=== PATIENT | female | born 1955 | race Hispanic/Latino ===

== ENCOUNTER 2018-03-09 11:18 | Emergency (ER) | payer BC ==
[~2018-03-09] VITALS: Ht 152.4 cm; Wt 90.7 kg
--- OUTSIDE RECORDS SUMMARY | 2018-03-09 11:22 | XMS REPORT | Summary of Care ---
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) Anxiety(Confirmed) Active Arrhythmia(Confirmed Active ) Back pain(Confirmed) Resolved Benign lipomatous Resolved tumor(Confirmed) Biopsy of lung using Resolved computed tomography (CT) guidance(Confirmed) Depression(Confirmed Active ) GERD Resolved (gastroesophageal reflux disease)(Confirmed) Hand Resolved numbness(Confirmed) Hard of Resolved hearing(Confirmed) Heart Resolved palpitations(Confirm ed) Hypercholesteremia(C Active onfirmed) Lung mass(Confirmed) Active 1lt eye blindness Allergies, Adverse Reactions, Alerts Substance Reaction Severity Status sulfa drugs Active Medications No data available for this section Medications Administered During Your Visit No data available for this section Immunizations No data available for this section Social History Social History Type Response
--- OUTSIDE RECORDS SUMMARY | 2018-03-09 11:22 | XMS REPORT | Continuity of Care Document ---
Author Author [facility] Interface Address Unknown Phone Unavailable Problems Problem Status Onset Date Classification Date Reported Comments Source DX: C34.90=MALIGNANT NEOPLASM OF UNSPECI Active 12/12/2017 [place] C34.90 Active 08/24/2017 [facility] Other specified interstitial pulmonary diseases 08/02/2017 11/02/2017 [facility] ACUTE RESPIRATORY, HYPOXEMIA, PNEUMONIA Active 07/20/2017 [facility] DIFF BREATHING Active 07/20/2017 [facility] Discharge Diagnosis: Acute low back pain with left-sided sciatica 09/07/2016 09/10/2016 [facility] BACK PAIN Active 09/07/2016 [facility] UNK Active 09/17/2015 [facility] LUNG CANCER Active 09/13/2015 [facility] Z12.31 - ENCNTR SCREEN MAMMOGRAM FOR MA Active 03/04/2015 [facility] [place] 786.6; ATRIAL MASS 162.9; ADENOCARCINOMA Active 06/24/2014 [facility] DIABETES Active 01/08/2014 [facility] RESTAGING DX:LUNG CA Active 11/27/2013 [facility] Acquired blindness, one eye<sup>1</sup> Active Problem 11/02/2017 [place] eye blindness [facility] [place] Acute rheumatic arthritis Resolved Problem 11/02/2017 [facility] [place] Anxiety Active Problem 11/02/2017 [facility] [place] Arrhythmia Active Problem 11/02/2017 [facility] [place] Back pain Resolved Problem 11/02/2017 [facility] [place] Benign lipomatous tumor Resolved Problem 11/02/2017 [facility] [place] Biopsy of lung using computed tomography guidance(<span ID="[id number]</span>) Resolved Problem 11/02/2017 [facility] [place] Depression Active Problem 11/02/2017 [facility] [place] GERD (<span ID="[id number]</span>) Resolved Problem 11/02/2017 [facility] [place] Hand numbness Resolved Problem 02/20/2014 [facility] [place] Hard of hearing Resolved Problem 11/02/2017 [facility] [place] Heart palpitations Resolved Problem 11/02/2017 [facility] [place] Hypercholesteremia Active Problem 02/20/2014 [facility] [place] Lung mass Active Problem 11/02/2017 [facility] [place] Arthritis Active Problem 11/02/2017 [facility], [facility] [place] COPD Active Problem 11/02/2017 [facility], [facility] [place] Diabetes Active Problem 11/02/2017 [facility], [facility] [place] Hand numbness Resolved Problem 11/02/2017 [facility] [place] Hypercholesteremia Active Problem 11/02/2017 [facility] [place] Acute pulmonary manifestations due to radiation 11/02/2017 [facility] Chronic obstructive pulmonary disease with exacerbation 11/02/2017 [facility] Type 2 diabetes mellitus with hypoglycemia without coma 11/02/2017 [facility] Body mass index 40.0-44.9, adult 11/02/2017 [facility] Personal history of other malignant neoplasm of bronchus and lung 11/02/2017 [facility] Adverse effect of glucocorticoids and synthetic analogues, initial encounter 11/02/2017 [facility] Radiological procedure and radiotherapy as the cause of abnormal reaction of the patient, or of later complication, without mention of misadventure at the time of the procedure 11/02/2017 [facility] predatory animal exterminator use of insulin 11/02/2017 [facility] Hyperlipidemia, unspecified 11/02/2017 [facility] Personal history of nicotine dependence 11/02/2017 [facility] Unqualified visual loss, left eye, normal vision right eye 11/02/2017 [facility] Other obesity due to excess calories 11/02/2017 [facility] Obstructive sleep apnea (pediatric) 11/02/2017 [facility] Bacteriuria 11/02/2017 [facility] Acute respiratory distress 11/02/2017 [facility] Hypoxemia 11/02/2017 [facility] Pure hyperglyceridemia Active Problem 02/10/2018 Barron De Jesus MD, [place] Benign hypertensive heart disease without heart failure Active Problem 02/10/2018 Barron De Jesus MD, [place] Malignant neoplasm of middle lobe, bronchus, or lung Active Problem 02/10/2018 Barron De Jesus MD, [place] Obesity, unspecified Active Problem 02/10/2018 Barron De Jesus MD, [place] Body mass index 38.0-38.9, adult Active Problem 02/10/2018 Barron De Jesus MD, [place] Type 2 diabetes mellitus with diabetic neuropathy, unspecified Active Problem 02/10/2018 Barron De Jesus MD, [place] Screening for cardiovascular disorders Active Problem 02/10/2018 Barron De Jesus MD, [place] Obesity, unspecified Active Problem 02/10/2018 Barron De Jesus MD, RONAL Malignant neoplasm of middle lobe, bronchus or lung Active Problem 02/10/2018 Barron De Jesus MD, [place] Hypertensive heart disease without heart failure Active Problem 02/10/2018 Barron De Jesus MD, [place] Pure hyperglyceridemia Active Problem 02/10/2018 Barron De Jesus MD, PA SOLITARY PULMONARY NODULE Active [facility] ACUTE RESPIRATORY DISTRESS Active [facility] HYPOXEMIA Active [facility] PNEUMONIA, UNSPECIFIED ORGANISM Active [facility] Medications Medication Details Route Status Patient Instructions Ordering Provider Order Date Source Levemir 10 unit, Route: SUB-Q, Bedtime, Dosing Weight 123.364, kg, Start date: 07/27/17 21:00:00 CDT, Duration: 30 day, Stop date: 08/25/17 21:00:00 CDT Inactive 07/28/2017 [facility] Lantus 100 units/mL 10 unit, 0.1 mL, Route: SUB-Q, Drug form: SOLN, Bedtime, Dosing Weight 123.364, kg, Start date: 07/27/17 21:00:00 CDT, Duration: 30 day, Stop date: 08/25/17 21:00:00 CDTNotes: (Same as: Lantus) Do not hold insulin without contacting prescriber WASTE: F/P - Black; E - Municipal Trash Bin "single patient use only" Inactive 07/28/2017 [facility] Insulin Syringes (U 100) 1 syr, SUB-Q, TID, # 100 syr, 0 Refill(s) Active 07/27/2017 [facility] OneTouch Ultra2 Blood Glucose Meter 1 ea, [facility], ONCE, Use for blood glucose monitoring, # 1 ea, Insulin dependent, Does not use insulin pump, Last DM eval date 07/27/17, 0 Refill(s) Active 07/27/2017 [facility] OneTouch Ultra Blue Blood Glucose Test Strip 1 ea, MISC, TID, Use for blood glucose monitoring., # 100 ea, Insulin dependent, Does not use insulin pump, Last DM eval date 07/27/17, 11 Refill(s) Active 07/27/2017 [facility] [place] for Injection Syringe Misc/Other 1 ea, MISC, Daily, # 30 ea, 11 Refill(s) Active 07/27/2017 [facility] Insulin Glargine 100 UNT/ML Injectable Solution 10 unit, SUB-Q, Bedtime, # 10 mL, 0 Refill(s), Pharmacy: [facility]/pharmacy #[id number] Active 07/27/2017 [facility] predniSONE 20 mg oral tablet 40 mg=2 tab, PO, Daily, X 14 day, # 28 tab, 0 Refill(s), Pharmacy: [facility]/pharmacy #[id number] No Longer Active 07/27/2017 [facility] Solu-Medrol 40 mg, 1 mL, Route: IVP, Drug form: INJ, Daily, Dosing Weight 115.909, kg, Start date: 07/26/17 9:00:00 CDT, Duration: 30 day, Stop date: 08/24/17 9:00:00 CDTNotes: (Same as:Solu-MEDROL, A-Methapred) No Longer Active 07/26/2017 [facility] Prednisone 40 mg, 2 tab, Route: PO, Drug form: TAB, Daily, Dosing Weight 123.364, kg, Start date: 07/26/17 9:00:00 CDT, Duration: 30 day, Stop date: 08/24/17 9:00:00 CDTNotes: Take with food. No Longer Active 07/26/2017 [facility] Insulin Glargine 100 UNT/ML Injectable Solution [Lantus] 25 unit, 0.25 mL, Route: SUB-Q, Drug form: SOLN, Bedtime, Dosing Weight 123.364, kg, Start date: 07/25/17 21:00:00 CDT, Duration: 30 day, Stop date: 08/23/17 21:00:00 CDTNotes: (Same as: Lantus) Do not hold insulin without contacting prescriber WASTE: F/P - Black; E - Municipal Trash Bin "single patient use only" No Longer Active 07/26/2017 [facility] Diflucan 200 mg, 2 tab, Route: PO, Drug form: TAB, [id number], Dosing Weight 123.364, kg, Start date: 07/25/17 18:00:00 CDT, Duration: 5 day, Stop date: 07/29/17 18:00:00 CDT, ABX Indication: Other (specify in C omments)Notes: (Same as: Diflucan) No Longer Active 07/25/2017 [facility] cetirizine 10 mg, 2 tab, Route: PO, Drug form: TAB, Daily, PRN Allergies, Start date: 07/25/17 9:33:00 CDT, Duration: 30 day, Stop date: 08/24/17 9:32:00 CDTNotes: (Same As: Zyrtec) No Longer Active 07/25/2017 [facility] Loratadine 10 mg, Route: PO, Drug form: TAB, Daily, Dosing Weight 123.364, kg, PRN Allergies, Start date: 07/25/17 9:26:00 CDT, Duration: 30 day, Stop date: 08/24/17 9:25:00 CDT Inactive 07/25/2017 [facility] Insulin Lispro 10 unit, 0.1 mL, Route: SUB-Q, Drug form: SOLN, TID-Before Meals, Dosing Weight 123.364, kg, PRN Blood Glucose Results, Start date: 07/25/17 9:05:00 CDT, Duration: 30 day, Stop date: 08/24/17 9:04:00 CDTNotes: (Same as: Humalog ) Roll in palms of hands gently; Do not shake `vigorously. "Single Patient Use Only " WASTE: F/P - Black; E - Municipal Trash Bin Stable for 28 days at room temperature. Expires in days from Date No Longer Active 07/25/2017 [facility] Glucagon 1 mg, Route: IM, Drug form: PDR/INJ, PRN, Dosing Weight 123.364, kg, PRN Blood Glucose Results, Start date: 07/25/17 9:05:00 CDT, Duration: 30 day, Stop date: 08/24/17 9:04:00 CDT No Longer Active 07/25/2017 [facility] Dextrose 50% Syringe 12.5 gm, 25 mL, Route: IVP, Drug Form: INJ, Dosing Weight 123.364, kg, PRN, PRN Blood Glucose Results, Start date: 07/25/17 9:05:00 CDT, Duration: 30 day, Stop date: 08/24/17 9:04:00 CDT No Longer Active 07/25/2017 [facility] Solu-Medrol 40 mg, 1 mL, Route: IVP, Drug form: INJ, Q12H, Dosing Weight 115.909, kg, Start date: 07/24/17 21:00:00 CDT, Duration: 30 day, Stop date: 08/23/17 9:00:00 CDTNotes: (Same as:Solu-MEDROL, A-Methapred) No Longer Active 07/25/2017 [facility] Insulin Glargine 100 UNT/ML Injectable Solution [Lantus] 10 unit, 0.1 mL, Route: SUB-Q, Drug form: SOLN, Bedtime, Dosing Weight 123.364, kg, Start date: 07/23/17 21:00:00 CDT, Duration: 30 day, Stop date: 08/21/17 21:00:00 CDTNotes: (Same as: Lantus) Do not hold insulin without contacting prescriber WASTE: F/P - Black; E - Municipal Trash Bin "single patient use only" No Longer Active 07/24/2017 [facility] Insulin Lispro 2 unit, 0.02 mL, Route: SUB-Q, Drug form: SOLN, Bedtime, Dosing Weight 123.364, kg, PRN Blood Glucose Results, Start date: 07/23/17 20:54:00 CDT, Duration: 30 day, Stop date: 08/22/17 20:53:00 CDTNotes: (Same as: Humalog ) Roll in palms of hands gently; Do not shake `vigorously. "Single Patient Use Only " WASTE: F/P - Black; E - Municipal Trash Bin Stable for 28 days at room temperature. Expires in days from Date No Longer Active 07/24/2017 [facility] Dextrose 50% Syringe 25 gm, 50 mL, Route: IVP, Drug Form: INJ, Dosing Weight 123.364, kg, PRN, PRN Blood Glucose Results, Start date: 07/23/17 20:54:00 CDT, Duration: 30 day, Stop date: 08/22/17 20:53:00 CDT No Longer Active 07/24/2017 [facility] Glucagon 1 mg, Route: IM, Drug form: PDR/INJ, PRN, Dosing Weight 123.364, kg, PRN Blood Glucose Results, Start date: 07/23/17 20:54:00 CDT, Duration: 30 day, Stop date: 08/22/17 20:53:00 CDT No Longer Active 07/24/2017 [facility] Insulin Lispro 2 unit, 0.02 mL, Route: SUB-Q, Drug form: SOLN, TID-Before Meals, Dosing Weight 123.364, kg, PRN Blood Glucose Results, Start date: 07/23/17 12:45:00 CDT, Duration: 30 day, Stop date: 08/22/17 12:44: 00 CDTNotes: (Same as: Humalog ) Roll in palms of hands gently; Do not shake `vigorously. "Single Patient Use Only " WASTE: F/P - Black; E - Municipal Trash Bin Stable for 28 days at room temperature. Expires in days from Date No Longer Active 07/23/2017 [facility] Dextrose 50% Syringe 25 gm, 50 mL, Route: IVP, Drug Form: INJ, Dosing Weight 123.364, kg, PRN, PRN Blood Glucose Results, Start date: 07/23/17 12:45:00 CDT, Duration: 30 day, Stop date: 08/22/17 12:44:00 CDT No Longer Active 07/23/2017 [facility] Glucagon 1 mg, Route: IM, Drug form: PDR/INJ, PRN, Dosing Weight 123.364, kg, PRN Blood Glucose Results, Start date: 07/23/17 12:45:00 CDT, Duration: 30 day, Stop date: 08/22/17 12:44:00 CDT No Longer Active 07/23/2017 [facility] Solu-Medrol 40 mg, 1 mL, Route: IVP, Drug form: INJ, Q8H, Dosing Weight 115.909, kg, Start date: 07/22/17 8:00:00 [employer], Duration: 30 day, Stop date: 08/21/17 0:00:00 CDTNotes: (Same as:Solu-MEDROL, A-Methapred) No Longer Active 07/22/2017 [facility] Lasix 20 mg, 2 mL, Route: IVP, Drug form: INJ, ONCE, Dosing Weight 115.909, kg, Start date: 07/22/17 7:48:00 [employer], Stop date: 07/22/17 7:48:00 CSTNotes: (Same as: Lasix) Inactive 07/22/2017 [facility] Singulair 10 mg, 1 tab, Route: PO, Drug form: TAB, QPM, Dosing Weight 115.909, kg, Start date: 07/21/17 17:00:00 [employer], Duration: 30 day, Stop date: 08/19/17 17:00:00 CDTNotes: (Same as:Singulair) No Longer Active 07/21/2017 [facility] Breo Ellipta 100 mcg-25 mcg inhalation powder 1 inhalation, Route: INHALATION, Drug Form: PWDR, Dosing Weight 115.909, kg, QPM, Start date: 07/21/17 17:00:00 [employer], Duration: 30 day, Stop date: 08/19/17 21:00:00 CDTNotes: (Same as: Breo Ellipta) No Longer Active 07/21/2017 [facility] Ceftriaxone 1 gm, Route: IVP, Drug form: PDR/INJ, [id number], Dosing Weight 106.818, kg, Start date: 07/21/17 16:00:00 [employer], Duration: 7 day, Stop date: 07/27/17 16:00:00 CDT, ABX Indication: PneumoniaNotes: (Same As: Rocephin). Use with 100 mL NS and infuse over 30 min MEDICATION WASTE Product Size: 1000 mg Product Wasted: ___ mg No Longer Active 07/21/2017 [facility] Azithromycin 500 mg, Route: IVPB, [id number], Dosing Weight 106.818, kg, Start date: 07/21/17 16:00:00 [employer], Duration: 3 day, Stop date: 07/23/17 16:00:00 CDT, ABX Indication: PneumoniaNotes: (Same As: Zithromax IV) No Longer Active 07/21/2017 [facility] Lovenox 40 mg, 0.4 mL, Route: SUB-Q, Drug form: INJ, [id number], Dosing Weight 115.909, kg, Start date: 07/21/17 16:00:00 [employer]SEM[employer]ER, Duration: 30 day, Stop date: 08/19/17 16:00:00 CDTNotes: (Same as: Lovenox) No Longer Active 07/21/2017 [facility] pneumococcal capsular polysaccharide type 1 vaccine / pneumococcal capsular polysaccharide type 10A vaccine / pneumococcal capsular polysaccharide type 11A vaccine / pneumococcal capsular polysaccharide type 12F vaccine / pneumococcal capsular polysacchar 0.5 mL, Route: IM, Drug Form: INJ, Daily, Start date: 07/21/17 9:00:00 [employer], Duration: 1 doses or times, Stop date: 07/21/17 9:00:00 CSTNotes: (Same as: Pneumovax 23) Refrigerate Inactive 07/21/2017 [facility] Crestor 5 mg, 1 tab, Route: PO, Drug form: TAB, Daily, Dosing Weight 115.909, kg, Start date: 07/21/17 9:00:00 [employer], Duration: 30 day, Stop date: 08/19/17 21:00:00 CDTNotes: Same as Crestor No Longer Active 07/21/2017 [facility] Lisinopril 5 mg, 1 tab, Route: PO, Drug form: TAB, Daily, Dosing Weight 115.909, kg, Start date: 07/21/17 9:00:00 [employer], Duration: 30 day, Stop date: 08/19/17 9:00:00 CDTNotes: (Same as: Prinivil, Zestril) No Longer Active 07/21/2017 [facility] gabapentin 300 MG Oral Capsule 300 mg, 1 cap, Route: PO, Drug form: CAP, BID, Dosing Weight 115.909, kg, Start date: 07/21/17 9:00:00 [employer], Duration: 30 day, Stop date: 08/19/17 17:00:00 CDTNotes: (Same as: Neurontin) No Longer Active 07/21/2017 [facility] tramadol hydrochloride 50 MG Oral Tablet 50 mg, 1 tab, Route: PO, Drug form: TAB, Q12H, Dosing Weight 115.909, kg, Start date: 07/20/17 21:00:00 [employer]SEMBLER, Duration: 30 day, Stop date: 08/19/17 9:00:00 CDTNotes: Not to exceed 400mg/day. (Same As: Ultram) No Longer Active 07/21/2017 [facility] Doxepin Hydrochloride 25 MG Oral Capsule 25 mg, 1 cap, Route: PO, Drug form: CAP, Bedtime, Dosing Weight 115.909, kg, Start date: 07/20/17 21:00:00 [employer] ENG[employer]SEM[employer]ER, Duration: 30 day, Stop date: 08/18/17 21:00:00 CDTNotes: (Same as: SINEquan) No Longer Active 07/21/2017 [facility] Symbicort 80/4.5 inhalation aerosol with adapter 2 inhalation, Route: INHALATION, Drug Form: AERO/A, Dosing Weight 115.909, kg, Daily, PRN Shortness of breath, Start date: 07/20/17 20:45:00 [employer] ENG[employer]SEMBLER, Duration: 30 day, Stop date: 08/19/17 20:44:00 CDTNotes: (Same as: Symbicort) WASTE: Aerosol - Return to Pharmacy No Longer Active 07/21/2017 [facility] Alprazolam 0.25 MG Oral Tablet 0.25 mg, 1 tab, Route: PO, Drug form: TAB, Daily, Dosing Weight 115.909, kg, PRN Anxiety, Start date: 07/20/17 20:45:00 [employer]SEM[employer]ER, Duration: 30 day, Stop date: 08/19/17 20:44:00 CDTNotes: With food or milk (Same as: Xanax) No Longer Active 07/21/2017 [facility] Tylenol 650 mg, 20.3 mL, Route: PO, Drug form: LIQ, Q4H, Dosing Weight 115.909, kg, PRN Headache 7-10, Start date: 07/20/17 18:17:00 [employer]SEMBLER, Duration: 30 day, Stop date: 08/19/17 18:16:00 CDTNotes: Max acetaminoph ii=1976ik/day (4 gm/day). (Same as: Tylenol) No Longer Active 07/21/2017 [facility] Albuterol 0.833 MG/ML / Ipratropium [place] 0.167 MG/ML Inhalant Solution 3 mL, Route: NEB, Drug Form: SOLN, Dosing Weight 106.818, kg, PRN, PRN Respiratory Protocol, Start date: 07/20/17 17:15:00 [employer]SEM[employer]ER, Duration: 30 day, Stop date: 08/19/17 18:14:00 CDTNotes: (Same as: Duoneb) No Longer Active 07/20/2017 [facility] Sodium Chloride 0.9% IV 1,000 mL 1,000 mL, Rate: 100 ml/hr, Infuse over: 10 hr, Route: IV, Dosing Weight 106.818 kg, Total Volume: 1,000, Start date: 07/20/17 17:15:00 [employer]SEMBLER, Duration: 30 day, Stop date: 08/19/17 17:14:00 CDT, 2.17, m2 No Longer Active 07/20/2017 [facility] Saline Flush 0.9% 10 ml, Route: IVP, Drug Form: INJ, Dosing Weight 106.818, kg, PRN, PRN Line Flush, Start date: 07/20/17 17:15:00 [employer] ENG[employer]SEMBLER, Duration: 30 day, Stop date: 08/19/17 18:14:00 CDTNotes: (Same as: BD Posiflush) No Longer Active 07/20/2017 [facility] Guaifenesin 200 mg, 10 mL, Route: PO, Drug form: LIQ, Q4H, Dosing Weight 106.818, kg, PRN Cough, Start date: 07/20/17 17:15:00 [employer]SEM[employer]ER, Duration: 30 day, Stop date: 08/19/17 17:14:00 CDTNotes: (Same as: Robitussin) No Longer Active 07/20/2017 [facility] amoxicillin 875 mg oral tablet 875 mg=1 tab, PO, Q12H, 0 Refill(s) No Longer Active 07/20/2017 [facility] Symbicort 80/4.5 inhalation aerosol with adapter 2 puff, INHALATION, Daily, PRN Shortness of breath, 0 Refill(s) Active 07/20/2017 [facility] benzonatate 100 mg oral capsule 100 mg=1 cap, PO, TID, PRN as needed for cough, 0 Refill(s) Active 07/20/2017 [facility] Breo Ellipta 100 mcg-25 mcg inhalation powder 1 puff, INHALATION, QPM, 0 Refill(s) Active 07/20/2017 [facility] Incruse Ellipta 62.5 mcg inhalation powder 62.5 microgram, INHALATION, Q24H, 0 Refill(s) Active 07/20/2017 [facility] tramadol hydrochloride 50 MG Oral Tablet 50 mg=1 tab, PO, Q12H, 0 Refill(s) Active 07/20/2017 [facility] montelukast 10 MG Oral Tablet [Singulair] 10 mg=1 tab, PO, QPM, 0 Refill(s) Active 07/20/2017 [facility] Metformin hydrochloride 1000 MG Oral Tablet 500 mg=0.5 tab, PO, QPM, 0 Refill(s) Active 07/20/2017 [facility] celecoxib 200 mg oral capsule 200 mg=1 cap, PO, BID, 0 Refill(s) Active 07/20/2017 [facility] Metformin hydrochloride 1000 MG Oral Tablet 1,000 mg=1 tab, PO, QAM, 0 Refill(s) Active 07/20/2017 [facility] Ceftriaxone 1 gm, Route: IVP, ONCE, Dosing Weight 106.818, kg, Priority: STAT, Start date: 07/20/17 14:19:00 [employer]SEM[employer]ER, Stop date: 07/20/17 14:19:00 [employer]INE [employer]SEMBLER, ABX Indication: PneumoniaNotes: (Same As: Rocephin). Use with 100 mL NS and infuse over 30 min MEDICATION WASTE Product Size: 1000 mg Product Wasted: ___ mg Inactive 07/20/2017 [facility] Azithromycin 500 mg, Route: IVPB, ONCE, Dosing Weight 106.818, kg, Priority: STAT, Start date: 07/20/17 14:19:00 [employer]ARY ENGINE ASSEMBLER, Stop date: 07/20/17 14:19:00 [employer]ARY ENGINE ASSEMBLER, ABX Indication: PneumoniaNotes: (Same As: Zithromax IV) Inactive 07/20/2017 [facility] Albuterol 0.833 MG/ML / Ipratropium [place] 0.167 MG/ML Inhalant Solution 9 mL, Route: NEB, Drug Form: SOLN, Dosing Weight 106.818, kg, ONCE, STAT, Start date: 07/20/17 12:18:00 [employer]ARY ENGINE ASSEMBLER, Stop date: 07/20/17 12:18:00 [employer]ARY ENGINE ASSEMBLER Inactive 07/20/2017 [facility] Acetaminophen 300 MG / Codeine Phosphate 30 MG Oral Tablet [Tylenol with Codeine #3] 1 - 2 tab, PO, Q4H, PRN Pain, X 2 day, # 20 tab, 0 Refill(s) No Longer Active 09/07/2016 [facility] Diazepam 5 MG Oral Tablet [Valium] 5 mg, PO, Q8-12H, PRN Anxiety / dizziness, X 7 day, # 20 tab, 0 Refill(s) Active 09/07/2016 [facility] Dexamethasone 10 mg, 2.5 mL, Route: IM, Drug form: INJ, ONCE, Dosing Weight 106.818, kg, Priority: STAT, Start date: 09/07/16 7:47:00 CDT, Stop date: 09/07/16 7:47:00 CDT Inactive 09/07/2016 [facility] Valium 5 mg, 1 tab, Route: PO, Drug form: TAB, ONCE, Dosing Weight 106.818, kg, Priority: STAT, Start date: 09/07/16 7:37:00 CDT, Stop date: 09/07/16 7:37:00 CDTNotes: (Same as: Valium) Inactive 09/07/2016 [facility] Acetaminophen 325 MG / Hydrocodone Bitartrate 10 MG Oral Tablet [[place] 10/325] 1 tab, Route: PO, Drug Form: TAB, Dosing Weight 106.818, kg, ONCE, STAT, Start date: 09/07/16 7:36:00 CDT, Stop date: 09/07/16 7:36:00 CDTNotes: Do not exceed 4gm/day of acetaminophen. (Same as: [place] 325/10) Inactive 09/07/2016 [facility] Ketorolac 60 mg, 2 mL, Route: IM, Drug form: INJ, ONCE, Dosing Weight 106.818, kg, Priority: STAT, Start date: 09/07/16 7:34:00 CDT, Stop date: 09/07/16 7:34:00 CDTNotes: (Same as:Toradol) IV bolus must be given >15 seconds. Give IM administration slowly and deeply into the muscle. Not for use > 4 days MEDICATION WASTE Product Size: 60 mg Product Wasted: ___ mg Inactive 09/07/2016 [facility] Lasix 20 mg, 2 mL, Route: IVP, Drug form: INJ, Q6H, Dosing Weight 108.864, kg, Start date: 09/28/15 16:54:00 CDT, Stop date: 09/28/15 23:00:00 CDTNotes: (Same as: Lasix) Inactive 09/28/2015 [facility] Insulin, Aspart, Human 8 unit, 0.08 mL, Route: SUB-Q, Drug form: SOLN, TID-Before Meals, Dosing Weight 108.864, kg, PRN Blood Glucose Results, Start date: 09/28/15 15:45:00 CDT, Duration: 30 day, Stop date: 10/28/15 15:44:00 CDTNotes: Roll in palms of hands gently; Do not shake vigorously. (Same as: NovoLOG) "single patient use only" WASTE: F/P - Black; E - Municipal Trash Bin Stable for 28 days at room temperature. Expires in days from Date No Longer Active 09/28/2015 [facility] Dextrose 50% Syringe 25 gm, 50 mL, Route: IVP, Drug Form: INJ, Dosing Weight 108.864, kg, PRN, PRN Blood Glucose Results, Start date: 09/28/15 15:45:00 CDT, Duration: 30 day, Stop date: 10/28/15 15:44:00 CDT No Longer Active 09/28/2015 [facility] Glucagon 1 mg, Route: IM, Drug form: PDR/INJ, PRN, Dosing Weight 108.864, kg, PRN Blood Glucose Results, Start date: 09/28/15 15:45:00 CDT, Duration: 30 day, Stop date: 10/28/15 15:44:00 CDT No Longer Active 09/28/2015 [facility] Lasix 20 mg, 2 mL, Route: IV, Drug form: INJ, ONCE, Dosing Weight 108.864, kg, PRN Blood Transfusion, Start date: 09/28/15 9:27:00 CDT, Stop date: 09/28/15 9:27:00 CDTNotes: (Same as: Lasix) Inactive 09/28/2015 [facility] Venofer 300 mg, 15 mL, Route: IV, BID, Dosing Weight 108.864, kg, Start date: 09/28/15 9:00:00 CDT, Duration: 6 doses or times, Stop date: 09/30/15 17:00:00 CDTNotes: Each 5ml contains 100mg elemental iron. Mix with NS (Same as:Venofer) Administer IV only. MEDICATION WASTE Product Size: 100 mg Product Wasted: ___ mg No Longer Active 09/28/2015 [facility] Solu-Cortef 25 mg, 0.5 mL, Route: IVP, Drug form: PDR/INJ, Q12H, Dosing Weight 108.864, kg, Start date: 09/28/15 0:00:00 CDT, Duration: 30 day, Stop date: 10/27/15 12:00:00 CDTNotes: (Same as: Solu-CORTEF) No Longer Active 09/28/2015 [facility] Milk of Magnesia 30 ml, Route: PO, Drug Form: SUSP, Dosing Weight 108.864, kg, Bedtime, PRN as needed for constipation, Start date: 09/27/15 14:48:00 CDT, Duration: 30 day, Stop date: 10/27/15 14:47:00 CDTNotes: (Same as: Milk of Magnesia, MOM) No Longer Active 09/27/2015 [facility] Morphine 4 mg, 2 mL, Route: IV, Drug form: INJ, ONCALL, Dosing Weight 108.864, kg, Start date: 09/27/15 9:00:00 CDT, Duration: 30 day, Stop date: 10/27/15 8:59:00 CDTNotes: (Same as:MORPhine Sulfate) Inactive 09/27/2015 [facility] Albuterol 0.83 MG/ML Inhalant Solution 2.5 mg, 3.01 mL, Route: NEB, Drug form: SOLN, RQ4H, Dosing Weight 108.864, kg, Start date: 09/27/15 7:00:00 CDT, Duration: 30 day, Stop date: 10/27/15 3:00:00 CDTNotes: SEE RT DOCUMENTATION (Same as: Proventil) No Longer Active 09/27/2015 [facility] Solu-Cortef 50 mg, 1 mL, Route: IVP, Drug form: PDR/INJ, Q12H, Dosing Weight 108.864, kg, Start date: 09/27/15 0:00:00 CDT, Duration: 30 day, Stop date: 10/26/15 12:00:00 CDTNotes: (Same as: Solu-CORTEF) Inactive 09/27/2015 [facility] Acetaminophen 325 MG / Hydrocodone Bitartrate 5 MG Oral Tablet 1 tab, Route: PO, Drug Form: TAB, Dosing Weight 108.864, kg, Q6H, PRN Pain Score 1-3, Start date: 09/26/15 14:49:00 CDT, Duration: 30 day, Stop date: 10/26/15 14:48:00 CDT Inactive 09/26/2015 [facility] Lasix 20 mg, 2 mL, Route: IV, Drug form: INJ, Daily, Dosing Weight 108.864, kg, Start date: 09/26/15 9:00:00 CDT, Duration: 30 day, Stop date: 10/25/15 9:00:00 CDTNotes: (Same as: Lasix) No Longer Active 09/26/2015 [facility] Lasix 20 mg, 2 mL, Route: IV, Drug form: INJ, ONCE, Dosing Weight 108.864, kg, Priority: NOW, Start date: 09/26/15 8:37:00 CDT, Stop date: 09/26/15 8:37:00 CDTNotes: (Same as: Lasix) Inactive 09/26/2015 [facility] Acetaminophen 300 MG / Codeine Phosphate 30 MG Oral Tablet [Tylenol with Codeine #3] 2 tab, Route: PO, Drug Form: TAB, Dosing Weight 108.864, kg, Q4H, PRN Pain Score 1-3, Start date: 09/26/15 8:36:00 CDT, Duration: 30 day, Stop date: 10/26/15 8:35:00 CDTNotes: Do not exceed 4gm/day of a cetaminophen. (Same as: Tylenol with Codeine # 3) No Longer Active 09/26/2015 [facility] Morphine 4 mg, 2 mL, Route: IV, Drug form: INJ, Q4H, Dosing Weight 108.864, kg, PRN Pain Score 4-6, Start date: 09/26/15 8:36:00 CDT, Duration: 30 day, Stop date: 10/26/15 8:35:00 CDTNotes: (Same as:MORPhine Sulfate) No Longer Active 09/26/2015 [facility] potassium chloride 20 mEq, 100 mL, Route: IV, Drug form: INJ, ONCE, Dosing Weight 108.864, kg, Start date: 09/26/15 8:35:00 CDT, Stop date: 09/26/15 8:35:00 CDTNotes: (Same as: KCL) Infuse no faster than 10 mEq/hr if given peripherally. Inactive 09/26/2015 [facility] Lasix 20 mg, 2 mL, Route: IV, Drug form: INJ, ONCE, Dosing Weight 108.864, kg, Priority: STAT, Start date: 09/25/15 22:19:00 CDT, Stop date: 09/25/15 22:19:00 CDTNotes: (Same as: Lasix) Inactive 09/26/2015 [facility] Protonix 40 mg, 1 tab, Route: PO, Drug form: ECTAB, Before Dinner, Start date: 09/25/15 16:30:00 CDT, Duration: 30 day, Stop date: 10/24/15 16:30:00 CDTNotes: Tablet should not be chewed or crushed. (Same as: Protonix) No Longer Active 09/25/2015 [facility] Lasix 20 mg, 2 mL, Route: IVP, Drug form: INJ, ONCE, Dosing Weight 108.864, kg, Start date: 09/25/15 16:22:00 CDT, Stop date: 09/25/15 16:22:00 CDTNotes: (Same as: Lasix) Inactive 09/25/2015 [facility] Zofran 4 mg, 2 mL, Route: IVP, Drug form: INJ, Q4H, Dosing Weight 108.864, kg, PRN Nausea, Start date: 09/25/15 11:38:00 CDT, Duration: 30 day, Stop date: 10/25/15 11:37:00 CDTNotes: (Same as: Zofran) MEDICATION WASTE Product Size: 4 mg Product Wasted: ___ mg No Longer Active 09/25/2015 [facility] Sodium Chloride 0.154 MEQ/ML Injectable Solution 250 mL, Rate: 30 ml/hr, Infuse over: 8.3 hr, Route: IV, Dosing Weight 108.864 kg, Total Volume: 250, Start date: 09/25/15 10:26:00 CDT, Duration: 30 day, Stop date: 10/25/15 10:25:00 CDT No Longer Active 09/25/2015 [facility] Morphine 3 mg, 1.5 mL, Route: IVP, Drug form: INJ, Q3H, Dosing Weight 108.864, kg, PRN Pain Score 7-10, Start date: 09/25/15 10:23:00 CDT, Duration: 30 day, Stop date: 10/25/15 10:22:00 CDTNotes: (Same as:MORPhine Sulfate) No Longer Active 09/25/2015 [facility] Sodium Chloride 0.154 MEQ/ML Injectable Solution 1,000 mL, Rate: 75 ml/hr, Infuse over: 13.3 hr, Route: IV, Dosing Weight 108.864 kg, Total Volume: 1,000, Start date: 09/25/15 10:19:00 CDT, Duration: 30 day, Stop date: 10/25/15 10:18:00 CDT Inactive 09/25/2015 [facility] magnesium sulfate + Sodium Chloride 0.9% IV 100 mL 3 gm, 6 mL, Route: IVPB, ONCE, Start date: 09/25/15 10:02:00 CDT, Stop date: 09/25/15 10:02:00 CDTNotes: (Same as: MgSO4) WASTE: F/P - Sink; E - Municipal Trash Bin MEDICATION WASTE Product Size: 1000 mg Product Wasted: ___ mg Inactive 09/25/2015 [facility] Magnesium Sulfate 3 gm, Route: IV, ONCE, Dosing Weight 108.864, kg, Start date: 09/25/15 9:42:00 CDT, Stop date: 09/25/15 9:42:00 CDT Inactive 09/25/2015 [facility] Omeprazole 40 mg, Route: PO, Drug form: DRC, Daily, Dosing Weight 108.864, kg, Start date: 09/25/15 9:00:00 CDT, Duration: 30 day, Stop date: 10/24/15 9:00:00 CDT No Longer Active 09/25/2015 [facility] gabapentin 300 MG Oral Capsule 300 mg, 1 cap, Route: PO, Drug form: CAP, Daily, Dosing Weight 108.864, kg, Start date: 09/25/15 9:00:00 CDT, Duration: 30 day, Stop date: 10/24/15 20:00:00 CDTNotes: (Same as: Neurontin) No Longer Active 09/25/2015 [facility] Doxepin Hydrochloride 25 MG Oral Capsule 25 mg, 1 cap, Route: PO, Drug form: CAP, Daily, Dosing Weight 108.864, kg, Start date: 09/25/15 9:00:00 CDT, Duration: 30 day, Stop date: 10/24/15 20:00:00 CDTNotes: (Same as: SINEquan) No Longer Active 09/25/2015 [facility] heparin 5,000 unit, 1 mL, Route: SUB-Q, Drug form: INJ, Q12H, Dosing Weight 108.864, kg, Start date: 09/25/15 9:00:00 CDT, Duration: 30 day, Stop date: 10/24/15 21:00:00 CDTNotes: porcine heparin No Longer Active 09/25/2015 [facility] Phenergan 12.5 mg, 0.5 mL, Route: IV Central, Q12H, Dosing Weight 108.864, kg, PRN Nausea & Vomiting, Start date: 09/25/15 8:50:00 CDT, Duration: 30 day, Stop date: 10/25/15 8:49:00 CDTNotes: Do not give IV push. (Same as: Phenergan) No Longer Active 09/25/2015 [facility] heparin 5,000 unit, Route: SUB-Q, Q12H, Dosing Weight 108.864, kg, Start date: 09/25/15 8:00:00 CDT, Duration: 30 day, Stop date: 10/24/15 21:00:00 CDT No Longer Active 09/25/2015 [facility] Morphine 3 mg, 1.5 mL, Route: IVP, Drug form: INJ, ONCE, Dosing Weight 108.864, kg, Start date: 09/25/15 7:44:00 CDT, Stop date: 09/25/15 7:44:00 CDTNotes: (Same as:MORPhine Sulfate) Inactive 09/25/2015 [facility] Solu-Cortef 50 mg, 1 mL, Route: IVP, Drug form: PDR/INJ, Q6H, Dosing Weight 108.864, kg, Start date: 09/25/15 6:00:00 CDT, Stop date: 10/25/15 0:00:00 CDTNotes: (Same as: Solu-CORTEF) No Longer Active 09/25/2015 [facility] Fentanyl 50 microgram, 1 mL, Route: IV, Drug form: INJ, Q30Min, Dosing Weight 108.864, kg, PRN Pain Score 6-10, Priority: Routine, Start date: 09/25/15 1:36:00 CDT, Duration: 30 day, Stop date: 10/25/15 1:35:00 CDTNotes: (Same as: Sublimaze) Preservative free. No Longer Active 09/25/2015 [facility] Fentanyl 50 microgram, 1 mL, Route: IV, Drug form: INJ, ONCE, Dosing Weight 108.864, kg, Start date: 09/25/15 1:35:00 CDT, Stop date: 09/25/15 1:35:00 CDTNotes: (Same as: Sublimaze) Preservative free. Inactive 09/25/2015 [facility] Solu-Cortef 100 mg, 2 mL, Route: IV, Drug form: PDR/INJ, ONCE, Dosing Weight 108.864, kg, Priority: NOW, Start date: 09/25/15 1:34:00 CDT, Stop date: 09/25/15 1:34:00 CDTNotes: (Same as: Solu-CORTEF) Inactive 09/25/2015 [facility] Fentanyl 50 microgram, 1 mL, Route: IVP, Drug form: INJ, ONCE, Dosing Weight 108.864, kg, Start date: 09/25/15 0:09:00 CDT, Stop date: 09/25/15 0:09:00 CDTNotes: (Same as: Sublimaze) Preservative free. Inactive 09/25/2015 [facility] Sodium Chloride 0.154 MEQ/ML Injectable Solution 1,000 mL, 1,000 ml/hr, Infuse Over: 1 hr, Route: IV, ONCE, Priority: STAT, Dosing Weight 108.864 kg, Start date: 09/25/15 0:08:00 CDT, Duration: 1 doses or times, Stop date: 09/25/15 0:08:00 CDT Inactive 09/25/2015 [facility] Albuterol 0.83 MG/ML Inhalant Solution 2.49 mg, 3 mL, Route: NEB, Drug form: SOLN, RQ4H, Dosing Weight 108.864, kg, Start date: 09/24/15 23:00:00 CDT, Duration: 30 day, Stop date: 10/24/15 19:00:00 CDTNotes: SEE RT DOCUMENTATION (Same as: Proventil) No Longer Active 09/25/2015 [facility] Cefoxitin 1000 MG Injection 1 gm, Route: IVPB, Drug form: INJ, ABXQ6H, Dosing Weight 108.864, kg, Start date: 09/24/15 21:00:00 CDT, Duration: 24 hr, Stop date: 09/25/15 15:00:00 CDT Inactive 09/25/2015 [facility] Naloxone 0.04 mg, 0.1 mL, Route: IVP, Drug form: INJ, Q2MIN, Dosing Weight 108.864, kg, PRN Narcotic Reversal, Start date: 09/24/15 20:54:00 CDT, Duration: 30 day, Stop date: 10/24/15 20:53:00 CDTNotes: Same as Narcan No Longer Active 09/25/2015 [facility] Morphine 30 mg, 30 mL, Route: IV, COMPLIANCE MONITOR Dose: 1 mg, COMPLIANCE MONITOR Lockout: 10 minutes, Continuous Basal Rate: 0 mg, 4 Hour Limit (In MG): 24, Drug Form: INJ, Continuous, Pain, Start date: 09/24/15 20:54:00 CDT, Duration: 30 day, Stop date: 10/24/15 20:53:00 CDTNotes: Dose: Delay: Basal rate: 4hr limit: (Same as:Rolf-Jenifer) No Longer Active 09/25/2015 [facility] Sodium Chloride 0.154 MEQ/ML Injectable Solution 1,000 mL, Rate: 75 ml/hr, Infuse over: 13.3 hr, Route: IV, Dosing Weight 108.864 kg, Total Volume: 1,000, Start date: 09/24/15 20:54:00 CDT, Duration: 30 day, Stop date: 10/24/15 20:53:00 CDT No Longer Active 09/25/2015 [facility] Insulin, Aspart, Human 4 unit, 0.04 mL, Route: SUB-Q, Drug form: SOLN, Bedtime, Dosing Weight 108.864, kg, PRN Blood Glucose Results, Start date: 09/24/15 19:04:00 CDT, Duration: 30 day, Stop date: 10/24/15 19:03:00 CDTNotes: Roll in palms of hands gently; Do not shake vigorously. (Same as: NovoLOG) "single patient use only" WASTE: F/P - Black; E - Squrl Trash Bin Stable for 28 days at room temperature. Expires in days from Date No Longer Active 09/25/2015 [facility] Glucagon 1 mg, Route: IM, Drug form: PDR/INJ, PRN, Dosing Weight 108.864, kg, PRN Blood Glucose Results, Start date: 09/24/15 19:04:00 CDT, Duration: 30 day, Stop date: 10/24/15 19:03:00 CDT No Longer Active 09/25/2015 [facility] Dextrose 50% Syringe 12.5 gm, 25 mL, Route: IVP, Drug Form: INJ, Dosing Weight 108.864, kg, PRN, PRN Blood Glucose Results, Start date: 09/24/15 19:04:00 CDT, Duration: 30 day, Stop date: 10/24/15 19:03:00 CDT No Longer Active 09/25/2015 [facility] Tylenol 650 mg, 2 tab, Route: PO, Drug form: TAB, Q6H, Dosing Weight 108.864, kg, PRN Pain 1-3/Temp > 100.4 F, Start date: 09/24/15 19:04:00 CDT, Duration: 30 day, Stop date: 10/24/15 19:03:00 CDTNotes: Do not exceed 4 gm/day. (Same as: Tylenol) No Longer Active 09/25/2015 [facility] Zofran 4 mg, Route: IV, Q6H, Dosing Weight 108.864, kg, PRN Nausea, Start date: 09/24/15 19:04:00 CDT, Duration: 30 day, Stop date: 10/24/15 19:03:00 CDT Inactive 09/25/2015 [facility] Phenergan 12.5 mg, Route: IVPB, ONCE, Dosing Weight 108.864, kg, Start date: 09/24/15 18:27:00 CDT, Stop date: 09/24/15 18:27:00 CDT Inactive 09/24/2015 [facility] Albumin Human, CHCF 50 MG/ML Injectable Solution 25 gm, 500 mL, 250 ml/hr, Route: IV, Drug Form: INJ, Dosing Weight 108.864, kg, ONCE, Start date: 09/24/15 18:03:00 CDT, Stop date: 09/24/15 18:03:00 CDTNotes: LOT#: Mfg: (Same as: Albuminar) "blood product derivative" WASTE: F/P - Red; E -Red MEDICATION WASTE Product Size: 25 gm Product Wasted: ___ gm Inactive 09/24/2015 [facility] Ancef 1 gm, 100 mL, Route: IVPB, Drug form: INJ, ABXQ6H, Dosing Weight 108.864, kg, Start date: 09/24/15 18:00:00 CDT, Duration: 1 day, Stop date: 09/25/15 14:00:00 CDT No Longer Active 09/24/2015 [facility] Zofran 4 mg, 2 mL, Route: IV, Drug form: INJ, Q6H, Dosing Weight 108.864, kg, PRN Nausea, Start date: 09/24/15 17:49:00 CDT, Duration: 30 day, Stop date: 10/24/15 17:48:00 CDTNotes: (Same as: Zofran) MEDICATION WASTE Product Size: 4 mg Product Wasted: ___ mg No Longer Active 09/24/2015 [facility] Morphine 30 mg, 30 mL, Route: IV, COMPLIANCE MONITOR Dose: 1 mg, COMPLIANCE MONITOR Lockout: 10 minutes, Continuous Basal Rate: 0 mg, 4 Hour Limit (In MG): 24, Drug Form: INJ, Continuous, Start date: 09/24/15 17:30:00 CDT, Duration: 30 day, Stop date: 10/24/15 17:29:00 CDTNotes: Dose: Delay: Basal rate: 4hr limit: (Same as:Greg) Inactive 09/24/2015 [facility] Naloxone 0.04 mg, 0.1 mL, Route: IVP, Drug form: INJ, Q2MIN, Dosing Weight 108.864, kg, PRN Narcotic Reversal, Start date: 09/24/15 17:04:00 CDT, Duration: 30 day, Stop date: 10/24/15 17:03:00 CDTNotes: Same as Narcan Inactive 09/24/2015 [facility] Lactated Ringers IV 1,000 mL 1,000 mL, Rate: 125 ml/hr, Infuse over: 8 hr, Route: IV, Dosing Weight 108.864 kg, Total Volume: 1,000, Start date: 09/24/15 17:01:00 CDT, Duration: 30 day, Stop date: 10/24/15 17:00:00 CDT Inactive 09/24/2015 [facility] Insulin regular 5 unit, Route: IVP, ONCE, Dosing Weight 108.864, kg, Start date: 09/24/15 16:43:00 CDT, Stop date: 09/24/15 16:43:00 CDT Inactive 09/24/2015 [facility] Albumin Human, CHCF 50 MG/ML Injectable Solution 25 gm, 500 mL, 250 ml/hr, Route: IV, Drug Form: INJ, Dosing Weight 108.864, kg, ONCE, Start date: 09/24/15 16:39:00 CDT, Stop date: 09/24/15 16:39:00 CDTNotes: LOT#: Mfg: (Same as: Albuminar) "blood product derivative" WASTE: F/P - Red; E -Red MEDICATION WASTE Product Size: 25 gm Product Wasted: ___ gm Inactive 09/24/2015 [facility] Ephedrine 50 mg, Route: IM, ONCE, Dosing Weight 108.864, kg, Start date: 09/24/15 16:24:00 CDT, Stop date: 09/24/15 16:24:00 CDT Inactive 09/24/2015 [facility] Norepinephrine 8 mg, 8 mL, Rate: Titrate, Start Dose: 5 microgram/min, Titration: 2 microgram/min every 2-5 minutes, Goal(s): MAP >=65 mmHg, Max Dose: 70 microgram/min, Route: IV, Dosing Weight 108.864 kg, Total Vo lume: 250, Start date: 09/24/15 16:00:00 CDT, Durat...Notes: Not for direct administration - DILUTE. Protect from light. (Same as:Levophed). Administer by either central venous catheter or peripherally-inserted central catheter (PICC) line. No Longer Active 09/24/2015 [facility] Hextend 500 ml, Route: IVPB, Dosing Weight 108.864, kg, ONCE, Start date: 09/24/15 15:31:00 CDT, Duration: 1 doses or times, Stop date: 09/24/15 15:31:00 CDT Inactive 09/24/2015 [facility] Promethazine 6.25 mg, Route: IVPB, ONCE, Dosing Weight 108.864, kg, PRN Nausea & Vomiting, Start date: 09/24/15 14:30:00 CDT Inactive 09/24/2015 [facility] Ondansetron 4 mg, Route: IVP, ONCE, Dosing Weight 108.864, kg, PRN Nausea & Vomiting, Start date: 09/24/15 14:30:00 CDT Inactive 09/24/2015 [facility] Albuterol 0.83 MG/ML Inhalant Solution 2.49 mg, Route: NEB, Q20Min, Dosing Weight 108.864, kg, PRN Wheezing, Priority: STAT, Start date: 09/24/15 14:30:00 CDT, Duration: 30 day, Stop date: 10/24/15 14:29:00 CDT Inactive 09/24/2015 [facility] Diphenhydramine 12.5 mg, Route: IVP, Drug form: INJ, Q6H, Dosing Weight 108.864, kg, PRN Itching, Start date: 09/24/15 14:30:00 CDT, Duration: 30 day, Stop date: 10/24/15 14:29:00 CDT Inactive 09/24/2015 [facility] Naloxone 0.04 mg, Route: IVP, Q2MIN, Dosing Weight 108.864, kg, PRN Narcotic Reversal, Start date: 09/24/15 14:30:00 CDT, Duration: 8 doses or times, Stop date: Limited # of times Inactive 09/24/2015 [facility] Fentanyl 25 microgram, Route: IVP, Q5Min, Dosing Weight 108.864, kg, PRN Pain Score 4-6, Start date: 09/24/15 14:30:00 CDT, Duration: 4 doses or times, Stop date: Limited # of times Inactive 09/24/2015 [facility] Hydromorphone 0.5 mg, Route: IVP, Q5Min, Dosing Weight 108.864, kg, PRN Pain Score 7-10, Start date: 09/24/15 14:30:00 CDT, Duration: 4 doses or times, Stop date: Limited # of times Inactive 09/24/2015 [facility] Meperidine 12.5 mg, Route: IVP, Q30Min, Dosing Weight 108.864, kg, PRN Other -See Comment, For shivering, Start date: 09/24/15 14:30:00 CDT, Duration: 2 doses or times, Stop date: Limited # of times Inactive 09/24/2015 [facility] Flumazenil 0.2 mg, Route: IVP, PRN, Dosing Weight 108.864, kg, PRN Benzodiazepine Reversal, Initial dose, Start date: 09/24/15 14:30:00 CDT, Duration: 30 day, Stop date: 10/24/15 14:29:00 CDT Inactive 09/24/2015 [facility] Oxycodone 10 mg, Route: PO, Drug form: TAB, Q4H, Dosing Weight 108.864, kg, PRN Pain Score 7-10, Start date: 09/24/15 14:30:00 CDT, Duration: 30 day, Stop date: 10/24/15 14:29:00 CDT Inactive 09/24/2015 [facility] Sodium Chloride 0.154 MEQ/ML Injectable Solution 500 mL, Rate: 125 ml/hr, Infuse over: 4 hr, Route: IV, Dosing Weight 108.864 kg, Total Volume: 500, Start date: 09/24/15 14:30:00 CDT, Duration: 30 day, Stop date: 10/24/15 14:29:00 CDT Inactive 09/24/2015 [facility] Glucose 50 MG/ML / Sodium Chloride 0.154 MEQ/ML Injectable Solution 1,000 mL, Rate: 125 ml/hr, Infuse over: 8 hr, Route: IV, Dosing Weight 108.864 kg, Total Volume: 1,000, Start date: 09/24/15 14:30:00 CDT, Duration: 30 day, Stop date: 10/24/15 14:29:00 CDT Inactive 09/24/2015 [facility] ondansetron (ANES) Route: IV, Drug form: INJ, ONCE, Stop date: 09/24/15 13:24:00 CDT Inactive 09/24/2015 [facility] acetaminophen (ANES) Route: IV, Drug form: INJ, ONCE, Stop date: 09/24/15 13:22:00 CDT Inactive 09/24/2015 [facility] cefOXitin (ANES) Route: IV, Drug form: INJ, ONCE, Stop date: 09/24/15 10:43:00 CDT Inactive 09/24/2015 [facility] propofol (ANES) Route: IV, Drug form: INJ, ONCE, Stop date: 09/24/15 10:43:00 CDT Inactive 09/24/2015 [facility] rocuronium (ANES) Route: IV, Drug form: INJ, ONCE, Stop date: 09/24/15 10:43:00 CDT Inactive 09/24/2015 [facility] fentaNYL (ANES) Route: IV, Drug form: INJ, ONCE, Stop date: 09/24/15 10:38:00 CDT Inactive 09/24/2015 [facility] midazolam (ANES) Route: IV, Drug form: SOLN, ONCE, Stop date: 09/24/15 10:38:00 CDT Inactive 09/24/2015 [facility] Hextend (ANES) (ANES) Route: IV, Drug Form: INJ, Start date: 09/24/15 10:15:00 CDT, Stop date: 09/24/15 11:15:00 CDT Inactive 09/24/2015 [facility] Sodium Chloride 0.9% IV (ANES) (ANES) Route: IV, Total Volume: 1,000, Start date: 09/24/15 9:50:00 CDT, Stop date: 09/24/15 10:50:00 CDT Inactive 09/24/2015 [facility] Lactated Ringers Injection IV (ANES) (ANES) Route: IV, Total Volume: 1,000, Start date: 09/24/15 9:35:00 CDT, Stop date: 09/24/15 10:35:00 CDT Inactive 09/24/2015 [facility] heparin sodium, porcine 2500 UNT/ML Injectable Solution 5,000 unit, Route: SUB-Q, Drug form: INJ, ONCALL, Dosing Weight 108.864, kg, Start date: 09/24/15 8:00:00 CDT, Duration: 30 day, Stop date: 10/24/15 7:59:00 CDT Inactive 09/24/2015 [facility] Calcium Chloride 0.0014 MEQ/ML / Potassium Chloride 0.004 MEQ/ML / Sodium Chloride 0.103 MEQ/ML / Sodium Lactate 0.028 MEQ/ML Injectable Solution 1,000 mL, Rate: 25 ml/hr, Infuse over: 40 hr, Route: IV, Dosing Weight 108.864 kg, Total Volume: 1,000, Start date: 09/24/15 7:54:00 CDT, Duration: 30 day, Stop date: 10/24/15 7:53:00 CDT Inactive 09/24/2015 [facility] Glucose 50 MG/ML / Sodium Chloride 0.154 MEQ/ML Injectable Solution 1,000 mL, Rate: 25 ml/hr, Infuse over: 40 hr, Route: IV, Dosing Weight 108.864 kg, Total Volume: 1,000, Start date: 09/24/15 7:54:00 CDT, Duration: 30 day, Stop date: 10/24/15 7:53:00 CDT Inactive 09/24/2015 [facility] Sodium Chloride 0.154 MEQ/ML Injectable Solution 500 mL, Rate: 125 ml/hr, Infuse over: 4 hr, Route: IV, Dosing Weight 108.864 kg, Total Volume: 500, Start date: 09/24/15 7:54:00 CDT, Duration: 30 day, Stop date: 10/24/15 7:53:00 CDT Inactive 09/24/2015 [facility] Normosol-R 1,000 mL, Rate: 25 ml/hr, Infuse over: 40 hr, Route: IV, Dosing Weight 108.864 kg, Total Volume: 1,000, Start date: 09/24/15 7:54:00 CDT, Duration: 30 day, Stop date: 10/24/15 7:53:00 CDT Inactive 09/24/2015 [facility] Unknown Home Medication Refill(s) 0 Active 09/22/2015 [facility] Unknown Home Medication Refill(s) 0 Active 09/22/2015 [facility] Aspirin Low Dose 81 mg oral tablet =1 tab, PO, Daily, # 100 tab, 3 Refill(s) Active 09/22/2015 [facility] omeprazole 40 mg oral delayed release capsule 40 mg=1 cap, PO, Daily, PRN, # 30 cap, 0 Refill(s) Active 09/22/2015 [facility] Alprazolam 0.25 MG Oral Tablet 0.25 mg=1 tab, PO, BID, PRN anxiety, stress, # 20 tab, 0 Refill(s) Active 09/22/2015 [facility] Doxepin Hydrochloride 25 MG Oral Capsule 25 mg=1 cap, PO, Daily, # 90 cap, 0 Refill(s) Active 09/22/2015 [facility] gabapentin 300 MG Oral Capsule 300 mg=1 cap, PO, Daily, # 90 cap, 0 Refill(s) Active 09/22/2015 [facility] lisinopril 5 mg oral tablet 5 mg=1 tab, PO, Daily, # 30 tab, 0 Refill(s) Active 09/22/2015 [facility] canagliflozin 100 MG Oral Tablet [Invokana] 100 mg=1 tab, PO, Before Breakfast, # 30 tab, 0 Refill(s) Active 09/22/2015 [facility] Crestor 1 tablet Orally Active 5 MG Orally Once a day Neal De Jesus MD, [place] Crestor 1 tablet Orally Active 5 MG Orally Once a day Neal De Jesus MD, [place] Alprazolam 1 tablet Orally Active 0.5 MG Orally Neal De Jesus MD, RONAL Metformin HCl 1 tablet with meals Orally Active 1000 mg Orally daily Neal De Jesus MD, RONAL Lisinopril 1 tablet Orally Active 5 MG Orally Once a day Neal De Jesus MD, RONAL Invokana 1 tablet Orally Active 100 MG Orally Once a day Neal De Jesus MD, RONAL Doxepin HCl 1 capsule at bedtime Orally Active 25 MG Orally Once a day Neal De Jesus MD, RONAL Farxiga 1 tablet Orally Active 5 MG Orally Once a day Neal De Jesus MD, RONAL Tramadol HCl 1/2 half tablet Orally Active 50 mg Orally Neal De Jesus MD, RONAL Celebrex 1 capsule with food Orally Active 200 MG Orally Once a day Neal De Jesus MD, [place] Doxepin HCl 1 capsule at bedtime Orally Active 25 MG Orally Once a day Neal De Jesus MD, [place] Lisinopril 1 tablet Orally Active 5 MG Orally Once a day Neal De Jesus MD, [place] Tramadol HCl 1/2 half tablet Orally Active 50 mg Orally Neal De Jesus MD, RONAL Farxiga 1 tablet Orally Active 5 MG Orally Once a day Neal De Jesus MD, RONAL Alprazolam 1 tablet Orally Active 0.5 MG Orally Neal De Jesus MD, [place] Metformin HCl 1 tablet with meals Orally Active 1000 mg Orally daily Neal De Jesus MD, [place] Lyrica 1 capsule Orally Active 50 MG Orally Three times a day Neal De Jesus MD, RONAL Cymbalta 1 capsule Orally Active 30 MG Orally Twice a day Neal De Jesus MD, RONAL Allergies, Adverse Reactions, Alerts Substance Category Reaction Severity Reaction type Status Date Reported Comments Source sulfa Adverse Reaction Info Not Available Adverse Reaction Active 01/31/2018 Barron De Jesus MD, RONAL sulfa drugs Assertion Drug allergy Active [facility] Surgical Tape Assertion Drug allergy Active [facility] Immunizations Immunization Date Given Site Status Last Updated Comments Source pneumococcal 23-valent vaccine 07/21/2017 Left Deltoid completed [facility] Results Order Name Results Value Reference Range Date Interpretation Comments Source Chest wo contrast CT Chest wo contrast CT Clinical Indication: - C34.90 Malignant neoplasm of unspecified part of unspecified bronchus or lung; lung cancer. Comparison: CT chest 08/29/2017 TECHNIQUE: Sequential trans-axial images were obtained through the chest and upper abdomen without administration of iodinated contrast. Axial, coronal and sagittal reconstructions were obtained. Contrast: No contrast material intravenous. CT imaging performed at this location utilizes radiation dose optimization techniques which include one or more of the following: -Automated exposure control -Adjustment of the mA and/or kV according to patient size -Use of iterative reconstruction technique CT Radiation Dose DLP 527 mGy-cm FINDINGS: CHEST: VASCULATURE: Thoracic aorta is normal. The central pulmonary arteries, great vessels and superior vena cava are unremarkable. HEART: The heart is normal in size. No pericardial effusion. LYMPH NODES: Small mediastinal lymph nodes are similar to prior exam. The largest is a right paratracheal node which measures 1.4 cm short axis preserved fatty hilum. Evaluation of hilar lymphadenopathy is limited without contrast. No axillary lymphadenopathy. LUNGS: There are mild paraseptal emphysematous changes. There are postsurgical changes in the right hemithorax and right middle lobectomy bandlike density extending from the postsurgical changes at the right hilum is unchanged from prior CT exam.. No pleural effusions. No pneumothorax. The central airway is normal. MUSCULOSKELETAL: There are no significant osseous abnormalities seen. UPPER ABDOMEN: The liver is hypodense. IMPRESSION: 1. No significant change from prior exam. Postsurgical changes of right thoracotomy and right middle lobe resection with bandlike probable scarring extending from the right hilum. Evaluating for residual viable disease in this region is limited on a noncontrast CT exam. PET/CT may be more sensitive. 2. Mild emphysematous change 3. Similar appearance of small mediastinal lymph nodes 4. Steatotic liver SL: [id number] 12/30/2017 - - Read by: Latonya Live MD Dictated Date/time: 12/31/17 18:39 Electronically Signed by: Latonya Live MD 12/31/17 18:52 FINAL REPORT [facility] wo contrast CT Chest wo contrast CT EXAM: CT chest HISTORY: Malignant neoplasm of the lung, COPD with exacerbation COMPARISON: CT 07/20/2017 TECHNIQUE: Axial images of the chest with sagittal and coronal reformats. No contrast. DLP:[id number] FINDINGS: LUNGS: Stable right middle lobectomy. Near-complete resolution of previous groundglass opacities in both lungs. Paraseptal emphysema. MEDIASTINUM: Decreased size of a few small lymph nodes. Mild coronary artery calcifications. PLEURA: No effusion. UPPER ABDOMEN: Fatty liver with possible cirrhotic change. BONES: Moderate spondylosis thoracolumbar spine. Generalized osteopenia. IMPRESSION: 1. Significantly improved groundglass opacities in both lungs may reflect resolving pneumonia or pneumonitis. 2. No recurrent malignancy is seen. PET/CT can further evaluate if clinically indicated. 3. Emphysema. 4. Coronary artery calcifications. 5. Fatty liver with possible cirrhosis. SL: [id number] 08/29/2017 - - Read by: Jarrell Bee MD Dictated Date/time: 08/29/17 14:47 Electronically Signed by: Jarrell Bee MD 08/29/17 15:03 FINAL REPORT [facility] ELECTROLYTES AGAP 12.1 meq/L 10.0 - 20.0 07/26/2017 [facility] ELECTROLYTES eGFR 90 mL/min/1.73m2 07/26/2017 Result Comment: The eGFR is calculated using the CKD-EPI formula. In most young, healthy individuals the eGFR will be >90 mL/min/1.73m2. The eGFR declines with age. An eGFR of 60-89 may be normal in some populations, particularly the elderly, for whom the CKD-EPI formula has not been extensively validated. Use of the eGFR is not recommended in the following populations: Individuals with unstable creatinine concentrations, including patients and those with serious co-morbid conditions. Patients with extremes in muscle mass or diet. The data above are obtained from the National Kidney Disease Education Program (NKDEP) which additionally recommends that when the eGFR is used in patients with extremes of body mass index for purposes of drug dosing, the eGFR should be multiplied by the estimated BMI. [facility] ELECTROLYTES Calcium Lvl 8.0 mg/dL 8.5 - 10.5 07/26/2017 [facility] ELECTROLYTES CO2 29 meq/L 24 - 32 07/26/2017 [facility] ELECTROLYTES Chloride Lvl 101 meq/L 95 - 109 07/26/2017 [facility] ELECTROLYTES Potassium Lvl 4.1 meq/L 3.5 - 5.1 07/26/2017 [facility] ELECTROLYTES BUN 28 mg/dL 7 - 22 07/26/2017 [facility] ELECTROLYTES Creatinine Lvl 0.73 mg/dL 0.50 - 1.40 07/26/2017 [facility] ELECTROLYTES Glucose Lvl 106 mg/dL 70 - 99 07/26/2017 [facility] ELECTROLYTES Sodium Lvl 138 meq/L 135 - 145 07/26/2017 [facility] HEMATOLOGY Segs 73.5 % 45.0 - 75.0 07/26/2017 [facility] Monocytes 10.0 % 2.0 - 12.0 07/26/2017 [facility] Lymphocytes 16.2 % 20.0 - 40.0 07/26/2017 [facility] HEMATOLOGY Eosinophils 0.2 % 0.0 - 4.0 07/26/2017 [facility] Segs-Bands # 6.1 K/CMM 1.5 - 8.1 07/26/2017 [facility] Basophils 0.1 % 0.0 - 1.0 07/26/2017 [facility] Monocytes # 0.8 K/CMM 0.0 - 0.8 07/26/2017 [facility] Lymphocytes # 1.3 K/CMM 1.0 - 5.5 07/26/2017 [facility] WBC 8.2 K/CMM 3.7 - 10.4 07/26/2017 [facility] Hgb 14.1 g/dL 12.0 - 16.0 07/26/2017 [facility] RBC 5.22 M/CMM 4.20 - 5.40 07/26/2017 [facility] Hct 43.3 % 36.0 - 48.0 07/26/2017 [facility] MCV 82.9 fL 80.0 - 98.0 07/26/2017 [facility] MCHC 32.7 g/dL 32.0 - 36.0 07/26/2017 [facility] MCH 27.1 pg 27.0 - 31.0 07/26/2017 [facility] Platelet 198 K/CMM 133 - 450 07/26/2017 [facility] RDW 15.1 % 11.5 - 14.5 07/26/2017 [facility] MPV 9.1 fL 7.4 - 10.4 07/26/2017 [facility] Chest 2 views DX Chest 2 views DX Chest 2 views DX CLINICAL HISTORY: Pneumonia - CXR PA and LAT COMPARISON: 07/20/2017 FINDINGS: SUPPORT DEVICES: none LUNGS: Lungs are reasonably well inflated. Right mid to lower lung zone opacity persists without significant change. Surgical clips project in this region. No pneumothorax is evident. Vascular congestion has resolved in the interim. CARDIOVASCULAR: Cardiac silhouette size is normal. Pulmonary vasculature is within normal limits. MEDIASTINUM/RAVINDRA: Trachea is midline. No contour abnormality is noted. OSSEOUS STRUCTURES: No acute bony abnormality is noted. SOFT TISSUES: No significant soft tissue abnormality is noted. IMPRESSION: Interval resolution of vascular congestion. Right mid to lower lung zone opacity, unchanged. SL: [id number] 07/24/2017 - - Read by: Juan Antonio Plaza MD Dictated Date/time: 07/24/17 14:37 Electronically Signed by: Juan Antonio Plaza MD 07/24/17 14:39 FINAL REPORT [facility] CARDIAC ENZYMES BNP 40 pg/mL <=100 pg/mL 07/23/2017 [facility] CHEM PANEL eGFR 97 mL/min/1.73m2 07/23/2017 Result Comment: The eGFR is calculated using the CKD-EPI formula. In most young, healthy individuals the eGFR will be >90 mL/min/1.73m2. The eGFR declines with age. An eGFR of 60-89 may be normal in some populations, particularly the elderly, for whom the CKD-EPI formula has not been extensively validated. Use of the eGFR is not recommended in the following populations: Individuals with unstable creatinine concentrations, including patients and those with serious co-morbid conditions. Patients with extremes in muscle mass or diet. The data above are obtained from the National Kidney Disease Education Program (NKDEP) which additionally recommends that when the eGFR is used in patients with extremes of body mass index for purposes of drug dosing, the eGFR should be multiplied by the estimated BMI. [facility] CHEM PANEL A/G Ratio 0.7 0.7 - 1.6 07/23/2017 [facility] CHEM PANEL AGAP 15.4 meq/L 10.0 - 20.0 07/23/2017 [facility] CHEM PANEL BUN 18 mg/dL 7 - 22 07/23/2017 [facility] CHEM PANEL Alk Phos 87 unit/L 39 - 136 07/23/2017 [facility] CHEM PANEL Bili Total 0.5 mg/dL 0.2 - 1.3 07/23/2017 [facility] CHEM PANEL Calcium Lvl 8.9 mg/dL 8.5 - 10.5 07/23/2017 [facility] CHEM PANEL CO2 23 meq/L 24 - 32 07/23/2017 [facility] CHEM PANEL Glucose Lvl 219 mg/dL 70 - 99 07/23/2017 [facility] CHEM PANEL ALT 28 unit/L 0 - 65 07/23/2017 [facility] CHEM PANEL AST 24 unit/L 0 - 37 07/23/2017 [facility] CHEM PANEL Total Protein 8.1 g/dL 6.4 - 8.4 07/23/2017 [facility] CHEM PANEL Globulin 4.8 g/dL 2.7 - 4.2 07/23/2017 [facility] CHEM PANEL Albumin Lvl 3.3 g/dL 3.5 - 5.0 07/23/2017 [facility] CHEM PANEL B/C Ratio 27 6 - 25 07/23/2017 [facility] CHEM PANEL Creatinine Lvl 0.66 mg/dL 0.50 - 1.40 07/23/2017 [facility] CHEM PANEL Sodium Lvl 137 meq/L 135 - 145 07/23/2017 [facility] CHEM PANEL Potassium Lvl 4.4 meq/L 3.5 - 5.1 07/23/2017 [facility] CHEM PANEL Chloride Lvl 103 meq/L 95 - 109 07/23/2017 [facility] HEMATOLOGY Sed Rate 25 mm/h 0 - 20 07/22/2017 [facility] IMMUNOLOGY C-REACTIVE PROTEIN 18.3 mg/L <=2.9 mg/L 07/22/2017 [facility] IMMUNOLOGY SIMONE Negative (07/22/17 8:42 AM) Negative 07/22/2017 [facility] CHEM PANEL A/G Ratio 0.7 0.7 - 1.6 07/21/2017 [facility] CHEM PANEL AGAP 13.1 meq/L 10.0 - 20.0 07/21/2017 [facility] CHEM PANEL B/C Ratio 17 6 - 25 07/21/2017 [facility] CHEM PANEL Globulin 4.5 g/dL 2.7 - 4.2 07/21/2017 [facility] CHEM PANEL eGFR 93 mL/min/1.73m2 07/21/2017 Result Comment: The eGFR is calculated using the CKD-EPI formula. In most young, healthy individuals the eGFR will be >90 mL/min/1.73m2. The eGFR declines with age. An eGFR of 60-89 may be normal in some populations, particularly the elderly, for whom the CKD-EPI formula has not been extensively validated. Use of the eGFR is not recommended in the following populations: Individuals with unstable creatinine concentrations, including patients and those with serious co-morbid conditions. Patients with extremes in muscle mass or diet. The data above are obtained from the National Kidney Disease Education Program (NKDEP) which additionally recommends that when the eGFR is used in patients with extremes of body mass index for purposes of drug dosing, the eGFR should be multiplied by the estimated BMI. [facility] CHEM PANEL Sodium Lvl 138 meq/L 135 - 145 07/21/2017 [facility] CHEM PANEL Creatinine Lvl 0.71 mg/dL 0.50 - 1.40 07/21/2017 [facility] CHEM PANEL Glucose Lvl 116 mg/dL 70 - 99 07/21/2017 [facility] CHEM PANEL BUN 12 mg/dL 7 - 22 07/21/2017 [facility] CHEM PANEL Potassium Lvl 5.1 meq/L 3.5 - 5.1 07/21/2017 [facility] CHEM PANEL Calcium Lvl 8.7 mg/dL 8.5 - 10.5 07/21/2017 [facility] CHEM PANEL Chloride Lvl 102 meq/L 95 - 109 07/21/2017 [facility] CHEM PANEL CO2 28 meq/L 24 - 32 07/21/2017 [facility] CHEM PANEL AST 33 unit/L 0 - 37 07/21/2017 [facility] CHEM PANEL Total Protein 7.6 g/dL 6.4 - 8.4 07/21/2017 [facility] CHEM PANEL Albumin Lvl 3.1 g/dL 3.5 - 5.0 07/21/2017 [facility] CHEM PANEL ALT 27 unit/L 0 - 65 07/21/2017 [facility] CHEM PANEL Alk Phos 82 unit/L 39 - 136 07/21/2017 [facility] CHEM PANEL Bili Total 0.8 mg/dL 0.2 - 1.3 07/21/2017 [facility] MCH 26.9 pg 27.0 - 31.0 07/21/2017 [facility] MCHC 32.6 g/dL 32.0 - 36.0 07/21/2017 [facility] HEMATOLOGY RDW 15.2 % 11.5 - 14.5 07/21/2017 [facility] RBC 5.04 M/CMM 4.20 - 5.40 07/21/2017 [facility] Hgb 13.6 g/dL 12.0 - 16.0 07/21/2017 [facility] MCV 82.8 fL 80.0 - 98.0 07/21/2017 [facility] Hct 41.7 % 36.0 - 48.0 07/21/2017 [facility] HEMATOLOGY WBC 6.3 K/CMM 3.7 - 10.4 07/21/2017 [facility] HEMATOLOGY MPV 8.7 fL 7.4 - 10.4 07/21/2017 [facility] HEMATOLOGY Platelet 183 K/CMM 133 - 450 07/21/2017 [facility] HEMATOLOGY Lymphocytes # 0.8 K/CMM 1.0 - 5.5 07/21/2017 [facility] HEMATOLOGY Eosinophils # 0.3 K/CMM 0.0 - 0.5 07/21/2017 [facility] HEMATOLOGY Monocytes # 0.4 K/CMM 0.0 - 0.8 07/21/2017 [facility] HEMATOLOGY Basophils # 0.1 K/CMM 0.0 - 0.2 07/21/2017 [facility] HEMATOLOGY Monocytes 7.0 % 2.0 - 12.0 07/21/2017 [facility] HEMATOLOGY Basophils 0.9 % 0.0 - 1.0 07/21/2017 [facility] HEMATOLOGY Eosinophils 5.3 % 0.0 - 4.0 07/21/2017 [facility] HEMATOLOGY Segs-Bands # 4.7 K/CMM 1.5 - 8.1 07/21/2017 [facility] HEMATOLOGY Segs 74.4 % 45.0 - 75.0 07/21/2017 [facility] HEMATOLOGY Lymphocytes 12.4 % 20.0 - 40.0 07/21/2017 [facility] SPECIAL CHEMISTRY Hgb A1C 6.7 % <=5.6 % 07/21/2017 [facility] VIRAL - SEROLOGY Influ B Negative (07/20/17 9:10 PM) Negative 07/21/2017 [facility] VIRAL - SEROLOGY Influ A Negative (07/20/17 9:10 PM) Negative 07/21/2017 [facility] CHEM PANEL Procalcitonin Lvl <0.05 ng/mL 0.00 - 0.10 07/20/2017 [facility] CHEM PANEL Alk Phos 89 unit/L 39 - 136 07/20/2017 [facility] CHEM PANEL ALT 24 unit/L 0 - 65 07/20/2017 [facility] CHEM PANEL AST 35 unit/L 0 - 37 07/20/2017 [facility] CHEM PANEL Albumin Lvl 3.5 g/dL 3.5 - 5.0 07/20/2017 [facility] CHEM PANEL Total Protein 7.9 g/dL 6.4 - 8.4 07/20/2017 [facility] CHEM PANEL B/C Ratio 21 6 - 25 07/20/2017 [facility] CHEM PANEL Globulin 4.4 g/dL 2.7 - 4.2 07/20/2017 [facility] CHEM PANEL Bili Total 1.0 mg/dL 0.2 - 1.3 07/20/2017 [facility] CHEM PANEL A/G Ratio 0.8 0.7 - 1.6 07/20/2017 [facility] CHEM PANEL Lactic Acid Lvl 1.3 mMol/L 0.5 - 2.2 07/20/2017 [facility] URINE AND STOOL UA RBC 4 /HPF 0 - 2 07/20/2017 [facility] URINE AND STOOL UA Bacteria Occasional /HPF None Seen /HPF 07/20/2017 [facility] URINE AND STOOL UA WBC 29 /HPF 0 - 5 07/20/2017 [facility] URINE AND STOOL UA Sq Epi Occasional /LPF Few /LPF 07/20/2017 [facility] URINE AND STOOL UA Mucus Few /LPF None Seen /LPF 07/20/2017 [facility] URINE AND STOOL UA Spec Grav >=1.050 *ABN* (07/20/17 3:24 PM) <=1.030 07/20/2017 [facility] URINE AND STOOL UA Urobilinogen <=1.0 mg/dL 0.1 - 1.0 07/20/2017 [facility] URINE AND STOOL UA Leuk Est Small *ABN* (07/20/17 3:24 PM) Negative 07/20/2017 [facility] URINE AND STOOL UA Ketones Negative mg/dL Negative mg/dL 07/20/2017 [facility] URINE AND STOOL UA Blood Negative (07/20/17 3:24 PM) Negative 07/20/2017 [facility] URINE AND STOOL UA Bili Negative *NA* (07/20/17 3:24 PM) Negative 07/20/2017 [facility] URINE AND STOOL UA Nitrite Negative (07/20/17 3:24 PM) Negative 07/20/2017 [facility] URINE AND STOOL UA pH 5.0 5.0 - 8.0 07/20/2017 [facility] URINE AND STOOL UA Turbidity Slight *ABN* (07/20/17 3:24 PM) Clear 07/20/2017 [facility] URINE AND STOOL UA Protein Negative mg/dL Negative mg/dL 07/20/2017 [facility] URINE AND STOOL UA Glucose Negative mg/dL Negative mg/dL 07/20/2017 [facility] URINE AND STOOL UA Color Yellow *NA* (07/20/17 3:24 PM) Yellow 07/20/2017 [facility] CARDIAC ENZYMES CK MB Index 2.0 0.0 - 2.5 07/20/2017 [facility] CARDIAC ENZYMES BNP 12 pg/mL <=100 pg/mL 07/20/2017 [facility] CARDIAC ENZYMES Troponin-I null 0.00 - 0.40 07/20/2017 [facility] CARDIAC ENZYMES CK MB 1.8 ng/mL 0.5 - 3.6 07/20/2017 [facility] CARDIAC ENZYMES Total CK 91 unit/L 12 - 191 07/20/2017 [facility] CHEM PANEL Magnesium Lvl 1.7 mg/dL 1.8 - 2.4 07/20/2017 [facility] CHEM PANEL Lactic Acid Lvl 2.2 mMol/L 0.5 - 2.2 07/20/2017 [facility] HEMATOLOGY Basophils 1.0 % 0.0 - 1.0 07/20/2017 [facility] HEMATOLOGY Segs-Bands # 5.8 K/CMM 1.5 - 8.1 07/20/2017 [facility] HEMATOLOGY Lymphocytes # 1.1 K/CMM 1.0 - 5.5 07/20/2017 [facility] HEMATOLOGY Basophils # 0.1 K/CMM 0.0 - 0.2 07/20/2017 [facility] HEMATOLOGY Monocytes # 0.5 K/CMM 0.0 - 0.8 07/20/2017 [facility] HEMATOLOGY Eosinophils # 0.3 K/CMM 0.0 - 0.5 07/20/2017 [facility] HEMATOLOGY Segs 74.1 % 45.0 - 75.0 07/20/2017 [facility] HEMATOLOGY Eosinophils 4.4 % 0.0 - 4.0 07/20/2017 [facility] HEMATOLOGY Lymphocytes 13.7 % 20.0 - 40.0 07/20/2017 [facility] HEMATOLOGY Monocytes 6.8 % 2.0 - 12.0 07/20/2017 [facility] HEMATOLOGY PT 13.7 s 12.0 - 14.7 07/20/2017 [facility] HEMATOLOGY INR 1.05 0.85 - 1.17 07/20/2017 [facility] HEMATOLOGY WBC 7.8 K/CMM 3.7 - 10.4 07/20/2017 [facility] RBC 5.36 M/CMM 4.20 - 5.40 07/20/2017 [facility] MPV 9.2 fL 7.4 - 10.4 07/20/2017 [facility] Platelet 215 K/CMM 133 - 450 07/20/2017 [facility] Hct 45.0 % 36.0 - 48.0 07/20/2017 [facility] Hgb 14.7 g/dL 12.0 - 16.0 07/20/2017 [facility] MCHC 32.7 g/dL 32.0 - 36.0 07/20/2017 [facility] MCV 84.0 fL 80.0 - 98.0 07/20/2017 [facility] MCH 27.5 pg 27.0 - 31.0 07/20/2017 [facility] RDW 15.0 % 11.5 - 14.5 07/20/2017 [facility] CHEM PANEL POC Creatinine 0.7 mg/dL 0.5 - 1.4 07/20/2017 [facility] Chest Pulmonary Embolism CTA Chest Pulmonary Embolism CTA Clinical Indication: Shortness of breath for 2 months; Comparison: 09/27/2015 TECHNIQUE: Sequential trans-axial images were obtained thru the chest and upper abdomen after administration of iodinated contrast. CTA protocol was performed with 3-D postprocessing reconstruction MIPs and volume rendering. Coronal and sagittal reconstructions were obtained. 100 cc of nonionic contrast material was used for the exam. Dose: IQV=596.42 mGy-cm FINDINGS: LUNG PARENCHYMA AND PLEURA: There are no lung nodules. There is no significant interstitial lung disease. There is middle lobe infiltrate. Bilateral air trapping is identified. There is no pneumothorax. AIRWAY: The central airway is normal. . MEDIASTINUM: There is small lymph node identified within the prevascular space measuring approximately 1.9 x 1.2 cm. HEART: There is no evidence of RV strain. The cardiac chambers are otherwise unremarkable. There is no pericardial effusion. VASCULAR STRUCTURES: There are no segmental pulmonary emboli noted. The main, right and left pulmonary arteries are normal. The great vessels are unremarkable. The thoracic aorta is is free of aneurysm or dissection.. The superior vena cava is unremarkable. OSSEOUS STRUCTURES: There are no definite significant osseous abnormalities seen. VISUALIZED UPPER ABDOMEN: The visualized upper abdomen demonstrates decreased attenuation of the liver. IMPRESSION: 1. No evidence of pulmonary emboli. 2. Middle lobe infiltrate. 3. Nonspecific bilateral air trapping. 4. Hepatic steatosis. SL: [id number] 07/20/2017 - - Read by: David Garnett MD Dictated Date/time: 07/20/17 13:56 Electronically Signed by: David Garnett MD 07/20/17 13:59 FINAL REPORT [facility] Chest 1view DX Chest 1view DX Clinical Indication: - sob; Comparison: 10/07/2015 FINDINGS: AP chest radiographs shows normal lung volumes with mild right lower lobe airspace disease. There is no effusion or pneumothorax. The heart is mildly enlarged and there is moderate pulmonary vascular congestion which has worsened when compared to previous exam. The trachea is midline. There are no clinically significant osseous abnormalities noted. IMPRESSION: 1. Cardiomegaly with pulmonary vascular congestion suggestive of volume overload versus congestive heart failure. 2. Mild right lower lobe atelectasis versus infiltrate SL: [id number] 07/20/2017 - - Read by: David Garnett MD Dictated Date/time: 07/20/17 13:26 Electronically Signed by: David Garnett MD 07/20/17 13:27 FINAL REPORT [facility] Breast Mammo Scrn SHUKRI incl CAD MA Breast Mammo Scrn SHUKRI incl CAD MA BILATERAL DIGITAL SCREENING MAMMOGRAM WITH CAD: 03/16/2017 CLINICAL: Routine/Screening. Current study was evaluated with a Computer Aided Detection (CAD) system. COMPARISON:Comparison is made to exams dated: 03/28/2016 mammogram, 03/20/2015 mammogram, 01/27/2014 mammogram, 01/25/2013 mammogram, 11/11/2011 mammogram, and 10/29/2010 mammogram - [facility]. TECHNIQUE: Mammographic views were obtained using digital acquisition. Current study was also evaluated with a Computer Aided Detection (CAD) system. The tissue of both breasts is almost entirely fat. FINDINGS: Multiple small bilateral oval masses are stable. There are benign calcifications in both breasts. No significant masses, calcifications, or other findings are seen in either breast. There has been no significant interval change. IMPRESSION: BENIGN RECOMMENDATION:There is no mammographic evidence of malignancy. A 1 year screening mammogram is recommended.(03/17/2018) This exam was interpreted at [id number] for DOMONIQUE Londono. King Rocha M.D., cm/penrad:03/16/2017 15:10:32 Diamond Setter Apprentice(s): RT Carlos(R)(M), [facility] letter sent: BI-RADS 1/2 Mammogram BI-RADS: 2 Benign 03/16/2017 - - Read by: Nishant Webster MD Dictated Date/time: 03/16/17 15:10 Electronically Signed by: Nishant Webster MD 03/16/17 15:10 FINAL REPORT [facility] Londono URINE AND STOOL UA Leuk Est Negative (09/07/16 8:14 AM) Negative 09/07/2016 [facility] URINE AND STOOL UA Sq Epi Occasional /LPF Few /LPF 09/07/2016 [facility] URINE AND STOOL UA Bacteria Few /HPF None Seen /HPF 09/07/2016 [facility] URINE AND STOOL UA Ketones Negative *NA* (09/07/16 8:14 AM) Negative 09/07/2016 [facility] URINE AND STOOL UA Bili Negative *NA* (09/07/16 8:14 AM) Negative 09/07/2016 [facility] URINE AND STOOL UA Blood Negative (09/07/16 8:14 AM) Negative 09/07/2016 [facility] URINE AND STOOL UA Nitrite Positive *ABN* (09/07/16 8:14 AM) Negative 09/07/2016 [facility] URINE AND STOOL UA Urobilinogen 0.2 EU/dL 0.1 - 1.0 09/07/2016 [facility] URINE AND STOOL UA Spec Grav 1.020 <=1.030 09/07/2016 [facility] URINE AND STOOL UA pH 5.5 5.0 - 8.0 09/07/2016 [facility] URINE AND STOOL UA Turbidity Slight Cloudy (09/07/16 8:14 AM) Clear 09/07/2016 [facility] URINE AND STOOL UA Glucose >=1000 mg/dL Negative mg/dL 09/07/2016 [facility] URINE AND STOOL UA Protein Negative (09/07/16 8:14 AM) Negative 09/07/2016 [facility] URINE AND STOOL UA Color Yellow *NA* (09/07/16 8:14 AM) Yellow 09/07/2016 [facility] Spine lumbar 2 or 3 views DX Spine lumbar 2 or 3 views DX Patient Name: COLLEEN REDDY : 1955; Age: 61 years y/o Female MR: [id number] * LUMBAR SPINE, 3 views HISTORY: Low back pain TECHNIQUE: Frontal and lateral radiographs of the lumbar spine and a coned-down lateral view of the lumbosacral junction were obtained. FINDINGS: There is normal alignment and lordosis of the lumbar spine The vertebral bodies are normal in height. There are no compression deformities or destructive lesions. There is no evidence of fracture or acute change. The there is minimal scattered degenerative spurring throughout the lumbar spine. However, the disc spaces are well-maintained. There are no significant degenerative changes. IMPRESSION: 1. Minimal scattered degenerative spurring. Otherwise, negative lumbar spine. SL: [id number] 09/07/2016 - - Read by: Faustino Blackwood MD Dictated Date/time: 09/07/16 07:54 Electronically Signed by: Faustino Blackwood MD 09/07/16 07:55 FINAL REPORT [facility] Digital Mammo Screening [place] Digital Mammo Screening [place] - DIGITAL MAMMO SCREENING [place] BILATERAL DIGITAL SCREENING MAMMOGRAM WITH CAD: 03/28/2016 CLINICAL: Routine. Current study was evaluated with a Computer Aided Detection (CAD) system. Comparison is made to exams dated: 03/20/2015 mammogram, 01/27/2014 mammogram, 01/25/2013 mammogram, 11/11/2011 mammogram, 10/29/2010 mammogram and 10/28/2009 mammogram - [facility]. There are scattered fibroglandular densities in both breasts. Tomosynthesis views show multiple bilateral low-density circumscribed masses which are fluctuating in size and likely cysts and benign. No significant masses, calcifications, or other findings are seen in either breast. There has been no significant interval change. IMPRESSION: BENIGN Bilateral circumscribed masses. There is no mammographic evidence of malignancy. A 1 year screening mammogram is recommended. Professional services are provided by the [facility]. Juju escobar/bobo:03/29/2016 09:45:53 Diamond Setter Apprentice: Jocelyn GUERRERO(R)(M), [facility] This exam was dictated and interpreted by [id number] for DOMINGO Zamora 15. letter sent: Normal exam Mammogram BI-RADS: 2 Benign 03/28/2016 - - Read by: Juju Corcoran MD Dictated Date/time: 03/29/16 09:45 Electronically Signed by: Juju Corcoran MD 03/29/16 09:45 FINAL REPORT [facility] Chest 2 views DX Chest 2 views DX Study: Chest 2 views DX Clinical Indication: Z85.118 Personal history of other malignant neoplasm of bronchus and lung Comparison: 09/29/2015 FINDINGS: Cardiac silhouette is normal in size. Stable postoperative changes of the right lung are seen with associated right hilar surgical clips and volume loss. Mild right basilar atelectasis is seen. Ovoid opacity measuring 4.7 cm in the periphery of the right upper lobe is seen, may represent small amount of loculated pleural fluid. Left hemithorax is clear. Right apical pleural thickening is seen with adjacent cystic lucencies. Osseous structures are stable. IMPRESSION: 1. Stable postoperative changes of the right lung with 4.7 cm peripheral opacity in the right lung which may represent small amount of loculated pleural fluid. 2. Scattered cystic lucencies along the right apex which may represent a minimal amount of pneumothorax. SL: [id number] 10/07/2015 - - Read by: Dion Keating MD Dictated Date/time: 10/07/15 16:04 Electronically Signed by: Dion Keating MD 10/07/15 16:06 FINAL REPORT [facility] Chest 1view DX Chest 1view DX Study: Chest 1view DX Clinical Indication: Tube placement/removal/reposition Comparison: 09/29/2015 at 6:58 AM FINDINGS: Previously noted right-sided chest tube has been removed. Stable postoperative changes of the right lung are again seen with associated volume loss and scattered parenchymal opacities in the right lower lobe. Pleural thickening along the right lung is stable. No discrete pneumothorax is seen. Left hemithorax is clear. Cardiac silhouette is normal in size. Right internal jugular central line is stable. The osseous structures are unremarkable. IMPRESSION: Interval removal of right-sided chest tube. No discrete pneumothorax is seen. SL: [id number] 09/29/2015 - - Read by: Dion Keating MD Dictated Date/time: 09/29/15 14:21 Electronically Signed by: Dion Keating MD 09/29/15 14:22 FINAL REPORT [facility] CHEM PANEL Magnesium Lvl 2.2 mg/dL 1.8 - 2.4 09/29/2015 [facility] ELECTROLYTES AGAP 9.9 meq/L 10.0 - 20.0 09/29/2015 [facility] ELECTROLYTES eGFR 105 mL/min/1.73m2 09/29/2015 Result Comment: The eGFR is calculated using the CKD-EPI formula. In most young, healthy individuals the eGFR will be >90 mL/min/1.73m2. The eGFR declines with age. An eGFR of 60-89 may be normal in some populations, particularly the elderly, for whom the CKD-EPI formula has not been extensively validated. Use of the eGFR is not recommended in the following populations: Individuals with unstable creatinine concentrations, including patients and those with serious co-morbid conditions. Patients with extremes in muscle mass or diet. The data above are obtained from the National Kidney Disease Education Program (NKDEP) which additionally recommends that when the eGFR is used in patients with extremes of body mass index for purposes of drug dosing, the eGFR should be multiplied by the estimated BMI. [facility] ELECTROLYTES Creatinine Lvl 0.53 mg/dL 0.50 - 1.40 09/29/2015 [facility] ELECTROLYTES BUN 11 mg/dL 7 - 22 09/29/2015 [facility] ELECTROLYTES CO2 30 meq/L 24 - 32 09/29/2015 [facility] ELECTROLYTES Calcium Lvl 7.5 mg/dL 8.5 - 10.5 09/29/2015 [facility] ELECTROLYTES Sodium Lvl 141 meq/L 135 - 145 09/29/2015 [facility] ELECTROLYTES Potassium Lvl 3.9 meq/L 3.5 - 5.1 09/29/2015 [facility] ELECTROLYTES Chloride Lvl 105 meq/L 95 - 109 09/29/2015 [facility] ELECTROLYTES Glucose Lvl 113 mg/dL 70 - 99 09/29/2015 [facility] HEMATOLOGY Basophils # 0.1 K/CMM 0.0 - 0.2 09/29/2015 [facility] HEMATOLOGY Monocytes 5.8 % 2.0 - 12.0 09/29/2015 [facility] HEMATOLOGY Segs 80.5 % 45.0 - 75.0 09/29/2015 [facility] HEMATOLOGY Eosinophils 2.8 % 0.0 - 4.0 09/29/2015 [facility] HEMATOLOGY Lymphocytes 10.2 % 20.0 - 40.0 09/29/2015 [facility] HEMATOLOGY Basophils 0.7 % 0.0 - 1.0 09/29/2015 [facility] HEMATOLOGY Eosinophils # 0.2 K/CMM 0.0 - 0.5 09/29/2015 [facility] HEMATOLOGY Monocytes # 0.5 K/CMM 0.0 - 0.8 09/29/2015 [facility] Lymphocytes # 0.8 K/CMM 1.0 - 5.5 09/29/2015 [facility] Segs-Bands # 6.6 K/CMM 1.5 - 8.1 09/29/2015 [facility] RBC 3.13 M/CMM 4.20 - 5.40 09/29/2015 [facility] WBC 8.3 K/CMM 3.7 - 10.4 09/29/2015 [facility] Hct 25.8 % 36.0 - 48.0 09/29/2015 [facility] Hgb 8.4 g/dL 12.0 - 16.0 09/29/2015 [facility] MCHC 32.5 g/dL 32.0 - 36.0 09/29/2015 [facility] MCH 26.8 pg 27.0 - 31.0 09/29/2015 [facility] MCV 82.4 fL 80.0 - 98.0 09/29/2015 [facility] MPV 8.5 fL 7.4 - 10.4 09/29/2015 [facility] Platelet 186 K/CMM 133 - 450 09/29/2015 [facility] RDW 16.8 % 11.5 - 14.5 09/29/2015 [facility] Chest 1view DX Chest 1view DX Patient Name: COLLEEN REDDY : 1955; Age: 60 years y/o Female MR: [id number] Study: Chest 1view DX dated 09/29/2015. Clinical Indication: Tube placement/removal/reposition; Comparison: 09/28/2015 Interval removal of one right chest tube. Another right chest tube is still in place. Stable position of right internal jugular catheter. Enlarged cardiac silhouette and mediastinal structures are stable. Patchy consolidation to the right midlung and right lung base particularly in the right perihilar area is similar to prior study. No change in right pleural effusion/pleural thickening. No focal infiltrate within the left lung. No pneumothorax. SL: [id number] 09/29/2015 - - Read by: Devaughn Braga MD Dictated Date/time: 09/29/15 08:46 Electronically Signed by: Devaughn Braga MD 09/29/15 08:48 FINAL REPORT [facility] BLOOD BANK RESULTS Antibody Scrn Negative (09/28/15 10:08 AM) 09/28/2015 [facility] BLOOD [facility] RESULTS ABO/Rh O NEG 09/28/2015 [facility] Biopsy lung/chest VR Biopsy lung/chest VR Clinical Indication: lung nodule; Comparison: None CT-guided core biopsy of right pulmonary nodule. Small nodule in the right upper lobe adjacent to the major fissure, which measures 9 x 10 mm. Percutaneous core biopsy of this was performed with CT guidance. Performed coaxially through 19-gauge cannula. 4 core biopsy specimens obtained. Intravenous conscious sedation. Patient received 4 mg Versed and 100 echograms fentanyl intravenously. Total physician-patient [id number] sedation monitoring 31 minutes. Procedure well-tolerated. SL: [id number] 09/28/2015 - - Read by: Bull Quintanilla MD Dictated Date/time: 09/28/15 16:46 Electronically Signed by: Bull Quintanilla MD 09/28/15 16:48 FINAL REPORT [facility] RESULTS RBC product Product available 2 (09/28/15 9:26 AM) 09/28/2015 Result Comment: 09/28/2015 11:36 [id number] Notified Bull at 09/28/2015 11:36 by moose [facility] 1view DX Chest 1view DX Patient Name: COLLEEN REDDY : 1955; Age: 60 years y/o Female MR: [id number] * CHEST, portable, 1 view 09/28/2015 @ 14:30 HISTORY: Status post right middle lobectomy for stage I lung carcinoma. The patient underwent diagnostic video-assisted thorascopic surgery converted to open thoracotomy on 09/24/2015. Comparison is made to a study performed earlier today. Postoperative studies from yesterday and 09/26/2015 and a preoperative study of 09/22/[address] images obtained during biopsy of a right chest mass from earlier today were also reviewed. IMPRESSION: 1. No significant change from the study performed earlier today. There are 2 large bore chest tubes in place. There is no pneumothorax or subcutaneous emphysema. 2. Pleural and parenchymal opacities in the right hemithorax which appear to be related to postoperative changes with residual pleural disease and atelectasis and infiltrate. 3. Left lung is clear. 4. Mild cardiomegaly without overt failure. 5. The tip of the right IJ central venous catheter is in the mid superior vena cava. 6. The study is limited due to the patient's habitus and portable technique. SL: [id number] 09/28/2015 - - Read by: Faustino Blackwood MD Dictated Date/time: 09/29/15 09:20 Electronically Signed by: Faustino Blackwood MD 09/29/15 09:25 FINAL REPORT [facility] ELECTROLYTES AGAP 10.0 meq/L 10.0 - 20.0 09/28/2015 [facility] ELECTROLYTES eGFR 105 mL/min/1.73m2 09/28/2015 Result Comment: The eGFR is calculated using the CKD-EPI formula. In most young, healthy individuals the eGFR will be >90 mL/min/1.73m2. The eGFR declines with age. An eGFR of 60-89 may be normal in some populations, particularly the elderly, for whom the CKD-EPI formula has not been extensively validated. Use of the eGFR is not recommended in the following populations: Individuals with unstable creatinine concentrations, including patients and those with serious co-morbid conditions. Patients with extremes in muscle mass or diet. The data above are obtained from the National Kidney Disease Education Program (NKDEP) which additionally recommends that when the eGFR is used in patients with extremes of body mass index for purposes of drug dosing, the eGFR should be multiplied by the estimated BMI. [facility] ELECTROLYTES CO2 28 meq/L 24 - 32 09/28/2015 [facility] ELECTROLYTES Calcium Lvl 7.9 mg/dL 8.5 - 10.5 09/28/2015 [facility] ELECTROLYTES Sodium Lvl 140 meq/L 135 - 145 09/28/2015 [facility] ELECTROLYTES Potassium Lvl 4.0 meq/L 3.5 - 5.1 09/28/2015 [facility] ELECTROLYTES Creatinine Lvl 0.54 mg/dL 0.50 - 1.40 09/28/2015 [facility] ELECTROLYTES BUN 12 mg/dL 7 - 22 09/28/2015 [facility] ELECTROLYTES Glucose Lvl 117 mg/dL 70 - 99 09/28/2015 [facility] ELECTROLYTES Chloride Lvl 106 meq/L 95 - 109 09/28/2015 [facility] HEMATOLOGY Eosinophils # 0.1 K/CMM 0.0 - 0.5 09/28/2015 [facility] HEMATOLOGY Lymphocytes 7.9 % 20.0 - 40.0 09/28/2015 [facility] HEMATOLOGY Segs 85.9 % 45.0 - 75.0 09/28/2015 [facility] Monocytes 5.1 % 2.0 - 12.0 09/28/2015 [facility] Eosinophils 0.8 % 0.0 - 4.0 09/28/2015 [facility] Lymphocytes # 0.5 K/CMM 1.0 - 5.5 09/28/2015 [facility] Segs-Bands # 5.9 K/CMM 1.5 - 8.1 09/28/2015 [facility] Basophils 0.3 % 0.0 - 1.0 09/28/2015 [facility] Monocytes # 0.4 K/CMM 0.0 - 0.8 09/28/2015 [facility] MCV 82.1 fL 80.0 - 98.0 09/28/2015 [facility] Hct 22.6 % 36.0 - 48.0 09/28/2015 [facility] MCH 26.7 pg 27.0 - 31.0 09/28/2015 [facility] RDW 17.2 % 11.5 - 14.5 09/28/2015 [facility] MCHC 32.5 g/dL 32.0 - 36.0 09/28/2015 [facility] RBC 2.76 M/CMM 4.20 - 5.40 09/28/2015 [facility] Hgb 7.4 g/dL 12.0 - 16.0 09/28/2015 [facility] MPV 8.6 fL 7.4 - 10.4 09/28/2015 [facility] Platelet 159 K/CMM 133 - 450 09/28/2015 [facility] WBC 6.9 K/CMM 3.7 - 10.4 09/28/2015 [facility] Chest 1view DX Chest 1view DX Patient Name: COLLEEN REDDY : 1955; Age: 60 years y/o Female MR: [id number] Study: Chest 1view DX dated 09/28/2015 Clinical Indication: Tube placement/removal/reposition; Comparison: 09/27/2015 There may be a small right apical pneumothorax that is similar to the prior study. Stable position of support equipment. Enlarged cardiac silhouette and mediastinal structures are stable including aortic calcification. No change in right pleural effusion/pleural thickening along the lateral right lung. No change patchy consolidation right mid lung and right lung base. No focal infiltrate within the left lung. No left pneumothorax. SL: [id number] 09/28/2015 - - Read by: Devaughn Braga MD Dictated Date/time: 09/28/15 07:58 Electronically Signed by: Devaughn Braga MD 09/28/15 08:00 FINAL REPORT [facility] ANEMIA STUDY Vitamin B12 Lvl 349 pg/mL 254 - 1320 09/27/2015 [facility] ANEMIA STUDY Ferritin Lvl 85 ng/mL 5 - 204 09/27/2015 [facility] ANEMIA STUDY Iron 25 ug/dl 30 - 160 09/27/2015 [facility] ANEMIA STUDY UIBC 177 ug/dl 110 - 370 09/27/2015 [facility] ANEMIA STUDY % Satur Fe 12 % 12 - 57 09/27/2015 [facility] ANEMIA STUDY TIBC 202 ug/dl 228 - 428 09/27/2015 [facility] ANEMIA STUDY Ferritin Lvl 89 ng/mL 5 - 204 09/27/2015 [facility] ANEMIA STUDY Folate Lvl 15.7 ng/mL >=3.0 ng/mL 09/27/2015 [facility] HEMATOLOGY Retic Auto 3.3 % 0.5 - 1.5 09/27/2015 [facility] ELECTROLYTES AGAP 8.0 meq/L 10.0 - 20.0 09/27/2015 [facility] ELECTROLYTES eGFR 106 mL/min/1.73m2 09/27/2015 Result Comment: The eGFR is calculated using the CKD-EPI formula. In most young, healthy individuals the eGFR will be >90 mL/min/1.73m2. The eGFR declines with age. An eGFR of 60-89 may be normal in some populations, particularly the elderly, for whom the CKD-EPI formula has not been extensively validated. Use of the eGFR is not recommended in the following populations: Individuals with unstable creatinine concentrations, including patients and those with serious co-morbid conditions. Patients with extremes in muscle mass or diet. The data above are obtained from the National Kidney Disease Education Program (NKDEP) which additionally recommends that when the eGFR is used in patients with extremes of body mass index for purposes of drug dosing, the eGFR should be multiplied by the estimated BMI. [facility] ELECTROLYTES Sodium Lvl 139 meq/L 135 - 145 09/27/2015 [facility] ELECTROLYTES Creatinine Lvl 0.52 mg/dL 0.50 - 1.40 09/27/2015 [facility] ELECTROLYTES BUN 13 mg/dL 7 - 22 09/27/2015 [facility] ELECTROLYTES Potassium Lvl 4.0 meq/L 3.5 - 5.1 09/27/2015 [facility] ELECTROLYTES Glucose Lvl 101 mg/dL 70 - 99 09/27/2015 [facility] ELECTROLYTES Calcium Lvl 7.6 mg/dL 8.5 - 10.5 09/27/2015 [facility] ELECTROLYTES CO2 29 meq/L 24 - 32 09/27/2015 [facility] ELECTROLYTES Chloride Lvl 106 meq/L 95 - 109 09/27/2015 [facility] HEMATOLOGY Segs-Bands # 7.6 K/CMM 1.5 - 8.1 09/27/2015 [facility] HEMATOLOGY Lymphocytes # 0.8 K/CMM 1.0 - 5.5 09/27/2015 [facility] HEMATOLOGY Basophils 0.4 % 0.0 - 1.0 09/27/2015 [facility] HEMATOLOGY Eosinophils 0.6 % 0.0 - 4.0 09/27/2015 [facility] HEMATOLOGY Monocytes # 0.5 K/CMM 0.0 - 0.8 09/27/2015 [facility] HEMATOLOGY Eosinophils # 0.1 K/CMM 0.0 - 0.5 09/27/2015 [facility] HEMATOLOGY Segs 84.9 % 45.0 - 75.0 09/27/2015 [facility] HEMATOLOGY Lymphocytes 8.9 % 20.0 - 40.0 09/27/2015 [facility] HEMATOLOGY Monocytes 5.2 % 2.0 - 12.0 09/27/2015 [facility] HEMATOLOGY MPV 8.8 fL 7.4 - 10.4 09/27/2015 [facility] HEMATOLOGY RDW 16.5 % 11.5 - 14.5 09/27/2015 [facility] HEMATOLOGY Platelet 146 K/CMM 133 - 450 09/27/2015 [facility] HEMATOLOGY Hgb 7.6 g/dL 12.0 - 16.0 09/27/2015 [facility] HEMATOLOGY Hct 23.5 % 36.0 - 48.0 09/27/2015 [facility] HEMATOLOGY RBC 2.87 M/CMM 4.20 - 5.40 09/27/2015 [facility] HEMATOLOGY WBC 9.0 K/CMM 3.7 - 10.4 09/27/2015 [facility] HEMATOLOGY MCV 81.6 fL 80.0 - 98.0 09/27/2015 [facility] HEMATOLOGY MCHC 32.4 g/dL 32.0 - 36.0 09/27/2015 [facility] HEMATOLOGY MCH 26.5 pg 27.0 - 31.0 09/27/2015 [facility] Chest w contrast CT Chest w contrast CT Study: Chest w contrast CT 09/27/2015 8:49 AM CDT Patient Name: COLLEEN REDDY MR: [id number] : 1955; Age: 60 years y/o Female Ordering Physician: Shayy Lobo MD Clinical Indication: Right lobectomy with of leukocytosis and history of lung cancer. Comparison: 12/05/2013. TECHNIQUE: Contiguous transaxial CT images were obtained through the chest beginning at the base of the neck extending into the upper abdomen. Sagittal and coronal reformatted images were prepared. IV CONTRAST: Yes GI CONTRAST: No. FINDINGS: LUNG PARENCHYMA AND PLEURA: Postoperative change of right partial pneumonectomy is present with 2 right chest tubes present in the pleural space both laterally and posteriorly. Hazy and patchy opacities in the right lung are consistent with contusion, subsegmental atelectasis, or pneumonitis. A small right pleural effusion and scattered hydropneumothorax is present with mild loculation seen in the right lung apex. Ill-defined increased attenuation seen in the pleural space in the right upper lobe and right lung apex may be related to proteinaceous or hemorrhagic products versus phlegmon in the appropriate setting. Induration, stranding, soft tissue gas is seen in the right chest wall. No peripherally enhancing fluid collection is seen to suggest abscess or definitive empyema. Scattered centrilobular emphysema is seen in the lungs, greatest on the right. Mild left basilar subsegmental atelectasis. AIRWAY: Mild retained secretions distally in the trachea. HEART: Heart size near upper limits of normal. THORACIC AORTA: Mildly tortuous normal caliber thoracic aorta. PULMONARY ARTERIES: No evidence of central pulmonary embolus. MEDIASTINUM AND RAVINDRA: Multiple scattered subcentimeter to mildly enlarged mediastinal lymph nodes measuring 1.9 cm at maximum. VISUALIZED UPPER ABDOMEN: Mild scarring in the right kidney. Mild hepatic steatosis with 1.3 cm low-attenuation hepatic dome lesion suspicious for a cyst or hemangioma. OSSEOUS STRUCTURES: Spinal degenerative change with postoperative change in the right ribs from thoracotomy. IMPRESSION: 1. Postoperative change of right partial pneumonectomy with a small partially loculated right hydropneumothorax greatest in the right lung apex. Ill-defined increased attenuation seen in the pleural space in the right upper lobe and right lung apex may be related to proteinaceous or hemorrhagic products versus phlegmon in the appropriate setting. No definitive peripherally enhancing fluid collection is present. Hazy and patchy opacity in the right lung is suspicious for contusion and atelectasis although a component of pneumonitis cannot be excluded given the appearance. Postoperative changes seen in the right chest wall. 2. Heart size near upper limits of normal. 3. Mild reactive mediastinal lymphadenopathy. 4. Mild right renal cortical scarring 5. Hepatic steatosis with small low-attenuation lesions suggesting a cyst or meningioma. SL: [id number] 09/27/2015 - - Read by: Maxim Burrell MD Dictated Date/time: 09/27/15 11:35 Electronically Signed by: Maxim Burrell MD 09/27/15 11:44 FINAL REPORT [facility] Chest 1view DX Chest 1view DX EXAM: Chest 1view DX DATE: 09/27/2015 9:00 AM CDT INDICATION: Tube placement/removal/reposition COMPARISON: 09/26/2015 IMPRESSION: Two right chest tubes are unchanged in position. No change of the right pleural thickening and pleural parenchymal opacity. The left lung is unchanged and clear. Stable moderately enlarged cardiac silhouette. Overall, no significant interval change. SL: [id number] 09/27/2015 - - Read by: Tomasz Gonzalez MD Dictated Date/time: 09/27/15 12:10 Electronically Signed by: Tomasz Gonzalez MD 09/27/15 12:11 FINAL REPORT [facility] CHEM PANEL Magnesium Lvl 2.2 mg/dL 1.8 - 2.4 09/26/2015 [facility] CHEM PANEL Total Protein 5.3 g/dL 6.4 - 8.4 09/26/2015 [facility] CHEM PANEL Alk Phos 39 unit/L 39 - 136 09/26/2015 [facility] CHEM PANEL Bili Total 0.6 mg/dL 0.2 - 1.3 09/26/2015 [facility] CHEM PANEL ALT 32 unit/L 0 - 65 09/26/2015 [facility] CHEM PANEL AST 31 unit/L 0 - 37 09/26/2015 [facility] CHEM PANEL Albumin Lvl 2.9 g/dL 3.5 - 5.0 09/26/2015 [facility] CHEM PANEL A/G Ratio 1.2 0.7 - 1.6 09/26/2015 [facility] CHEM PANEL B/C Ratio 16 6 - 25 09/26/2015 [facility] CHEM PANEL Globulin 2.4 g/dL 2.0 - 4.0 09/26/2015 [facility] Chest 1view DX Chest 1view DX Chest 1view DX CLINICAL HISTORY:Tube placement/removal/reposition COMPARISON: 09/24/2015, 09/25/2015 FINDINGS: Limited AP portable study. The various support lines and tubes are stable in position in comparison to previous study. Widening of the pleural margin probably related to loculated pleural fluid throughout the lateral aspect of the right hemithorax persists. Mild airspace disease in the right mid to lower lung zone is unchanged. Stable cardiomediastinum. No acute bony abnormality is noted. Multiple EKG leads and other wires project over the patient's chest. IMPRESSION: No significant change from previous study is noted. SL: [id number] 09/26/2015 - - Read by: Juan Antonio Plaza MD Dictated Date/time: 09/26/15 07:24 Electronically Signed by: Juan Antonio Plaza MD 09/26/15 07:26 FINAL REPORT [facility] HEMATOLOGY PT 15.7 s 12.0 - 14.7 09/25/2015 [facility] HEMATOLOGY INR 1.22 0.85 - 1.17 09/25/2015 [facility] HEMATOLOGY PTT 35.3 s 22.9 - 35.8 09/25/2015 [facility] BLOOD BANK RESULTS RBC product Product available 3 (09/25/15 2:12 PM) 09/25/2015 Result Comment: 09/25/2015 14:27 [id number] notified Steven at 09/25/2015 14:27 [facility] CHEM PANEL Magnesium Lvl 1.5 mg/dL 1.8 - 2.4 09/25/2015 [facility] CHEM PANEL Phosphorus 2.7 mg/dL 2.5 - 4.5 09/25/2015 [facility] CHEM PANEL Total Protein 4.9 g/dL 6.4 - 8.4 09/25/2015 [facility] CHEM PANEL Globulin 2.0 g/dL 2.0 - 4.0 09/25/2015 [facility] CHEM PANEL Albumin Lvl 2.9 g/dL 3.5 - 5.0 09/25/2015 [facility] CHEM PANEL ALT 34 unit/L 0 - 65 09/25/2015 [facility] CHEM PANEL A/G Ratio 1.4 0.7 - 1.6 09/25/2015 [facility] CHEM PANEL Alk Phos 34 unit/L 39 - 136 09/25/2015 [facility] CHEM PANEL AST 38 unit/L 0 - 37 09/25/2015 [facility] CHEM PANEL Bili Total 0.5 mg/dL 0.2 - 1.3 09/25/2015 [facility] CHEM PANEL B/C Ratio 16 6 - 25 09/25/2015 [facility] CHEM PANEL Bili Total 0.5 mg/dL 0.2 - 1.3 09/25/2015 [facility] CHEM PANEL Alk Phos 34 unit/L 39 - 136 09/25/2015 [facility] CHEM PANEL Bili Indirect 0.3 mg/dL 0.0 - 1.0 09/25/2015 [facility] CHEM PANEL A/G Ratio 1.5 0.7 - 1.6 09/25/2015 [facility] CHEM PANEL Globulin 1.9 g/dL 2.0 - 4.0 09/25/2015 [facility] CHEM PANEL Total Protein 4.8 g/dL 6.4 - 8.4 09/25/2015 [facility] CHEM PANEL AST 37 unit/L 0 - 37 09/25/2015 [facility] CHEM PANEL ALT 32 unit/L 0 - 65 09/25/2015 [facility] CHEM PANEL Albumin Lvl 2.9 g/dL 3.5 - 5.0 09/25/2015 [facility] CHEM PANEL Bili Direct 0.2 mg/dL 0.0 - 0.3 09/25/2015 [facility] HEMATOLOGY PT 16.8 s 12.0 - 14.7 09/25/2015 [facility] HEMATOLOGY INR 1.33 0.85 - 1.17 09/25/2015 [facility] BLOOD BANK RESULTS FFP product Product available 1 (09/25/15 1:31 AM) 09/25/2015 Result Comment: 09/25/2015 03:25 [id number] notified shonna herrera 09/25/2015 03:25 jw [facility] BLOOD BANK RESULTS RBC product Product available 4 (09/25/15 1:30 AM) 09/25/2015 Result Comment: 09/25/2015 02:27 [id number] notified shonna herrera 09/25/2015 02:27 jw [facility] Chest 1view DX Chest 1view DX Portable chest: The right pleural tubes and right jugular central line are in satisfactory position. The right pleural fluid collections are unchanged compared to the previous day. Right basilar subsegmental atelectasis is again noted. The left lung and pleural space are clear. There are no other new findings. [id number] 09/25/2015 - - Read by: Carmine Martinez MD Dictated Date/time: 09/25/15 06:14 Electronically Signed by: Carmine Martinez MD 09/25/15 06:15 FINAL REPORT [facility] BACTERIAL - SEROLOGY MRSA by PCR Negative (09/24/15 9:15 PM) 09/25/2015 [facility] HEMATOLOGY Plt Morph Normal (09/24/15 4:31 PM) 09/24/2015 [facility] HEMATOLOGY Basophils # 0.1 K/CMM 0.0 - 0.2 09/24/2015 [facility] RBC Morph Normal (09/24/15 2:21 PM) 09/24/2015 [facility] Plt Morph Normal (09/24/15 2:21 PM) 09/24/2015 [facility] Chest 1view DX Chest 1view DX CHEST RADIOGRAPH SINGLE VIEW INDICATION: Central line placement COMPARISON: Chest radiograph 09/24/2015 IMPRESSION: There has been interval placement of a right IJ central line, the tip in the expected region of the right superior vena cava, in satisfactory position. No pneumothorax is visualized. Two right chest tubes remain in place. Right pulmonary opacification is stable. SL:16 09/24/2015 - - Read by: Ino Murray MD Dictated Date/time: 09/24/15 17:56 Electronically Signed by: Ino Murray MD 09/24/15 17:58 FINAL REPORT [facility] Chest 1view DX Chest 1view DX EXAM: Chest 1view DX DATE: 09/24/2015 4:17 PM CDT INDICATION: Chest pain COMPARISON: 14:28 IMPRESSION: 2 right chest tubes are unchanged. No significant pneumothorax detected. Persistent patchy right upper and lower lobe parenchyma and pleural opacities are unchanged. Surgical clips and sutures are present within the right hilar region. The left lung is unchanged and clear. Stable mildly enlarged cardiac silhouette. SL: [id number] 09/24/2015 - - Read by: Tomasz Gonzalez MD Dictated Date/time: 09/24/15 16:41 Electronically Signed by: Tomasz Gonzalez MD 05/12/16 16:43 FINAL REPORT [facility] Chest 1view DX Chest 1view DX EXAM: Chest 1view DX DATE: 09/24/2015 2:14 PM CDT INDICATION: Tube placement/removal/reposition COMPARISON: 09/22/2015. IMPRESSION: Interval placement of 2 right chest tubes with their tips in the right lower lobe and upper lobe. Stable surgical clips and sutures sutures are present in the right hilum. New patchy right upper and lower lobe opacities and probable pleural thickening. No significant pneumothorax detected. The left lung is unchanged. Stable mildly enlarged cardiac silhouette. Atherosclerotic thoracic aorta. SL: [id number] 09/24/2015 - - Read by: Tomasz Gonzalez MD Dictated Date/time: 09/24/15 15:04 Electronically Signed by: Tomasz Gonzalez MD 09/24/15 15:06 FINAL REPORT [facility] BLOOD BANK RESULTS ABO/Rh O NEG 09/22/2015 [facility] BLOOD BANK RESULTS Antibody Scrn Negative (09/22/15 3:20 PM) 09/22/2015 [facility] CHEM PANEL B/C Ratio 16 6 - 25 09/22/2015 [facility] HEMATOLOGY PTT 28.5 s 22.9 - 35.8 09/22/2015 [facility] HEMATOLOGY INR 1.04 0.85 - 1.17 09/22/2015 [facility] HEMATOLOGY PT 13.9 s 12.0 - 14.7 09/22/2015 [facility] URINE AND STOOL UA Color Ltyellow 09/22/2015 [facility] URINE AND STOOL UA Urobilinogen <=1.0 mg/dL 0.1 - 1.0 09/22/2015 [facility] URINE AND STOOL UA Turbidity Clear (09/22/15 3:20 PM) Clear 09/22/2015 [facility] URINE AND STOOL UA Spec Grav 1.024 <=1.030 09/22/2015 [facility] URINE AND STOOL UA pH 5.0 5.0 - 8.0 09/22/2015 [facility] URINE AND STOOL UA Ketones Negative mg/dL Negative mg/dL 09/22/2015 [facility] URINE AND STOOL UA Bili Negative *NA* (09/22/15 3:20 PM) Negative 09/22/2015 [facility] URINE AND STOOL UA Mucus Few /LPF None Seen /LPF 09/22/2015 [facility] URINE AND STOOL UA Protein Negative mg/dL Negative mg/dL 09/22/2015 [facility] URINE AND STOOL UA Nitrite Negative (09/22/15 3:20 PM) Negative 09/22/2015 [facility] URINE AND STOOL UA Glucose 500 mg/dL Negative mg/dL 09/22/2015 [facility] URINE AND STOOL UA Sq Epi Occasional /LPF Few /LPF 09/22/2015 [facility] URINE AND STOOL UA WBC 103 /HPF 0 - 5 09/22/2015 [facility] URINE AND STOOL UA Blood Negative (09/22/15 3:20 PM) Negative 09/22/2015 [facility] URINE AND STOOL UA Bacteria Few /HPF None Seen /HPF 09/22/2015 [facility] URINE AND STOOL UA Leuk Est Small *ABN* (09/22/15 3:20 PM) Negative 09/22/2015 [facility] URINE AND STOOL UA RBC 7 /HPF 0 - 2 09/22/2015 [facility] Chest 2 views DX Chest 2 views DX Patient Name: COLLEEN REDDY : 1955; Age: 60 years y/o Female MR: [id number] * CHEST, 2 views HISTORY: Coughing, ; COMPARISON: 06/05/2013, TECHNIQUE: Frontal and lateral radiographs of the chest were obtained. IMPRESSION: 1. No active or acute process or change from the prior study. There are no new infiltrates, pleural effusions, nodules, or masses. 2. Post right thoracotomy changes, status post right middle lobectomy. It is noted a chest computed tomography scan from 03/29/2012 demonstrated an approximately 16 mm mass medially in the right middle lobe. This was biopsied on 04/30/2012. It appears the patient underwent a right thoracotomy on 05/28/2012. There are rib changes and volume loss the right hemithorax secondary to right middle lobectomy. There is also mild pleural and parenchymal scarring in the right lower hemithorax. 3. The heart is normal in size. 4. There are mild scattered degenerative changes involving the thoracic spine. The regional skeleton is otherwise unremarkable. SL: [id number] 09/22/2015 - - Read by: Faustino Blackwood MD Dictated Date/time: 09/22/15 16:02 Electronically Signed by: Faustino Blackwood MD 09/22/15 16:08 FINAL REPORT [facility] Digital Mammo Screening [place] Digital Mammo Screening [place] [place] - DIGITAL MAMMO SCREENING [facility] [place] BILATERAL DIGITAL SCREENING MAMMOGRAM WITH CAD: 03/20/2015 CLINICAL: Routine. Current study was evaluated with a Computer Aided Detection (CAD) system. Comparison is made to exams dated: 01/27/2014 mammogram, 01/25/2013 mammogram, 11/11/2011 mammogram, 10/29/2010 mammogram and 10/28/2009 mammogram - [facility]. There are scattered fibroglandular densities in both breasts. Exam is limited as the technologist notes the patient would not allow for optimal compression and best images possible were obtained. There are benign appearing densities in both breasts. No significant masses, calcifications, or other findings are seen in either breast. There has been no significant interval change. IMPRESSION: BENIGN There is no mammographic evidence of malignancy. A 1 year screening mammogram is recommended. Claudia Wells M.D. ms/penrad:03/23/2015 16:40:07 [employer] Setter Apprentice: Jocelyn GUERRERO(R)(M), [facility] This exam was dictated and interpreted by [id number] for Bry. letter sent: Normal exam Mammogram BI-RADS: 2 Benign 03/20/2015 - - Read by: Claudia Wells MD Dictated Date/time: 03/23/15 16:40 Electronically Signed by: Claudia Wells MD 03/23/15 16:40 FINAL REPORT [facility] Chest w contrast CT Chest w contrast CT CT CHEST WITH CONTRAST: TECHNIQUE: Axial images were done with IV contrast. FINDINGS: Postsurgical changes in the right hemithorax seen on the previous chest CT of 06/04/2012 have resolved. Surgical clips in the right hilar region are noted related to right middle lobectomy. There is a small area of residual subpleural scarring in the inferolateral right lower lobe. Multiple right rib deformities are noted. There are no other significant pulmonary or pleural abnormalities. There is no mediastinal mass or significant lymph node enlargement. No significant vascular abnormalities are noted. There is no significant change compared to the previous PET/CT on 11/01/2012. IMPRESSION: Old postsurgical changes in the right hemithorax. There is no other acute CT abnormality in the chest. SL:13 12/05/2013 - - Read by: Carmine Martinez MD Dictated Date/time: 12/06/13 09:22 Electronically Signed by: Carmine Martinez MD 12/06/13 09:30 FINAL REPORT [facility] Vital Signs Vital Sign Value Date Comments Source Weight 254 01/31/2018 [facility] De Jesus [facility], [place] Heart Rate 85 01/31/2018 [facility] De Jesus [facility], [facility] Diastolic (mm Hg) 80 01/31/2018 Barron De Jesus [facility], [place] Systolic (mm Hg) 120 01/31/2018 Barron De Jesus [facility], [place] Respitory Rate 16 07/27/2017 [facility] Systolic (mm Hg) 115 07/27/2017 [facility] Diastolic (mm Hg) 82 07/27/2017 [facility] Heart Rate 93 07/27/2017 [facility] Temperature Oral (F) 97.6 F 07/27/2017 [facility] Respitory Rate 16 07/27/2017 [facility] Temperature Oral (F) 98.1 F 07/27/2017 [facility] Systolic (mm Hg) 124 07/27/2017 [facility] Diastolic (mm Hg) 82 07/27/2017 [facility] Respitory Rate 18 07/27/2017 [facility] Heart Rate 78 07/27/2017 [facility] Systolic (mm Hg) 108 07/27/2017 [facility] Diastolic (mm Hg) 60 07/27/2017 [facility] Temperature Oral (F) 98.0 F 07/27/2017 [facility] Heart Rate 71 07/27/2017 [facility] Weight 123.364 07/23/2017 [facility] Height 170.18 cm 07/21/2017 [facility] Weight 115.909 07/21/2017 [facility] BMI Calculated 40.02 07/21/2017 [facility] Weight 106.818 07/20/2017 [facility] Height 152.4 cm 07/20/2017 [facility] BMI Calculated 45.99 07/20/2017 [facility] Weight 245 01/23/2017 Barron De Jesus MD, [facility] Heart Rate 94 01/23/2017 Barron De Jesus MD, [facility] Diastolic (mm Hg) 80 01/23/2017 Barron De Jesus MD, [place] Systolic (mm Hg) 135 01/23/2017 Barron De Jesus MD, [facility] Respitory Rate 18 09/07/2016 [facility] Heart Rate 66 09/07/2016 [facility] Systolic (mm Hg) 130 09/07/2016 [facility] Diastolic (mm Hg) 60 09/07/2016 [facility] Systolic (mm Hg) 136 09/07/2016 [facility] Diastolic (mm Hg) 83 09/07/2016 [facility] Heart Rate 78 09/07/2016 [facility] Height 170.18 cm 09/07/2016 [facility] Temperature Oral (F) 97.7 F 09/07/2016 [facility] Respitory Rate 18 09/07/2016 [facility] Weight 106.818 09/07/2016 [facility] BMI Calculated 36.88 09/07/2016 [facility] Weight 240 01/28/2016 Barron De Jesus MD, PA Heart Rate 82 01/28/2016 Barron De Jesus MD, [place] Diastolic (mm Hg) 70 01/28/2016 Barron De Jesus MD, [place] Systolic (mm Hg) 138 01/28/2016 Barron De Jesus MD, [place] Respitory Rate 18 09/29/2015 [facility] Heart Rate 86 09/29/2015 [facility] Temperature Oral (F) 98.4 F 09/29/2015 [facility] Systolic (mm Hg) 117 09/29/2015 [facility] Diastolic (mm Hg) 72 09/29/2015 [facility] Systolic (mm Hg) 102 09/29/2015 [facility] Temperature Oral (F) 97.8 F 09/29/2015 [facility] Respitory Rate 18 09/29/2015 [facility] Heart Rate 77 09/29/2015 [facility] Diastolic (mm Hg) 57 09/29/2015 [facility] Heart Rate 68 09/29/2015 [facility] Systolic (mm Hg) 130 09/29/2015 [facility] Diastolic (mm Hg) 78 09/29/2015 [facility] Respitory Rate 18 09/29/2015 [facility] Temperature Oral (F) 98.2 F 09/29/2015 [facility] BMI Calculated 37.59 09/22/2015 [facility] Height 170.18 cm 09/22/2015 [facility] Weight 108.864 09/22/2015 [facility] Weight 240 08/26/2015 Barron De Jesus MD, PA Heart Rate 81 08/26/2015 Barron De Jesus MD, [facility] Diastolic (mm Hg) 70 08/26/2015 Barron De Jesus MD, PA Systolic (mm Hg) 103 08/26/2015 Barron De Jesus MD, [place] Encounters Location Location Details Encounter Type Encounter Number Reason For Visit Attending Provider ADM Date DC Date Status Source [facility] Outpatient [id number] Myke Mckay 12/05/2013 12/06/2013 [facility] OP Recurring [id number] Laurita Gilbert 01/20/2014 02/19/2014 [facility] [place] [facility] [id number] Laurita Gilbert 01/27/2014 01/28/2014 [facility] [place] Barron De Jesus MD, PA Unknown [id number] 02/23/2015 02/23/2015 Barron De Jesus MD, PA Barron De Jesus MD, PA Unknown [id number] 02/23/2015 02/23/2015 Barron De Jesus MD, [place] Barron De Jesus MD, [place] Unknown [id number] 02/23/2015 02/23/2015 Barron De Jesus MD, [place] Barron De Jesus MD, PA Unknown [id number] 02/23/2015 02/23/2015 Barron De Jesus MD, PA Barron De Jesus MD, PA Unknown [id number] 02/23/2015 02/23/2015 Barron De Jesus MD, [place] Barron De Jesus MD, PA Unknown [id number] 02/23/2015 02/23/2015 Barron De Jesus MD, [place] Barron De Jesus MD, [place] Unknown [id number] 02/23/2015 02/23/2015 Barron De Jesus MD, PA [facility] [place] [facility] [id number] Laurita Doador 03/20/2015 03/21/2015 [facility], [place] Refill [id number] 04/17/2015 04/17/2015 Barron De Jesus MD, [place] Barron De Jesus MD, [place] Refill [id number] 04/17/2015 04/17/2015 Barron De Jesus MD, [place] Barron De Jesus MD, [place] Refill [id number] 04/17/2015 04/17/2015 Barorn De Jesus MD, PA Barron De Jesus MD, [place] Refill [id number] 04/17/2015 04/17/2015 Barron De Jesus MD, PA Barron De Jesus MD, PA Refill [id number] 04/17/2015 04/17/2015 Barron De Jesus MD, PA Barron De Jesus MD, PA Refill [id number] 04/17/2015 04/17/2015 Barron De Jesus MD, PA Barron De Jesus MD, PA Refill [id number] 04/17/2015 04/17/2015 Barron De Jesus MD, PA Barron De Jesus MD, PA Follow-Up [id number] 08/26/2015 08/26/2015 Barron De Jesus MD, PA Barron De Jesus MD, PA Follow-Up [id number] 08/26/2015 08/26/2015 Barron De Jesus MD, PA Barron De Jesus MD, PA Follow-Up [id number] 08/26/2015 08/26/2015 Barron De Jesus MD, PA Barron De Jesus MD, PA Follow-Up [id number] 08/26/2015 08/26/2015 Barron De Jesus MD, [place] Barron De Jesus MD, PA Refill [id number] 08/26/2015 08/26/2015 Barron De Jesus MD, RONAL De Jesus MD, PA Refill [id number] 08/26/2015 08/26/2015 Barron De Jesus MD, RONAL De Jesus MD, PA Refill [id number] 08/26/2015 08/26/2015 Barron De Jesus MD, [place] Barron De Jesus MD, [place] Refill [id number] 08/26/2015 08/26/2015 Barron De Jesus MD, RONAL De Jesus MD, PA Refill [id number] 08/26/2015 08/26/2015 Barron De Jesus MD, PA Barron De Jesus MD, PA Follow-Up [id number] 08/26/2015 08/26/2015 Barron De Jesus MD, RONAL De Jesus MD, PA Refill [id number] 08/26/2015 08/26/2015 Barron De Jesus MD, PA Barron De Jesus MD, PA echo/carotid/arterial dopplers [id number] 09/03/2015 09/03/2015 Barron De Jesus MD, RONAL De Jesus MD, PA echo/carotid/arterial dopplers [id number] 09/03/2015 09/03/2015 Barron De Jesus MD, PA Barron De Jesus MD, PA echo/carotid/arterial dopplers [id number] 09/03/2015 09/03/2015 Barron De Jesus MD, PA Barron De Jesus MD, PA echo/carotid/arterial dopplers [id number] 09/03/2015 09/03/2015 Barron De Jesus MD, PA [facility] Inpatient [id number] Carlos Gonzalez 09/24/2015 09/29/2015 [facility] Outpatient [id number] Ramakrishna Bailey 10/02/2015 10/03/2015 [facility] Outpatient [id number] Shayy Lobo 10/07/2015 10/08/2015 [facility] Barron De Jesus MD, PA Follow-Up [id number] 01/28/2016 01/28/2016 Barron De Jesus MD, PA Barron De Jesus MD, PA Follow-Up [id number] 01/28/2016 01/28/2016 Barron De Jesus MD, PA Barron De Jesus MD, PA Follow-Up [id number] 01/28/2016 01/28/2016 Barron De Jesus MD, PA Barron De Jesus MD, PA refill [id number] 03/02/2016 03/02/2016 Barron De Jesus MD, PA Barron De Jesus MD, PA refill [id number] 03/02/2016 03/02/2016 Barron De Jesus MD, PA [facility] - [facility] [id number] Laurita Gilbert 03/28/2016 03/29/2016 TONY De Jesus MD, PA Refill [id number] 05/10/2016 05/10/2016 Barron De Jesus MD, PA [facility] Emergency [id number] Dmitry Marvin 09/07/2016 09/07/2016 [facility] [place] [facility] [id number] Laurita Vladimir 03/16/2017 03/17/2017 [facility] [place] [facility] Inpatient [id number] Ailin Garciaoha 07/20/2017 07/27/2017 [facility] Outpatient [id number] Myke Mckay 08/29/2017 08/30/2017 [facility] Procedures Procedure Code Date Perfomer Comments Source Abdominal hysterectomy [id number] 05/15/1989 [facility] [place] Reposition of lens of eye [id number] 05/15/1989 [facility] [place] Abdominal hysterectomy [id number] 05/15/1989 [facility] Reposition of lens of eye [id number] 05/15/1989 [facility] Breast lumpectomy [id number] [facility] [place] Breast lumpectomy [id number] [facility] Lobectomy<sup>1</sup> [id number] 2012 [facility] Lobectomy<sup>1</sup> [id number] 2012 [facility] [place]
--- OUTSIDE RECORDS SUMMARY | 2018-03-09 11:22 | XMS REPORT | Summary of Care ---
Author Author [facility] Organization [facility] Address Unknown Phone Unavailable Encounter MUNDO Walker(YOMAIRA) [id number] Date(s): 09/24/15 - 09/29/15 [facility] [address] [place] [address]- Discharge Disposition: Home Attending Physician: Carlos Gonzalez DO Admitting Physician: Carlos Gonzalez DO Referring Physician: Shayy Lobo MD Vital Signs 1 2 3 Most recent to oldest [Reference Range]: 170.18 cm (09/22/15 2:21 PM) Height 98.4 DegF (09/29/15 4:00 PM) 97.8 DegF (09/29/15 12:00 PM) 98.2 DegF (09/29/15 8:00 AM) Temperature Oral [96.4-99.1 DegF] 117/72 mmHg (09/29/15 4:00 PM) 130/78 mmHg (09/29/15 8:00 AM) Blood Pressure [90-140/60-90 mmHg] 102 mmHg 1 (09/29/15 12:00 PM) Systolic Blood Pressure [90-140 mmHg] 57 mmHg 2 *LOW* (09/29/15 12:00 PM) Diastolic Blood Pressure [60-90 mmHg] 18 BRMIN (09/29/15 4:00 PM) 18 BRMIN (09/29/15 12:00 PM) 18 BRMIN (09/29/15 8:00 AM) Respiratory Rate [14-20 BRMIN] 86 bpm (09/29/15 4:00 PM) 77 bpm 3 (09/29/15 12:00 PM) 68 bpm (09/29/15 8:00 AM) Peripheral Pulse Rate [60-100 bpm] 108.864 kg (09/22/15 2:21 PM) Weight 37.59 m2 (09/22/15 2:21 PM) Body Mass Index 1Result Comment: wrong pt 2Result Comment: wrong pt 3Result Comment: wrong pt Problem List Condition Effective Dates Status Health Status Informant Acquired blindness, 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) Anxiety(Confirmed) Active Arrhythmia(Confirmed Active ) Arthritis(Confirmed) Active Back pain(Confirmed) Resolved Benign lipomatous Resolved tumor(Confirmed) Biopsy of lung using Resolved computed tomography (CT) guidance(Confirmed) COPD(Confirmed) Active Depression(Confirmed Active ) Diabetes(Confirmed) Active GERD Resolved (gastroesophageal reflux disease)(Confirmed) Hand Resolved numbness(Confirmed) Hard of Resolved hearing(Confirmed) Heart Resolved palpitations(Confirm ed) Hypercholesteremia(C Active onfirmed) Lung mass(Confirmed) Active 1lt eye blindness Allergies, Adverse Reactions, Alerts Substance Reaction Severity Status sulfa drugs Active Surgical Tape Active Medications acetaminophen (ANES) Route: IV, Drug form: INJ, ONCE, Stop date: 09/24/15 13:22:00 CDT Start Date: 09/24/15 Stop Date: 09/24/15 Status: Completed acetaminophen-hydrocodone 325 mg-5 mg oral tablet 1 tab, Route: PO, Drug Form: TAB, Dosing Weight 108.864, kg, Q6H, PRN Pain Score 1-3, Start date: 09/26/15 14:49:00 CDT, Duration: 30 day, Stop date: 10/26/15 1 4:48:00 CDT Start Date: 09/26/15 Stop Date: 09/26/15 Status: Deleted albumin human 5% intravenous solution 25 gm, 500 mL, 250 ml/hr, Route: IV, Drug Form: INJ, Dosing Weight 108.864, kg, ONCE, Start date: 09/24/15 18:03:00 CDT, Stop date: 09/24/15 18:03:00 CDT Notes: LOT#: Mfg: (Same as: Albuminar)"blood product derivative"WASTE: F/P - Red; E -Red MEDICATION WASTE Product Size: 25 gmProduct Wasted: ___ gm Start Date: 09/24/15 Stop Date: 09/24/15 Status: Completed albumin human 5% intravenous solution 25 gm, 500 mL, 250 ml/hr, Route: IV, Drug Form: INJ, Dosing Weight 108.864, kg, ONCE, Start date: 09/24/15 16:39:00 CDT, Stop date: 09/24/15 16:39:00 CDT Notes: LOT#: Mfg: (Same as: Albuminar)"blood product derivative"WASTE: F/P - Red; E -Red MEDICATION WASTE Product Size: 25 gmProduct Wasted: ___ gm Start Date: 09/24/15 Stop Date: 09/24/15 Status: Completed albuterol 0.083% inhalation solution 2.49 mg, 3 mL, Route: NEB, Drug form: SOLN, RQ4H, Dosing Weight 108.864, kg, Sta rt date: 09/24/15 23:00:00 CDT, Duration: 30 day, Stop date: 10/24/15 19:00:00 C DT Notes: SEE RT DOCUMENTATION (Same as: Ry) Start Date: 09/24/15 Stop Date: 09/27/15 Status: Discontinued albuterol 0.083% inhalation solution 2.5 mg, 3.01 mL, Route: NEB, Drug form: SOLN, RQ4H, Dosing Weight 108.864, kg, S tart date: 09/27/15 7:00:00 CDT, Duration: 30 day, Stop date: 10/27/15 3:00:00 C DT Notes: SEE RT DOCUMENTATION (Same as: Proventil) Start Date: 09/27/15 Stop Date: 09/29/15 Status: Discontinued albuterol 0.083% inhalation solution 2.49 mg, Route: NEB, Q20Min, Dosing Weight 108.864, kg, PRN Wheezing, Priority: STAT, Start date: 09/24/15 14:30:00 CDT, Duration: 30 day, Stop date: 10/24/15 1 4:29:00 CDT Start Date: 09/24/15 Stop Date: 09/24/15 Status: Discontinued ALPRAZOLam 0.25 mg oral tablet 0.25 mg=1 tab, PO, BID, PRN anxiety, stress, # 20 tab, 0 Refill(s) Start Date: 09/22/15 Stop Date: 10/02/15 Status: Ordered Ancef 1 gm, 100 mL, Route: IVPB, Drug form: INJ, ABXQ6H, Dosing Weight 108.864, kg, St art date: 09/24/15 18:00:00 CDT, Duration: 1 day, Stop date: 09/25/15 14:00:00 C DT Start Date: 09/24/15 Stop Date: 09/25/15 Status: Completed Aspirin Low Dose 81 mg oral tablet =1 tab, PO, Daily, # 100 tab, 3 Refill(s) Start Date: 09/22/15 Status: Ordered cefOXitin (ANES) Route: IV, Drug form: INJ, ONCE, Stop date: 09/24/15 10:43:00 CDT Start Date: 09/24/15 Stop Date: 09/24/15 Status: Completed cefOXitin (SCIP) 1 gm, Route: IVPB, Drug form: INJ, ABXQ6H, Dosing Weight 108.864, kg, Start date : 09/24/15 21:00:00 CDT, Duration: 24 hr, Stop date: 09/25/15 15:00:00 CDT Start Date: 09/24/15 Stop Date: 09/24/15 Status: Deleted Dextrose 5% with 0.9% NaCl IV 1000 mL 1,000 mL, Rate: 125 ml/hr, Infuse over: 8 hr, Route: IV, Dosing Weight 108.864 k g, Total Volume: 1,000, Start date: 09/24/15 14:30:00 CDT, Duration: 30 day, Sto p date: 10/24/15 14:29:00 CDT Start Date: 09/24/15 Stop Date: 09/24/15 Status: Discontinued Dextrose 5% with 0.9% NaCl IV 1000 mL 1,000 mL, Rate: 25 ml/hr, Infuse over: 40 hr, Route: IV, Dosing Weight 108.864 k g, Total Volume: 1,000, Start date: 09/24/15 7:54:00 CDT, Duration: 30 day, Stop date: 10/24/15 7:53:00 CDT Start Date: 09/24/15 Stop Date: 09/24/15 Status: Discontinued Dextrose 50% Syringe 25 gm, 50 mL, Route: IVP, Drug Form: INJ, Dosing Weight 108.864, kg, PRN, PRN Bl ood Glucose Results, Start date: 09/28/15 15:45:00 CDT, Duration: 30 day, Stop d ate: 10/28/15 15:44:00 CDT Start Date: 09/28/15 Stop Date: 09/29/15 Status: Discontinued Dextrose 50% Syringe 12.5 gm, 25 mL, Route: IVP, Drug Form: INJ, Dosing Weight 108.864, kg, PRN, PRN Blood Glucose Results, Start date: 09/28/15 15:45:00 CDT, Duration: 30 day, Stop date: 10/28/15 15:44:00 CDT Start Date: 09/28/15 Stop Date: 09/29/15 Status: Discontinued Dextrose 50% Syringe 12.5 gm, 25 mL, Route: IVP, Drug Form: INJ, Dosing Weight 108.864, kg, PRN, PRN Blood Glucose Results, Start date: 09/24/15 19:04:00 CDT, Duration: 30 day, Stop date: 10/24/15 19:03:00 CDT Start Date: 09/24/15 Stop Date: 09/28/15 Status: Discontinued Dextrose 50% Syringe 25 gm, 50 mL, Route: IVP, Drug Form: INJ, Dosing Weight 108.864, kg, PRN, PRN Bl ood Glucose Results, Start date: 09/24/15 19:04:00 CDT, Duration: 30 day, Stop d ate: 10/24/15 19:03:00 CDT Start Date: 09/24/15 Stop Date: 09/28/15 Status: Discontinued diphenhydrAMINE 12.5 mg, Route: IVP, Drug form: INJ, Q6H, Dosing Weight 108.864, kg, PRN Itching , Start date: 09/24/15 14:30:00 CDT, Duration: 30 day, Stop date: 10/24/15 14:29 :00 CDT Start Date: 09/24/15 Stop Date: 09/24/15 Status: Discontinued doxepin 25 mg oral capsule 25 mg=1 cap, PO, Daily, # 90 cap, 0 Refill(s) Start Date: 09/22/15 Status: Ordered doxepin 25 mg oral capsule 25 mg, 1 cap, Route: PO, Drug form: CAP, Daily, Dosing Weight 108.864, kg, Start date: 09/25/15 9:00:00 CDT, Duration: 30 day, Stop date: 10/24/15 20:00:00 CDT Notes: (Same as: SINEquan) Start Date: 09/25/15 Stop Date: 09/29/15 Status: Discontinued ePHEDrine 50 mg, Route: IM, ONCE, Dosing Weight 108.864, kg, Start date: 09/24/15 16:24:00 CDT, Stop date: 09/24/15 16:24:00 CDT Start Date: 09/24/15 Stop Date: 09/24/15 Status: Completed fentaNYL 50 microgram, 1 mL, Route: IV, Drug form: INJ, ONCE, Dosing Weight 108.864, kg, Start date: 09/25/15 1:35:00 CDT, Stop date: 09/25/15 1:35:00 CDT Notes: (Same as: Sublimaze) Preservative free. Start Date: 09/25/15 Stop Date: 09/25/15 Status: Completed fentaNYL 25 microgram, Route: IVP, Q5Min, Dosing Weight 108.864, kg, PRN Pain Score 4-6, Start date: 09/24/15 14:30:00 CDT, Duration: 4 doses or times, Stop date: d # of times Start Date: 09/24/15 Stop Date: 09/24/15 Status: Completed fentaNYL 50 microgram, 1 mL, Route: IV, Drug form: INJ, Q30Min, Dosing Weight 108.864, kg , PRN Pain Score 6-10, Priority: Routine, Start date: 09/25/15 1:36:00 CDT, Dura tion: 30 day, Stop date: 10/25/15 1:35:00 CDT Notes: (Same as: Sublimaze) Preservative free. Start Date: 09/25/15 Stop Date: 09/29/15 Status: Discontinued fentaNYL (ANES) Route: IV, Drug form: INJ, ONCE, Stop date: 09/24/15 10:38:00 CDT Start Date: 09/24/15 Stop Date: 09/24/15 Status: Completed fentaNYL - one time ICU bolus dose 50 microgram, 1 mL, Route: IVP, Drug form: INJ, ONCE, Dosing Weight 108.864, kg, Start date: 09/25/15 0:09:00 CDT, Stop date: 09/25/15 0:09:00 CDT Notes: (Same as: Sublimaze) Preservative free. Start Date: 09/25/15 Stop Date: 09/25/15 Status: Completed flumazenil 0.2 mg, Route: IVP, PRN, Dosing Weight 108.864, kg, PRN Benzodiazepine Reversal, Initial dose, Start date: 09/24/15 14:30:00 CDT, Duration: 30 day, Stop date: 0 10/24/15 14:29:00 CDT Start Date: 09/24/15 Stop Date: 09/24/15 Status: Discontinued gabapentin 300 mg oral capsule 300 mg=1 cap, PO, Daily, # 90 cap, 0 Refill(s) Start Date: 09/22/15 Status: Ordered gabapentin 300 mg oral capsule 300 mg, 1 cap, Route: PO, Drug form: CAP, Daily, Dosing Weight 108.864, kg, Star t date: 09/25/15 9:00:00 CDT, Duration: 30 day, Stop date: 10/24/15 20:00:00 CDT Notes: (Same as: Neurontin) Start Date: 09/25/15 Stop Date: 09/29/15 Status: Discontinued glucagon 1 mg, Route: IM, Drug form: PDR/INJ, PRN, Dosing Weight 108.864, kg, PRN Blood G lucose Results, Start date: 09/28/15 15:45:00 CDT, Duration: 30 day, Stop date: 10/28/15 15:44:00 CDT Start Date: 09/28/15 Stop Date: 09/29/15 Status: Discontinued glucagon 1 mg, Route: IM, Drug form: PDR/INJ, PRN, Dosing Weight 108.864, kg, PRN Blood G lucose Results, Start date: 09/24/15 19:04:00 CDT, Duration: 30 day, Stop date: 10/24/15 19:03:00 CDT Start Date: 09/24/15 Stop Date: 09/28/15 Status: Discontinued heparin 5,000 unit, Route: SUB-Q, Q12H, Dosing Weight 108.864, kg, Start date: 09/25/15 8:00:00 CDT, Duration: 30 day, Stop date: 10/24/15 21:00:00 CDT Start Date: 09/25/15 Stop Date: 09/24/15 Status: Deleted heparin 5,000 unit, 1 mL, Route: SUB-Q, Drug form: INJ, Q12H, Dosing Weight 108.864, kg, Start date: 09/25/15 9:00:00 CDT, Duration: 30 day, Stop date: 10/24/15 21:00:00 CDT Notes: porcine heparin Start Date: 09/25/15 Stop Date: 09/29/15 Status: Discontinued heparin 5000 units/mL injectable solution 5,000 unit, Route: SUB-Q, Drug form: INJ, ONCALL, Dosing Weight 108.864, kg, Sta rt date: 09/24/15 8:00:00 CDT, Duration: 30 day, Stop date: 10/24/15 7:59:00 CDT Start Date: 09/24/15 Stop Date: 09/24/15 Status: Completed Hextend 500 ml, Route: IVPB, Dosing Weight 108.864, kg, ONCE, Start date: 09/24/15 15:31 :00 CDT, Duration: 1 doses or times, Stop date: 09/24/15 15:31:00 CDT Start Date: 09/24/15 Stop Date: 09/24/15 Status: Completed Hextend (ANES) (ANES) Route: IV, Drug Form: INJ, Start date: 09/24/15 10:15:00 CDT, Stop date: 6 11:15:00 CDT Start Date: 09/24/15 Stop Date: 09/24/15 Status: Completed hydromorphone 0.5 mg, Route: IVP, Q5Min, Dosing Weight 108.864, kg, PRN Pain Score 7-10, Start date: 09/24/15 14:30:00 CDT, Duration: 4 doses or times, Stop date: Limited # of times Start Date: 09/24/15 Stop Date: 09/24/15 Status: Discontinued insulin aspart 8 unit, 0.08 mL, Route: SUB-Q, Drug form: SOLN, TID-Before Meals, Dosing Weight 108.864, kg, PRN Blood Glucose Results, Start date: 09/28/15 15:45:00 CDT, Durat ion: 30 day, Stop date: 10/28/15 15:44:00 CDT Notes: Roll in palms of hands gently; Do not shake vigorously. (Same as: Yaneth Allison)"single patient use only"WASTE: F/P - Black; E - Municipal Trash Bin Stable f or 28 days at room temperature.Expires in days from Date Start Date: 09/28/15 Stop Date: 09/29/15 Status: Discontinued insulin aspart 10 unit, 0.1 mL, Route: SUB-Q, Drug form: SOLN, TID-Before Meals, Dosing Weight 108.864, kg, PRN Blood Glucose Results, Start date: 09/28/15 15:45:00 CDT, Durat ion: 30 day, Stop date: 10/28/15 15:44:00 CDT Notes: Roll in palms of hands gently; Do not shake vigorously. (Same as: Yaneth Allison)"single patient use only"WASTE: F/P - Black; E - Municipal Trash Bin Stable f or 28 days at room temperature.Expires in days from Date Start Date: 09/28/15 Stop Date: 09/29/15 Status: Discontinued insulin aspart 4 unit, 0.04 mL, Route: SUB-Q, Drug form: SOLN, TID-Before Meals, Dosing Weight 108.864, kg, PRN Blood Glucose Results, Start date: 09/28/15 15:45:00 CDT, Durat ion: 30 day, Stop date: 10/28/15 15:44:00 CDT Notes: Roll in palms of hands gently; Do not shake vigorously. (Same as: NovoLO G)"single patient use only"WASTE: F/P - Black; E - Municipal Trash Bin Stable f or 28 days at room temperature.Expires in days from Date Start Date: 09/28/15 Stop Date: 09/29/15 Status: Discontinued insulin aspart 6 unit, 0.06 mL, Route: SUB-Q, Drug form: SOLN, TID-Before Meals, Dosing Weight 108.864, kg, PRN Blood Glucose Results, Start date: 09/28/15 15:45:00 CDT, Durat ion: 30 day, Stop date: 10/28/15 15:44:00 CDT Notes: Roll in palms of hands gently; Do not shake vigorously. (Same as: NovoLINA G)"single patient use only"WASTE: F/P - Black; E - Municipal Trash Bin Stable f or 28 days at room temperature.Expires in days from Date Start Date: 09/28/15 Stop Date: 09/29/15 Status: Discontinued insulin aspart 2 unit, 0.02 mL, Route: SUB-Q, Drug form: SOLN, TID-Before Meals, Dosing Weight 108.864, kg, PRN Blood Glucose Results, Start date: 09/28/15 15:45:00 CDT, Durat ion: 30 day, Stop date: 10/28/15 15:44:00 CDT Notes: Roll in palms of hands gently; Do not shake vigorously. (Same as: NovoLINA G)"single patient use only"WASTE: F/P - Black; E - Municipal Trash Bin Stable f or 28 days at room temperature.Expires in days from Date Start Date: 09/28/15 Stop Date: 09/29/15 Status: Discontinued insulin aspart 3 unit, 0.03 mL, Route: SUB-Q, Drug form: SOLN, Bedtime, Dosing Weight 108.864, kg, PRN Blood Glucose Results, Start date: 09/28/15 15:45:00 CDT, Duration: 30 d ay, Stop date: 10/28/15 15:44:00 CDT Notes: Roll in palms of hands gently; Do not shake vigorously. (Same as: Yaneth Allison)"single patient use only"WASTE: F/P - Black; E - Municipal Trash Bin Stable f or 28 days at room temperature.Expires in days from Date Start Date: 09/28/15 Stop Date: 09/29/15 Status: Discontinued insulin aspart 4 unit, 0.04 mL, Route: SUB-Q, Drug form: SOLN, Bedtime, Dosing Weight 108.864, kg, PRN Blood Glucose Results, Start date: 09/28/15 15:45:00 CDT, Duration: 30 d ay, Stop date: 10/28/15 15:44:00 CDT Notes: Roll in palms of hands gently; Do not shake vigorously. (Same as: Yaneth Allisno)"single patient use only"WASTE: F/P - Black; E - Municipal Trash Bin Stable f or 28 days at room temperature.Expires in days from Date Start Date: 09/28/15 Stop Date: 09/29/15 Status: Discontinued insulin aspart 1 unit, 0.01 mL, Route: SUB-Q, Drug form: SOLN, Bedtime, Dosing Weight 108.864, kg, PRN Blood Glucose Results, Start date: 09/28/15 15:45:00 CDT, Duration: 30 d ay, Stop date: 10/28/15 15:44:00 CDT Notes: Roll in palms of hands gently; Do not shake vigorously. (Same as: Yaneth Allison)"single patient use only"WASTE: F/P - Black; E - Municipal Trash Bin Stable f or 28 days at room temperature.Expires in days from Date Start Date: 09/28/15 Stop Date: 09/29/15 Status: Discontinued insulin aspart 2 unit, 0.02 mL, Route: SUB-Q, Drug form: SOLN, Bedtime, Dosing Weight 108.864, kg, PRN Blood Glucose Results, Start date: 09/28/15 15:45:00 CDT, Duration: 30 d ay, Stop date: 10/28/15 15:44:00 CDT Notes: Roll in palms of hands gently; Do not shake vigorously. (Same as: Yaneth Allison)"single patient use only"WASTE: F/P - Black; E - Municipal Trash Bin Stable f or 28 days at room temperature.Expires in days from Date Start Date: 09/28/15 Stop Date: 09/29/15 Status: Discontinued insulin aspart 4 unit, 0.04 mL, Route: SUB-Q, Drug form: SOLN, Bedtime, Dosing Weight 108.864, kg, PRN Blood Glucose Results, Start date: 09/24/15 19:04:00 CDT, Duration: 30 d ay, Stop date: 10/24/15 19:03:00 CDT Notes: Roll in palms of hands gently; Do not shake vigorously. (Same as: Yaneth Allison)"single patient use only"WASTE: F/P - Black; E - Municipal Trash Bin Stable f or 28 days at room temperature.Expires in days from Date Start Date: 09/24/15 Stop Date: 09/28/15 Status: Discontinued insulin aspart 2 unit, 0.02 mL, Route: SUB-Q, Drug form: SOLN, Bedtime, Dosing Weight 108.864, kg, PRN Blood Glucose Results, Start date: 09/24/15 19:04:00 CDT, Duration: 30 d ay, Stop date: 10/24/15 19:03:00 CDT Notes: Roll in palms of hands gently; Do not shake vigorously. (Same as: Yaneth Allison)"single patient use only"WASTE: F/P - Black; E - Municipal Trash Bin Stable f or 28 days at room temperature.Expires in days from Date Start Date: 09/24/15 Stop Date: 09/28/15 Status: Discontinued insulin aspart 3 unit, 0.03 mL, Route: SUB-Q, Drug form: SOLN, Bedtime, Dosing Weight 108.864, kg, PRN Blood Glucose Results, Start date: 09/24/15 19:04:00 CDT, Duration: 30 d ay, Stop date: 10/24/15 19:03:00 CDT Notes: Roll in palms of hands gently; Do not shake vigorously. (Same as: Yaneth Allison)"single patient use only"WASTE: F/P - Black; E - Municipal Trash Bin Stable f or 28 days at room temperature.Expires in days from Date Start Date: 09/24/15 Stop Date: 09/28/15 Status: Discontinued insulin aspart 1 unit, 0.01 mL, Route: SUB-Q, Drug form: SOLN, Bedtime, Dosing Weight 108.864, kg, PRN Blood Glucose Results, Start date: 09/24/15 19:04:00 CDT, Duration: 30 d ay, Stop date: 10/24/15 19:03:00 CDT Notes: Roll in palms of hands gently; Do not shake vigorously. (Same as: Yaneth Allison)"single patient use only"WASTE: F/P - Black; E - Municipal Trash Bin Stable f or 28 days at room temperature.Expires in days from Date Start Date: 09/24/15 Stop Date: 09/28/15 Status: Discontinued insulin aspart 4 unit, 0.04 mL, Route: SUB-Q, Drug form: SOLN, TID-Before Meals, Dosing Weight 108.864, kg, PRN Blood Glucose Results, Start date: 09/24/15 19:04:00 CDT, Durat ion: 30 day, Stop date: 10/24/15 19:03:00 CDT Notes: Roll in palms of hands gently; Do not shake vigorously. (Same as: Yaneth Allison)"single patient use only"WASTE: F/P - Black; E - Municipal Trash Bin Stable f or 28 days at room temperature.Expires in days from Date Start Date: 09/24/15 Stop Date: 09/28/15 Status: Discontinued insulin aspart 6 unit, 0.06 mL, Route: SUB-Q, Drug form: SOLN, TID-Before Meals, Dosing Weight 108.864, kg, PRN Blood Glucose Results, Start date: 09/24/15 19:04:00 CDT, Durat ion: 30 day, Stop date: 10/24/15 19:03:00 CDT Notes: Roll in palms of hands gently; Do not shake vigorously. (Same as: Yaneth Allison)"single patient use only"WASTE: F/P - Black; E - Municipal Trash Bin Stable f or 28 days at room temperature.Expires in days from Date Start Date: 09/24/15 Stop Date: 09/28/15 Status: Discontinued insulin aspart 8 unit, 0.08 mL, Route: SUB-Q, Drug form: SOLN, TID-Before Meals, Dosing Weight 108.864, kg, PRN Blood Glucose Results, Start date: 09/24/15 19:04:00 CDT, Durat ion: 30 day, Stop date: 10/24/15 19:03:00 CDT Notes: Roll in palms of hands gently; Do not shake vigorously. (Same as: Yaneth Allison)"single patient use only"WASTE: F/P - Black; E - Municipal Trash Bin Stable f or 28 days at room temperature.Expires in days from Date Start Date: 09/24/15 Stop Date: 09/28/15 Status: Discontinued insulin aspart 10 unit, 0.1 mL, Route: SUB-Q, Drug form: SOLN, TID-Before Meals, Dosing Weight 108.864, kg, PRN Blood Glucose Results, Start date: 09/24/15 19:04:00 CDT, Durat ion: 30 day, Stop date: 10/24/15 19:03:00 CDT Notes: Roll in palms of hands gently; Do not shake vigorously. (Same as: Yaneth Allison)"single patient use only"WASTE: F/P - Black; E - Municipal Trash Bin Stable f or 28 days at room temperature.Expires in days from Date Start Date: 09/24/15 Stop Date: 09/28/15 Status: Discontinued insulin aspart 2 unit, 0.02 mL, Route: SUB-Q, Drug form: SOLN, TID-Before Meals, Dosing Weight 108.864, kg, PRN Blood Glucose Results, Start date: 09/24/15 19:04:00 CDT, Durat ion: 30 day, Stop date: 10/24/15 19:03:00 CDT Notes: Roll in palms of hands gently; Do not shake vigorously. (Same as: Yaneth Allison)"single patient use only"WASTE: F/P - Black; E - Municipal Trash Bin Stable f or 28 days at room temperature.Expires in days from Date Start Date: 09/24/15 Stop Date: 09/28/15 Status: Discontinued Insulin regular 5 unit, Route: IVP, ONCE, Dosing Weight 108.864, kg, Start date: 09/24/15 16:43: 00 CDT, Stop date: 09/24/15 16:43:00 CDT Start Date: 09/24/15 Stop Date: 09/24/15 Status: Completed Invokana 100 mg oral tablet 100 mg=1 tab, PO, Before Breakfast, # 30 tab, 0 Refill(s) Start Date: 09/22/15 Status: Ordered Lactated Ringers Injection IV (ANES) (ANES) Route: IV, Total Volume: 1,000, Start date: 09/24/15 9:35:00 CDT, Stop date: 04/29 10:35:00 CDT Start Date: 09/24/15 Stop Date: 09/24/15 Status: Completed Lactated Ringers Injection IV 1000 mL 1,000 mL, Rate: 25 ml/hr, Infuse over: 40 hr, Route: IV, Dosing Weight 108.864 k g, Total Volume: 1,000, Start date: 09/24/15 7:54:00 CDT, Duration: 30 day, Stop date: 10/24/15 7:53:00 CDT Start Date: 09/24/15 Stop Date: 09/24/15 Status: Discontinued Lactated Ringers IV 1,000 mL 1,000 mL, Rate: 125 ml/hr, Infuse over: 8 hr, Route: IV, Dosing Weight 108.864 k g, Total Volume: 1,000, Start date: 09/24/15 17:01:00 CDT, Duration: 30 day, Sto p date: 10/24/15 17:00:00 CDT Start Date: 09/24/15 Stop Date: 09/24/15 Status: Discontinued Lasix 20 mg, 2 mL, Route: IV, Drug form: INJ, ONCE, Dosing Weight 108.864, kg, Priorit y: NOW, Start date: 09/26/15 8:37:00 CDT, Stop date: 09/26/15 8:37:00 CDT Notes: (Same as: Lasix) Start Date: 09/26/15 Stop Date: 09/26/15 Status: Completed Lasix 20 mg, 2 mL, Route: IV, Drug form: INJ, ONCE, Dosing Weight 108.864, kg, PRN Blo od Transfusion, Start date: 09/28/15 9:27:00 CDT, Stop date: 09/28/15 9:27:00 CD T Notes: (Same as: Lasix) Start Date: 09/28/15 Stop Date: 09/28/15 Status: Completed Lasix 20 mg, 2 mL, Route: IVP, Drug form: INJ, ONCE, Dosing Weight 108.864, kg, Start date: 09/25/15 16:22:00 CDT, Stop date: 09/25/15 16:22:00 CDT Notes: (Same as: Lasix) Start Date: 09/25/15 Stop Date: 09/25/15 Status: Completed Lasix 20 mg, 2 mL, Route: IV, Drug form: INJ, ONCE, Dosing Weight 108.864, kg, Priorit y: STAT, Start date: 09/25/15 22:19:00 CDT, Stop date: 09/25/15 22:19:00 CDT Notes: (Same as: Lasix) Start Date: 09/25/15 Stop Date: 09/25/15 Status: Completed Lasix 20 mg, 2 mL, Route: IV, Drug form: INJ, Daily, Dosing Weight 108.864, kg, Start date: 09/26/15 9:00:00 CDT, Duration: 30 day, Stop date: 10/25/15 9:00:00 CDT Notes: (Same as: Lasix) Start Date: 09/26/15 Stop Date: 09/25/15 Status: Canceled Lasix 20 mg, 2 mL, Route: IVP, Drug form: INJ, Q6H, Dosing Weight 108.864, kg, Start d ate: 09/28/15 16:54:00 CDT, Stop date: 09/28/15 23:00:00 CDT Notes: (Same as: Lasix) Start Date: 09/28/15 Stop Date: 09/28/15 Status: Completed Levophed 8 mg in 250 mL (Titrate.) IV 8 mg + Dextrose 5% in Water IV 242 mL 8 mg, 8 mL, Rate: Titrate, Start Dose: 5 microgram/min, Titration: 2 microgram/m in every 2-5 minutes, Goal(s): MAP >=65 mmHg, Max Dose: 70 microgram/min, Route: IV, Dosing Weight 108.864 kg, Total Volume: 250, Start date: 09/24/15 16:00:00 CDT, Durat... Notes: Not for direct administration - DILUTE. Protect from light. (Same as:Levo phed). Administer by either central venous catheter or peripherally-inserted jamaal tral catheter (PICC) line. Start Date: 09/24/15 Stop Date: 09/26/15 Status: Discontinued lisinopril 5 mg oral tablet 5 mg=1 tab, PO, Daily, # 30 tab, 0 Refill(s) Start Date: 09/22/15 Status: Ordered magnesium sulfate + Sodium Chloride 0.9% IV 100 mL 3 gm, 6 mL, Route: IVPB, ONCE, Start date: 09/25/15 10:02:00 CDT, Stop date: 10:02:00 CDT Notes: (Same as: MgSO4)WASTE: F/P - Sink; E - [employer] Trash Bin [employer] N WASTE Product Size: 1000 mgProduct Wasted: ___ mg Start Date: 09/25/15 Stop Date: 09/25/15 Status: Completed magnesium sulfate 2 gm in Water 50 ml 3 gm, Route: IV, ONCE, Dosing Weight 108.864, kg, Start date: 09/25/15 9:42:00 C DT, Stop date: 09/25/15 9:42:00 CDT Start Date: 09/25/15 Stop Date: 09/25/15 Status: Deleted meperidine 12.5 mg, Route: IVP, Q30Min, Dosing Weight 108.864, kg, PRN Other -See Comment, For shivering, Start date: 09/24/15 14:30:00 CDT, Duration: 2 doses or times, St op date: Limited # of times Start Date: 09/24/15 Stop Date: 09/24/15 Status: Discontinued midazolam (ANES) Route: IV, Drug form: SOLN, ONCE, Stop date: 09/24/15 10:38:00 CDT Start Date: 09/24/15 Stop Date: 09/24/15 Status: Completed Milk of Magnesia 30 ml, Route: PO, Drug Form: SUSP, Dosing Weight 108.864, kg, Bedtime, PRN as ne eded for constipation, Start date: 09/27/15 14:48:00 CDT, Duration: 30 day, Stop date: 10/27/15 14:47:00 CDT Notes: (Same as: Milk of Magnesia, MOM) Start Date: 09/27/15 Stop Date: 09/29/15 Status: Discontinued morphine 1 mg/ml FLOOR DIRECTOR (30 mg/30 mL) INJ Syringe 30 mg 30 mg, 30 mL, Route: IV, FLOOR DIRECTOR Dose: 1 mg, FLOOR DIRECTOR Lockout: 10 minutes, Continuous Ba robert Rate: 0 mg, 4 Hour Limit (In MG): 24, Drug Form: INJ, Continuous, Start date : 09/24/15 17:30:00 CDT, Duration: 30 day, Stop date: 10/24/15 17:29:00 CDT Notes: Dose: Delay: Basal rate: 4hr limit:( Same as:Rolf-Jenifer) Start Date: 09/24/15 Stop Date: 09/24/15 Status: Voided With Results morphine 1 mg/ml FLOOR DIRECTOR (30 mg/30 mL) INJ Syringe 30 mg 30 mg, 30 mL, Route: IV, FLOOR DIRECTOR Dose: 1 mg, FLOOR DIRECTOR Lockout: 10 minutes, Continuous Ba robert Rate: 0 mg, 4 Hour Limit (In MG): 24, Drug Form: INJ, Continuous, Pain, Star t date: 09/24/15 20:54:00 CDT, Duration: 30 day, Stop date: 10/24/15 20:53:00 CD T Notes: Dose: Delay: Basal rate: 4hr limit:( Same as:Katelynni-Jemachelle) Start Date: 09/24/15 Stop Date: 09/26/15 Status: Discontinued morphine Sulfate 4 mg, 2 mL, Route: IV, Drug form: INJ, Q4H, Dosing Weight 108.864, kg, PRN Pain Score 4-6, Start date: 09/26/15 8:36:00 CDT, Duration: 30 day, Stop date: 8:35:00 CDT Notes: (Same as:MORPhine Sulfate) Start Date: 09/26/15 Stop Date: 09/29/15 Status: Discontinued morphine Sulfate 3 mg, 1.5 mL, Route: IVP, Drug form: INJ, Q3H, Dosing Weight 108.864, kg, PRN Pa in Score 7-10, Start date: 09/25/15 10:23:00 CDT, Duration: 30 day, Stop date: 0 10/25/15 10:22:00 CDT Notes: (Same as:MORPhine Sulfate) Start Date: 09/25/15 Stop Date: 09/29/15 Status: Discontinued morphine Sulfate 4 mg, 2 mL, Route: IVP, Drug form: INJ, Q4H, Dosing Weight 108.864, kg, PRN Pain Score 1-5, Start date: 09/24/15 20:54:00 CDT, Duration: 30 day, Stop date: 10/13 05/30 20:53:00 CDT Notes: (Same as:MORPhine Sulfate) Start Date: 09/24/15 Stop Date: 09/27/15 Status: Discontinued morphine Sulfate 4 mg, 2 mL, Route: IV, Drug form: INJ, ONCALL, Dosing Weight 108.864, kg, Start date: 09/27/15 9:00:00 CDT, Duration: 30 day, Stop date: 10/27/15 8:59:00 CDT Notes: (Same as:MORPhine Sulfate) Start Date: 09/27/15 Stop Date: 09/27/15 Status: Completed morphine Sulfate 3 mg, 1.5 mL, Route: IVP, Drug form: INJ, ONCE, Dosing Weight 108.864, kg, Start date: 09/25/15 7:44:00 CDT, Stop date: 09/25/15 7:44:00 CDT Notes: (Same as:MORPhine Sulfate) Start Date: 09/25/15 Stop Date: 09/25/15 Status: Completed naloxone 0.04 mg, 0.1 mL, Route: IVP, Drug form: INJ, Q2MIN, Dosing Weight 108.864, kg, P RN Narcotic Reversal, Start date: 09/24/15 17:04:00 CDT, Duration: 30 day, Stop date: 10/24/15 17:03:00 CDT Notes: Same as Narcan Start Date: 09/24/15 Stop Date: 09/24/15 Status: Deleted naloxone 0.04 mg, 0.1 mL, Route: IVP, Drug form: INJ, Q2MIN, Dosing Weight 108.864, kg, P RN Narcotic Reversal, Start date: 09/24/15 20:54:00 CDT, Duration: 30 day, Stop date: 10/24/15 20:53:00 CDT Notes: Same as Narcan Start Date: 09/24/15 Stop Date: 09/26/15 Status: Discontinued naloxone 0.04 mg, Route: IVP, Q2MIN, Dosing Weight 108.864, kg, PRN Narcotic Reversal, St art date: 09/24/15 14:30:00 CDT, Duration: 8 doses or times, Stop date: Limited # of times Start Date: 09/24/15 Stop Date: 09/24/15 Status: Discontinued Normosol-R PH 7.4 1000 mL 1,000 mL, Rate: 25 ml/hr, Infuse over: 40 hr, Route: IV, Dosing Weight 108.864 k g, Total Volume: 1,000, Start date: 09/24/15 7:54:00 CDT, Duration: 30 day, Stop date: 10/24/15 7:53:00 CDT Start Date: 09/24/15 Stop Date: 09/24/15 Status: Discontinued omeprazole 40 mg, Route: PO, Drug form: DRC, Daily, Dosing Weight 108.864, kg, Start date: 09/25/15 9:00:00 CDT, Duration: 30 day, Stop date: 10/24/15 9:00:00 CDT Start Date: 09/25/15 Stop Date: 09/24/15 Status: Deleted omeprazole 40 mg oral delayed release capsule 40 mg=1 cap, PO, Daily, PRN, # 30 cap, 0 Refill(s) Start Date: 09/22/15 Status: Ordered ondansetron 4 mg, Route: IVP, ONCE, Dosing Weight 108.864, kg, PRN Nausea & Vomiting, Start date: 09/24/15 14:30:00 CDT Start Date: 09/24/15 Stop Date: 09/24/15 Status: Completed ondansetron (ANES) Route: IV, Drug form: INJ, ONCE, Stop date: 09/24/15 13:24:00 CDT Start Date: 09/24/15 Stop Date: 09/24/15 Status: Completed oxyCODONE 10 mg, Route: PO, Drug form: TAB, Q4H, Dosing Weight 108.864, kg, PRN Pain Score 7-10, Start date: 09/24/15 14:30:00 CDT, Duration: 30 day, Stop date: 10/24/15 14:29:00 CDT Start Date: 09/24/15 Stop Date: 09/24/15 Status: Discontinued oxyCODONE 5 mg, Route: PO, Drug form: TAB, Q4H, Dosing Weight 108.864, kg, PRN Pain Score 4-6, Start date: 09/24/15 14:30:00 CDT, Duration: 30 day, Stop date: 10/24/15 14 :29:00 CDT Start Date: 09/24/15 Stop Date: 09/24/15 Status: Discontinued Phenergan 12.5 mg, Route: IVPB, ONCE, Dosing Weight 108.864, kg, Start date: 09/24/15 18:2 7:00 CDT, Stop date: 09/24/15 18:27:00 CDT Start Date: 09/24/15 Stop Date: 09/24/15 Status: Completed Phenergan + sodium chloride 20 mL 12.5 mg, 0.5 mL, Route: IV Central, Q12H, Dosing Weight 108.864, kg, PRN Nausea & Vomiting, Start date: 09/25/15 8:50:00 CDT, Duration: 30 day, Stop date: 10/25/15 8:49:00 CDT Notes: Do not give IV push. (Same as: Phenergan) Start Date: 09/25/15 Stop Date: 09/29/15 Status: Discontinued potassium chloride 20 mEq, 100 mL, Route: IV, Drug form: INJ, ONCE, Dosing Weight 108.864, kg, Star t date: 09/26/15 8:35:00 CDT, Stop date: 09/26/15 8:35:00 CDT Notes: (Same as: KCL) Infuse no faster than 10 mEq/hr if given peripherally. Start Date: 09/26/15 Stop Date: 09/26/15 Status: Completed promethazine 6.25 mg, Route: IVPB, ONCE, Dosing Weight 108.864, kg, PRN Nausea & Vomiting, Start date: 09/24/15 14:30:00 CDT Start Date: 09/24/15 Stop Date: 09/24/15 Status: Discontinued propofol (ANES) Route: IV, Drug form: INJ, ONCE, Stop date: 09/24/15 10:43:00 CDT Start Date: 09/24/15 Stop Date: 09/24/15 Status: Completed Protonix 40 mg, 1 tab, Route: PO, Drug form: ECTAB, Before Dinner, Start date: 09/25/15 1 6:30:00 CDT, Duration: 30 day, Stop date: 10/24/15 16:30:00 CDT Notes: Tablet should not be chewed or crushed.(Same as: Protonix) Start Date: 09/25/15 Stop Date: 09/29/15 Status: Discontinued rocuronium (ANES) Route: IV, Drug form: INJ, ONCE, Stop date: 09/24/15 10:43:00 CDT Start Date: 09/24/15 Stop Date: 09/24/15 Status: Completed Sodium Chloride 0.9% (Bolus) IV 1,000 mL, 1,000 ml/hr, Infuse Over: 1 hr, Route: IV, ONCE, Priority: STAT, Dosin g Weight 108.864 kg, Start date: 09/25/15 0:08:00 CDT, Duration: 1 doses or time s, Stop date: 09/25/15 0:08:00 CDT Start Date: 09/25/15 Stop Date: 09/25/15 Status: Completed Sodium Chloride 0.9% (Bolus) IV 500 mL, Infuse Over: 20 minutes, Route: IV, ONCE, Dosing Weight 108.864 kg, Star t date: 09/24/15 14:30:00 CDT, Stop date: 09/24/15 14:30:00 CDT Start Date: 09/24/15 Stop Date: 09/24/15 Status: Discontinued Sodium Chloride 0.9% IV (ANES) (ANES) Route: IV, Total Volume: 1,000, Start date: 09/24/15 9:50:00 CDT, Stop date: 04/29 10:50:00 CDT Start Date: 09/24/15 Stop Date: 09/24/15 Status: Completed Sodium Chloride 0.9% IV 1,000 mL 1,000 mL, Rate: 75 ml/hr, Infuse over: 13.3 hr, Route: IV, Dosing Weight 108.864 kg, Total Volume: 1,000, Start date: 09/24/15 20:54:00 CDT, Duration: 30 day, S top date: 10/24/15 20:53:00 CDT Start Date: 09/24/15 Stop Date: 09/26/15 Status: Discontinued Sodium Chloride 0.9% IV 1000 mL 1,000 mL, Rate: 75 ml/hr, Infuse over: 13.3 hr, Route: IV, Dosing Weight 108.864 kg, Total Volume: 1,000, Start date: 09/25/15 10:19:00 CDT, Duration: 30 day, S top date: 10/25/15 10:18:00 CDT Start Date: 09/25/15 Stop Date: 09/25/15 Status: Discontinued Sodium Chloride 0.9% IV 250 mL 250 mL, Rate: 30 ml/hr, Infuse over: 8.3 hr, Route: IV, Dosing Weight 108.864 kg , Total Volume: 250, Start date: 09/25/15 10:26:00 CDT, Duration: 30 day, Stop d ate: 10/25/15 10:25:00 CDT Start Date: 09/25/15 Stop Date: 09/26/15 Status: Discontinued Sodium Chloride 0.9% IV 500 mL 500 mL, Rate: 125 ml/hr, Infuse over: 4 hr, Route: IV, Dosing Weight 108.864 kg, Total Volume: 500, Start date: 09/24/15 14:30:00 CDT, Duration: 30 day, Stop da te: 10/24/15 14:29:00 CDT Start Date: 09/24/15 Stop Date: 09/24/15 Status: Discontinued Sodium Chloride 0.9% IV 500 mL 500 mL, Rate: 125 ml/hr, Infuse over: 4 hr, Route: IV, Dosing Weight 108.864 kg, Total Volume: 500, Start date: 09/24/15 7:54:00 CDT, Duration: 30 day, Stop brandon e: 10/24/15 7:53:00 CDT Start Date: 09/24/15 Stop Date: 09/24/15 Status: Discontinued Solu-CORTEF 50 mg, 1 mL, Route: IVP, Drug form: PDR/INJ, Q6H, Dosing Weight 108.864, kg, Sta rt date: 09/25/15 6:00:00 CDT, Stop date: 10/25/15 0:00:00 CDT Notes: (Same as: Solu-CORTEF) Start Date: 09/25/15 Stop Date: 09/26/15 Status: Discontinued Solu-CORTEF 100 mg, 2 mL, Route: IV, Drug form: PDR/INJ, ONCE, Dosing Weight 108.864, kg, Pr iority: NOW, Start date: 09/25/15 1:34:00 CDT, Stop date: 09/25/15 1:34:00 CDT Notes: (Same as: Solu-CORTEF) Start Date: 09/25/15 Stop Date: 09/25/15 Status: Completed Solu-CORTEF 25 mg, 0.5 mL, Route: IVP, Drug form: PDR/INJ, Q12H, Dosing Weight 108.864, kg, Start date: 09/28/15 0:00:00 CDT, Duration: 30 day, Stop date: 10/27/15 12:00:00 CDT Notes: (Same as: Solu-CORTEF) Start Date: 09/28/15 Stop Date: 09/29/15 Status: Discontinued Solu-CORTEF 50 mg, 1 mL, Route: IVP, Drug form: PDR/INJ, Q12H, Dosing Weight 108.864, kg, St art date: 09/27/15 0:00:00 CDT, Duration: 30 day, Stop date: 10/26/15 12:00:00 C DT Notes: (Same as: Solu-CORTEF) Start Date: 09/27/15 Stop Date: 09/27/15 Status: Discontinued Tylenol 650 mg, 2 tab, Route: PO, Drug form: TAB, Q6H, Dosing Weight 108.864, kg, PRN Pa in 1-3/Temp > 100.4 F, Start date: 09/24/15 19:04:00 CDT, Duration: 30 day, Stop date: 10/24/15 19:03:00 CDT Notes: Do not exceed 4 gm/day. (Same as: Tylenol) Start Date: 09/24/15 Stop Date: 09/29/15 Status: Discontinued Tylenol with Codeine #3 oral tablet 2 tab, Route: PO, Drug Form: TAB, Dosing Weight 108.864, kg, Q4H, PRN Pain Score 1-3, Start date: 09/26/15 8:36:00 CDT, Duration: 30 day, Stop date: 10/26/15 8: 35:00 CDT Notes: Do not exceed 4gm/day of acetaminophen. (Same as: Tylenol with Codeine # 3) Start Date: 09/26/15 Stop Date: 09/29/15 Status: Discontinued Unknown Home Medication Refill(s) 0 Start Date: 09/22/15 Status: Ordered Unknown Home Medication Refill(s) 0 Start Date: 09/22/15 Status: Ordered Venofer + Sodium Chloride 0.9% IV 235 mL 300 mg, 15 mL, Route: IV, BID, Dosing Weight 108.864, kg, Start date: 09/28/15 9 :00:00 CDT, Duration: 6 doses or times, Stop date: 09/30/15 17:00:00 CDT Notes: Each 5ml contains 100mg elemental iron. Mix with NS(Same as:Venofer)Admi nister IV only. MEDICATION WASTE Product Size: 100 mgProduct Wasted: _ __ mg Start Date: 09/28/15 Stop Date: 09/29/15 Status: Discontinued Zofran 4 mg, 2 mL, Route: IV, Drug form: INJ, Q6H, Dosing Weight 108.864, kg, PRN Nause a, Start date: 09/24/15 17:49:00 CDT, Duration: 30 day, Stop date: 10/24/15 17:4 8:00 CDT Notes: (Same as: Zofran) MEDICATION WASTE Product Size: 4 mgProduct Was karla: ___ mg Start Date: 09/24/15 Stop Date: 09/25/15 Status: Discontinued Zofran 4 mg, Route: IV, Q6H, Dosing Weight 108.864, kg, PRN Nausea, Start date: 6 19:04:00 CDT, Duration: 30 day, Stop date: 10/24/15 19:03:00 CDT Start Date: 09/24/15 Stop Date: 09/24/15 Status: Discontinued Zofran 4 mg, 2 mL, Route: IVP, Drug form: INJ, Q4H, Dosing Weight 108.864, kg, PRN Naus ea, Start date: 09/25/15 11:38:00 CDT, Duration: 30 day, Stop date: 10/25/15 11: 37:00 CDT Notes: (Same as: Zofran) MEDICATION WASTE Product Size: 4 mgProduct Was karla: ___ mg Start Date: 09/25/15 Stop Date: 09/29/15 Status: Discontinued Results BLOOD BANK RESULTS 1 2 3 Most recent to oldest [Reference Range]: O NEG *Unknown* (09/28/15 10:08 AM) O NEG *Unknown* (09/22/15 3:20 PM) ABO/Rh Negative (09/28/15 10:08 AM) Negative (09/22/15 3:20 PM) Antibody Scrn Product available 1 (09/25/15 1:31 AM) FFP product Product available 2 (09/28/15 9:26 AM) Product available 3 (09/25/15 2:12 PM) Product available 4 (09/25/15 1:30 AM) RBC product 1Result Comment: 09/25/2015 03:25 [id number] notified shonna herrera 09/25/2015 03:25 jw 2Result Comment: 09/28/2015 11:36 [id number] Notified Bull at 09/28/2015 11:36 by nf 3Result Comment: 09/25/2015 14:27 [id number] notified Steven at 09/25/2015 14:27 4Result Comment: 09/25/2015 02:27 [id number] notified shonna herrera 09/25/2015 02:27 jw ELECTROLYTES 1 2 3 Most recent to oldest [Reference Range]: 141 mEq/L (09/29/15 5:30 AM) 140 mEq/L (09/28/15 6:06 AM) 139 mEq/L (09/27/15 7:11 AM) Sodium Lvl [135-145 mEq/L] 3.9 mEq/L (09/29/15 5:30 AM) 4.0 mEq/L (09/28/15 6:06 AM) 4.0 mEq/L (09/27/15 7:11 AM) Potassium Lvl [3.5-5.1 mEq/L] 105 mEq/L (09/29/15 5:30 AM) 106 mEq/L (09/28/15 6:06 AM) 106 mEq/L (09/27/15 7:11 AM) Chloride Lvl [95-109 mEq/L] 30 mEq/L (09/29/15 5:30 AM) 28 mEq/L (09/28/15 6:06 AM) 29 mEq/L (09/27/15 7:11 AM) CO2 [24-32 mEq/L] 9.9 mEq/L *LOW* (09/29/15 5:30 AM) 10.0 mEq/L (09/28/15 6:06 AM) 8.0 mEq/L *LOW* (09/27/15 7:11 AM) AGAP [10.0-20.0 mEq/L] CHEM PANEL 1 2 3 Most recent to oldest [Reference Range]: 0.53 mg/dL (09/29/15 5:30 AM) 0.54 mg/dL (09/28/15 6:06 AM) 0.52 mg/dL (09/27/15 7:11 AM) Creatinine Lvl [0.50-1.40 mg/dL] 105 mL/min/1.73m2 1 *NA* (09/29/15 5:30 AM) 105 mL/min/1.73m2 2 *NA* (09/28/15 6:06 AM) 106 mL/min/1.73m2 3 *NA* (09/27/15 7:11 AM) eGFR 11 mg/dL (09/29/15 5:30 AM) 12 mg/dL (09/28/15 6:06 AM) 13 mg/dL (09/27/15 7:11 AM) BUN [7-22 mg/dL] 16 (09/26/15 4:25 AM) 16 (09/25/15 4:17 AM) 16 (09/22/15 3:20 PM) B/C Ratio [6-25] 113 mg/dL *HI* (09/29/15 5:30 AM) 117 mg/dL *HI* (09/28/15 6:06 AM) 101 mg/dL *HI* (09/27/15 7:11 AM) Glucose Lvl [70-99 mg/dL] 5.3 g/dL *LOW* (09/26/15 4:25 AM) 4.9 g/dL *LOW* (09/25/15 4:17 AM) 4.8 g/dL *LOW* (09/25/15 4:17 AM) Total Protein [6.4-8.4 g/dL] 2.9 g/dL *LOW* (09/26/15 4:25 AM) 2.9 g/dL *LOW* (09/25/15 4:17 AM) 2.9 g/dL *LOW* (09/25/15 4:17 AM) Albumin Lvl [3.5-5.0 g/dL] 2.4 g/dL (09/26/15 4:25 AM) 2.0 g/dL (09/25/15 4:17 AM) 1.9 g/dL *LOW* (09/25/15 4:17 AM) Globulin [2.0-4.0 g/dL] 1.2 (09/26/15 4:25 AM) 1.4 (09/25/15 4:17 AM) 1.5 (09/25/15 4:17 AM) A/G Ratio [0.7-1.6] 7.5 mg/dL *LOW* (09/29/15 5:30 AM) 7.9 mg/dL *LOW* (09/28/15 6:06 AM) 7.6 mg/dL *LOW* (09/27/15 7:11 AM) Calcium Lvl [8.5-10.5 mg/dL] 2.7 mg/dL (09/25/15 4:17 AM) Phosphorus [2.5-4.5 mg/dL] 2.2 mg/dL (09/29/15 5:30 AM) 2.2 mg/dL (09/26/15 4:25 AM) 1.5 mg/dL *LOW* (09/25/15 4:17 AM) Magnesium Lvl [1.8-2.4 mg/dL] 32 unit/L (09/26/15 4:25 AM) 34 unit/L (09/25/15 4:17 AM) 32 unit/L (09/25/15 4:17 AM) ALT [0-65 unit/L] 31 unit/L (09/26/15 4:25 AM) 38 unit/L *HI* (09/25/15 4:17 AM) 37 unit/L (09/25/15 4:17 AM) AST [0-37 unit/L] 39 unit/L (09/26/15 4:25 AM) 34 unit/L *LOW* (09/25/15 4:17 AM) 34 unit/L *LOW* (09/25/15 4:17 AM) Alk Phos [39-136 unit/L] 0.6 mg/dL (09/26/15 4:25 AM) 0.5 mg/dL (09/25/15 4:17 AM) 0.5 mg/dL (09/25/15 4:17 AM) Bili Total [0.2-1.3 mg/dL] 0.2 mg/dL (09/25/15 4:17 AM) Bili Direct [0.0-0.3 mg/dL] 0.3 mg/dL (09/25/15 4:17 AM) Bili Indirect [0.0-1.0 mg/dL] 1Result Comment: The eGFR is calculated using the [...] from the National Kid[employer] Education Program ( NKDEP) which additionally recommends that when the eGFR is used in patients with extremes of body mass index for purposes of drug dosing, the eGFR should be mul tiplied by the estimated BMI. 2Result Comment: The eGFR is calculated using the [...] from the National Kid[employer] Education Program ( NKDEP) which additionally recommends that when the eGFR is used in patients with extremes of body mass index for purposes of drug dosing, the eGFR should be mul tiplied by the estimated BMI. 3Result Comment: The eGFR is calculated using the [...] from the National Kid[employer] Education Program ( NKDEP) which additionally recommends that when the eGFR is used in patients with extremes of body mass index for purposes of drug dosing, the eGFR should be mul tiplied by the estimated BMI. ANEMIA STUDY 1 2 3 Most recent to oldest [Reference Range]: 25 ug/dl *LOW* (09/27/15 5:24 PM) Iron [30-160 ug/dl] 85 ng/mL (09/27/15 5:24 PM) 89 ng/mL (09/27/15 5:24 PM) Ferritin Lvl [5-204 ng/mL] 12 % (09/27/15 5:24 PM) % Satur Fe [12-57 %] 177 ug/dl (09/27/15 5:24 PM) UIBC [110-370 ug/dl] 349 pg/mL (09/27/15 5:24 PM) Vitamin B12 Lvl [254-1320 pg/mL] 15.7 ng/mL (09/27/15 5:24 PM) Folate Lvl [>=3.0 ng/mL] 202 ug/dl *LOW* (09/27/15 5:24 PM) TIBC [228-428 ug/dl] URINE AND STOOL 1 2 3 Most recent to oldest [Reference Range]: Clear (09/22/15 3:20 PM) UA Turbidity [Clear] Ltyellow *NA* (09/22/15 3:20 PM) UA Color 5.0 (09/22/15 3:20 PM) UA pH [5.0-8.0] 1.024 (09/22/15 3:20 PM) UA Spec Grav [<=1.030] 500 mg/dL *ABN* (09/22/15 3:20 PM) UA Glucose [Negative mg/dL] Negative (09/22/15 3:20 PM) UA Blood [Negative] Negative mg/dL *NA* (09/22/15 3:20 PM) UA Ketones [Negative mg/dL] Negative mg/dL (09/22/15 3:20 PM) UA Protein [Negative mg/dL] <=1.0 mg/dL *NA* (09/22/15 3:20 PM) UA Urobilinogen [0.1-1.0 mg/dL] Negative *NA* (09/22/15 3:20 PM) UA Bili [Negative] Small *ABN* (09/22/15 3:20 PM) UA Leuk Est [Negative] Negative (09/22/15 3:20 PM) UA Nitrite [Negative] 103 /HPF *HI* (09/22/15 3:20 PM) UA WBC [0-5 /HPF] 7 /HPF *HI* (09/22/15 3:20 PM) UA RBC [0-2 /HPF] Few /HPF *NA* (09/22/15 3:20 PM) UA Bacteria [None Seen /HPF] Occasional /LPF *NA* (09/22/15 3:20 PM) UA Sq Epi [Few /LPF] Few /LPF *NA* (09/22/15 3:20 PM) UA Mucus [None Seen /LPF] HEMATOLOGY 1 2 3 Most recent to oldest [Reference Range]: 8.3 K/CMM (09/29/15 5:30 AM) 6.9 K/CMM (09/28/15 6:06 AM) 9.0 K/CMM (09/27/15 7:11 AM) WBC [3.7-10.4 K/CMM] 3.13 M/CMM *LOW* (09/29/15 5:30 AM) 2.76 M/CMM *LOW* (09/28/15 6:06 AM) 2.87 M/CMM *LOW* (09/27/15 7:11 AM) RBC [4.20-5.40 M/CMM] 8.4 g/dL *LOW* (09/29/15 5:30 AM) 7.4 g/dL *LOW* (09/28/15 6:06 AM) 7.6 g/dL *LOW* (09/27/15 7:11 AM) Hgb [12.0-16.0 g/dL] 25.8 % *LOW* (09/29/15 5:30 AM) 22.6 % *LOW* (09/28/15 6:06 AM) 23.5 % *LOW* (09/27/15 7:11 AM) Hct [36.0-48.0 %] 82.4 fL (09/29/15 5:30 AM) 82.1 fL (09/28/15 6:06 AM) 81.6 fL (09/27/15 7:11 AM) MCV [80.0-98.0 fL] 26.8 pg *LOW* (09/29/15 5:30 AM) 26.7 pg *LOW* (09/28/15 6:06 AM) 26.5 pg *LOW* (09/27/15 7:11 AM) MCH [27.0-31.0 pg] 32.5 g/dL (09/29/15 5:30 AM) 32.5 g/dL (09/28/15 6:06 AM) 32.4 g/dL (09/27/15 7:11 AM) MCHC [32.0-36.0 g/dL] 16.8 % *HI* (09/29/15 5:30 AM) 17.2 % *HI* (09/28/15 6:06 AM) 16.5 % *HI* (09/27/15 7:11 AM) RDW [11.5-14.5 %] 186 K/CMM (09/29/15 5:30 AM) 159 K/CMM (09/28/15 6:06 AM) 146 K/CMM (09/27/15 7:11 AM) Platelet [133-450 K/CMM] 8.5 fL (09/29/15 5:30 AM) 8.6 fL (09/28/15 6:06 AM) 8.8 fL (09/27/15 7:11 AM) MPV [7.4-10.4 fL] 80.5 % *HI* (09/29/15 5:30 AM) 85.9 % *HI* (09/28/15 6:06 AM) 84.9 % *HI* (09/27/15 7:11 AM) Segs [45.0-75.0 %] 10.2 % *LOW* (09/29/15 5:30 AM) 7.9 % *LOW* (09/28/15 6:06 AM) 8.9 % *LOW* (09/27/15 7:11 AM) Lymphocytes [20.0-40.0 %] 5.8 % (09/29/15 5:30 AM) 5.1 % (09/28/15 6:06 AM) 5.2 % (09/27/15 7:11 AM) Monocytes [2.0-12.0 %] 2.8 % (09/29/15 5:30 AM) 0.8 % (09/28/15 6:06 AM) 0.6 % (09/27/15 7:11 AM) Eosinophils [0.0-4.0 %] 0.7 % (09/29/15 5:30 AM) 0.3 % (09/28/15 6:06 AM) 0.4 % (09/27/15 7:11 AM) Basophils [0.0-1.0 %] 6.6 K/CMM (09/29/15 5:30 AM) 5.9 K/CMM (09/28/15 6:06 AM) 7.6 K/CMM (09/27/15 7:11 AM) Segs-Bands # [1.5-8.1 K/CMM] 0.8 K/CMM *LOW* (09/29/15 5:30 AM) 0.5 K/CMM *LOW* (09/28/15 6:06 AM) 0.8 K/CMM *LOW* (09/27/15 7:11 AM) Lymphocytes # [1.0-5.5 K/CMM] 0.5 K/CMM (09/29/15 5:30 AM) 0.4 K/CMM (09/28/15 6:06 AM) 0.5 K/CMM (09/27/15 7:11 AM) Monocytes # [0.0-0.8 K/CMM] 0.2 K/CMM (09/29/15 5:30 AM) 0.1 K/CMM (09/28/15 6:06 AM) 0.1 K/CMM (09/27/15 7:11 AM) Eosinophils # [0.0-0.5 K/CMM] 0.1 K/CMM (09/29/15 5:30 AM) 0.1 K/CMM (09/24/15 2:21 PM) Basophils # [0.0-0.2 K/CMM] Normal (09/24/15 2:21 PM) RBC Morph Normal (09/24/15 4:31 PM) Normal (09/24/15 2:21 PM) Plt Morph 3.3 % *HI* (09/27/15 5:24 PM) Retic Auto [0.5-1.5 %] 15.7 seconds *HI* (09/25/15 4:04 PM) 16.8 seconds *HI* (09/25/15 4:17 AM) 13.9 seconds (09/22/15 3:20 PM) PT [12.0-14.7 seconds] 1.22 *HI* (09/25/15 4:04 PM) 1.33 *HI* (09/25/15 4:17 AM) 1.04 (09/22/15 3:20 PM) INR [0.85-1.17] 35.3 seconds (09/25/15 4:04 PM) 28.5 seconds (09/22/15 3:20 PM) PTT [22.9-35.8 seconds] BACTERIAL - SEROLOGY 1 2 3 Most recent to oldest [Reference Range]: Negative (09/24/15 9:15 PM) MRSA by PCR Immunizations No data available for this section Procedures Procedure Date Related Diagnosis Body Site Abdominal hysterectomy 05/15/89 Reposition of lens of eye 05/15/89 Breast lumpectomy Lobectomy1 95071 Social History Social History Type Response Smoking Status Former smoker; Type: Cigarettes; Exposure to Tobacco Smoke None; Cigarette Smoking Last 365 Days No; Reg Smoking Cessation Counseling No Assessment and Plan Extracted from: Title: Clinical Document Author: Ham Carlson MD Date: 09/29/15 Progress Daily [facility] Completed: Tuesday, SEPTEMBER 29, 2015, 16:23 by Ham Carlson MD RM: [id number] - 1P, SE COLLEEN [id number] (: 1955) F Attending: Carlos Gonzalez: Service: Internal Medicine Reason for Admission: UNK Working DRG: Major chest procedures w CUSTODIAL Code status: None Specified=FULL CODECurrent diet: Isolation: None Documented Allergies: Surgical Tape, sulfa drugs SUBJECTIVE Since last visit the patient had her right lung biopsy by interventional radiology. In the chest tubes were subsequently taken out. She is comfortable and denies any complaints. She is getting ready to go home. OBJECTIVE On exam she is nondistressed comfortable appearing on room air. Head normocephalic atraumatic mucus murmurs are moist. Chest the most part is clear there are some rhonchi in the right. Heart regular rate rhythm no murmurs rubs gallops. Abdomen soft nontender. Extremities no cyanosis clubbing or edema. Labs (Last four charted values) WBC 8.3(SEPTEMBER 28)6.9(SEPTEMBER 27)9.0(SEPTEMBER 26)9.1(SEPTEMBER 25) Hgb L 8.4(SEPTEMBER 28)L 7.4(SEPTEMBER 27)L 7.6(SEPTEMBER 26)L 7.7(SEPTEMBER 25) Hct L 25.8(SEPTEMBER 28)L 22.6(SEPTEMBER 27)L 23.5(SEPTEMBER 26)L 23.3(SEPTEMBER 25) Plt 186(SEPTEMBER 28)159(SEPTEMBER 27)146(SEPTEMBER 26)L 132(SEPTEMBER 25) Na 141(SEPTEMBER 28)140(SEPTEMBER 27)139(SEPTEMBER 15)140(SEPTEMBER 25) K 3.9(SEPTEMBER 28)4.0(SEPTEMBER 27)4.0(SEPTEMBER 26)3.6(SEPTEMBER 25) CO2 30(SEPTEMBER 28)28(SEPTEMBER 16)29(SEPTEMBER 15)29(SEPTEMBER 25) Cl 105(SEPTEMBER 28)106(SEPTEMBER 16)106(SEPTEMBER 15)106(SEPTEMBER 25) Cr 0.53(SEPTEMBER 28)0.54(SEPTEMBER 27)0.52(SEPTEMBER 26)0.58(SEPTEMBER 25) BUN 11(SEPTEMBER 28)12(SEPTEMBER 27)13(SEPTEMBER 15)9(SEPTEMBER 25) Glucose Random H 113(SEPTEMBER 28)H 117(SEPTEMBER 16)H 101(SEPTEMBER 15)H 113(SEPTEMBER 25) Mg 2.2(SEPTEMBER 28)2.2(SEPTEMBER 25)L 1.5(SEPTEMBER 24)1.8(SEPTEMBER 23) Phos 2.7(SEPTEMBER 24) Ca L 7.5(SEPTEMBER 28)L 7.9(SEPTEMBER 27)L 7.6(SEPTEMBER 26)L 7.4(SEPTEMBER 25) PT H 15.7(SEPTEMBER 24)H 16.8(SEPTEMBER 24)13.9(SEPTEMBER 21) INR H 1.22(SEPTEMBER 24)H 1.33(SEPTEMBER 24)1.04(SEPTEMBER 21) PTT 35.3(SEPTEMBER 24)28.5(SEPTEMBER 21) ASSESSMENT & EXAM Currently stable. She's had her biopsy we are awaiting results. She is getting iron infusion. PLAN & TREATMENT She can go home and get her results as an outpatient from Dr. Lobo and . I recommend that she follow up with Dr. Mckay in approximately 1-2 weeks. Plan was discussed with the patient and spouse expressed understanding and approval. Plan was also discussed with bedside nurse. DIAGNOSES & PROBLEMS Ready for Discharge (Yes/No)? [place] still necessary (Yes/No): Line still necessary (Yes/No): 24hr Labs 09/28 1531 Glucose QOS509 H 09/28 1123 Glucose XOU602 H 09/28 0545 Glucose QBV108 H 09/28 0530 Glucose Tem158 H BUN11 Creatinine Lvl0.53 Sodium Kco890 Potassium Lvl3.9 Chloride Ali886 CO230 AGAP9.9 L Calcium Lvl7.5 L xFGW377 Magnesium Lvl2.2 WBC8.3 RBC3.13 L Hgb8.4 L Hct25.8 L MCV82.4 MCH26.8 L MCHC32.5 RDW16.8 H Brpkrbih301 MPV8.5 Segs80.5 H Monocytes5.8 Qsszbmqyjyy80.2 L Eosinophils2.8 Basophils0.7 Segs-Bands #6.6 Lymphocytes #0.8 L Monocytes #0.5 Eosinophils #0.2 Basophils #0.1 09/28 0232 Glucose PRB946 H 09/27 2054 Glucose JOG894 H VitalsTmp(F)NxgrdMGKYYuO2HJJ5 09/28 16:0098.844054/333570--- 09/28 12:[id number]/016988--- 09/28 08:009.734512/703028--- 09/28 07:08 2093 24% 09/28 04:0098.721259/392079--- 24 Hr Tmax: 98.9F (37.17c) at 05/17 04:00Vital Signs are the last 5 in the past 48 hours. DateWt(kg)Wt(lb)Ht(cm)Ht(in)Method 09/21 (initial)108.86 239.50Measured .18 67.00Stated I&ORecordInOutBal 4hr Tot 534 10 524 1624hr Tot 1463 4605-2301 Medications (26) Active Scheduled Meds (6): 09/27/15 albuterol (albuterol 0.083% inhalation solution) 2.5 mg NEB RQ4H 09/25/15 doxepin (doxepin 25 mg oral capsule) 25 mg PO Daily 09/25/15 gabapentin (gabapentin 300 mg oral capsule) 300 mg PO Daily 09/25/15 heparin 5,000 unit SUB-Q Q12H 09/28/15 iron sucrose + Sodium Chloride 0.9% IV 235 mL (Venofer + Sodium Chloride 0.9% IV 235 mL) 300 mg IV BID 125 ml/hr 09/25/15 pantoprazole (Protonix) 40 mg PO Before Dinner Unscheduled Meds: None PRN Meds (20): 09/28/15 Dextrose 50% in Water IV (Dextrose 50% Syringe) 12.5 gm IVP PRN 09/28/15 Dextrose 50% in Water IV (Dextrose 50% Syringe) 25 gm IVP PRN 09/26/15 acetaminophen-codeine (Tylenol with Codeine #3 oral tablet) 2 tab PO Q4H 09/24/15 acetaminophen (Tylenol) 650 mg PO Q6H 09/25/15 fentaNYL 50 microgram IV Q30Min 09/28/15 glucagon 1 mg IM PRN 09/28/15 insulin aspart 2 unit SUB-Q TID-Before Meals 09/28/15 insulin aspart 4 unit SUB-Q TID-Before Meals 09/28/15 insulin aspart 6 unit SUB-Q TID-Before Meals 09/28/15 insulin aspart 8 unit SUB-Q TID-Before Meals 09/28/15 insulin aspart 10 unit SUB-Q TID-Before Meals 09/28/15 insulin aspart 1 unit SUB-Q Bedtime 09/28/15 insulin aspart 2 unit SUB-Q Bedtime 09/28/15 insulin aspart 3 unit SUB-Q Bedtime 09/28/15 insulin aspart 4 unit SUB-Q Bedtime 09/27/15 magnesium hydroxide (Milk of Magnesia) 30 ml PO Bedtime 09/25/15 morphine Sulfate 3 mg IVP Q3H 09/26/15 morphine Sulfate 4 mg IV Q4H 09/25/15 ondansetron (Zofran) 4 mg IVP Q4H 09/25/15 promethazine + sodium chloride 20 mL (Phenergan + sodium chloride 20 mL) 12.5 mg IV Central Q12H 123 ml/hr One Time Meds: None Continuous Infusions: None ]
--- OUTSIDE RECORDS SUMMARY | 2018-03-09 11:22 | XMS REPORT | Summary of Care ---
Author Author [facility] [place] Organization [facility] [place] Address Unknown Phone Unavailable Encounter HQ David_jaquan(FIN) [id number] Date(s): 03/20/15 - 03/20/15 [facility] [place] [address], [place] [address] [phone] Discharge Disposition: Home Attending Physician: Laurita Gilbert MD Vital Signs No data available for this section Problem List Condition Effective Dates Status Health [...] Medications No data available for this section Results No data available for this section Immunizations No data available for this section Procedures Procedure Date Related Diagnosis Body Site Abdominal hysterectomy 05/15/89 Reposition of lens of eye 05/15/89 Breast lumpectomy Social History Social History Type Response Assessment and Plan No data available for this section
--- OUTSIDE RECORDS SUMMARY | 2018-03-09 11:22 | XMS REPORT | Summary of Care ---
Author Organization Unknown Address Unknown Phone Unavailable Encounter HQ Carlntr_jaquan(YOMAIRA) [id number] Date(s): 12/05/13 - 12/05/13 [facility] [address] [place], [place] [id number] [place] [address] Discharge Disposition: Home Physician Attending: Myke Mckay MD Physician_Referring: Myek Mckay MD Reason for Visit RESTAGING DX:LUNG CA Problem List Condition Effective Dates Status Health [...]
--- OUTSIDE RECORDS SUMMARY | 2018-03-09 11:22 | XMS REPORT | Summary of Care ---
Author Organization Unknown Address Unknown Phone Unavailable Encounter HQ Denise(YOMAIRA) [id number] Date(s): 01/20/14 - 02/18/14 [facility] [address] Discharge Disposition: Home Physician Attending: Laurita Gilbert MD Physician_Referring: Laurita Gilbert MD Reason for Visit DIABETES Problem List Condition Effective Dates Status Health [...]
--- OUTSIDE RECORDS SUMMARY | 2018-03-09 11:23 | XMS REPORT ---
Author Author Barron De Jesus Organization [employer] Address Unknown Phone Unavailable Care Team Providers Care Review Analyst Name Role Phone Barron De Jesus CP Unavailable Allergies No Known Allergies Problems Problem Type Condition Code Onset Dates Condition Status Problem Pure hyperglyceridemia 272.1 Active Problem Obesity, unspecified 278.00 Active Problem Hypertensive heart disease without heart failure I11.9 Active Problem Pure hyperglyceridemia E78.1 Active Problem Type 2 diabetes mellitus with diabetic neuropathy, unspecified E11.40 Active Problem Benign hypertensive heart disease without heart failure 402.10 Active Problem Malignant neoplasm of middle lobe, bronchus, or lung 162.4 Active Problem Obesity, unspecified E66.9 Active Problem Malignant neoplasm of middle lobe, bronchus or lung C34.2 Active Medications Medication Code System Code Instructions Start Date End Date Status Dosage [place] [facility] [address]-56 5 MG Orally Once a day Active 1 tablet Results No Known Results Summary Purpose [employer] Submission
--- OUTSIDE RECORDS SUMMARY | 2018-03-09 11:23 | XMS REPORT | Summary of Care ---
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) - Chronic obstructive pulmonary disease with (acute) exacerbation (Final) - Type 2 diabetes mellitus with hypoglycemia without coma (Final) - Body mass index (BMI) 40.0-44.9, adult (Final) - Personal history of other malignant neoplasm of bronchus and lung (Final) - Adverse effect of glucocorticoids and synthetic analogues, initial encounter (Final) - Radiological procedure and radiotherapy as the cause of abnormal reaction of the patient, or of later complication, without mention of misadventure at the time of the procedure (Final) - [facility] (current) use of insulin (Final) - Hyperlipidemia, unspecified (Final) - Personal history of nicotine dependence (Final) - Unqualified visual loss, left eye, normal vision right eye (Final) - Other obesity due to excess calories (Final) - Obstructive sleep apnea (adult) (pediatric) (Final) - Bacteriuria (Final) - Acute respiratory distress (Final) - Hypoxemia (Final) - Discharge Disposition: Home or Self Care Attending Physician: Ailin Robbins MD Admitting Physician: Ailin Robbins MD Vital Signs 1 2 3 Most recent to oldest [Reference Range]: 170.18 cm (07/20/17 6:12 PM) 152.4 cm (07/20/17 11:38 AM) Height 117.818 kg (07/27/17 3:09 AM) 118.182 kg (07/26/17 5:19 AM) 118.835 kg (07/25/17 6:33 AM) Current Weight 97.6 DegF (07/27/17 11:42 AM) 98.1 DegF (07/27/17 7:30 AM) 98.0 DegF (07/27/17 5:03 AM) Temperature Oral [96.4-99.1 DegF] 115/82 mmHg (07/27/17 11:42 AM) 124/82 mmHg (07/27/17 7:30 AM) 108/60 mmHg (07/27/17 5:03 AM) Blood Pressure [90-140/60-90 mmHg] 16 BRMIN (07/27/17 11:42 AM) 16 BRMIN (07/27/17 8:56 AM) 18 BRMIN (07/27/17 7:30 AM) Respiratory Rate [14-20 BRMIN] 93 bpm (07/27/17 11:42 AM) 78 bpm (07/27/17 7:30 AM) 71 bpm (07/27/17 5:03 AM) Peripheral Pulse Rate [60-100 bpm] 123.364 kg (07/23/17 8:00 AM) 115.909 kg (07/20/17 6:12 PM) 106.818 kg (07/20/17 11:38 AM) Weight 40.02 m2 (07/20/17 6:12 PM) 45.99 m2 (07/20/17 11:38 AM) Body Mass Index Problem List Condition Effective Dates Status Health [...] sulfa drugs Active Surgical Tape Active Medications albuterol-ipratropium 2.5-0.5 mg inhalation solution 9 mL, Route: NEB, Drug Form: SOLN, Dosing Weight 106.818, kg, ONCE, STAT, Start date: 07/20/17 12:18:00 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, Stop date: 07/20/17 12:18:00 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 Start Date: 07/20/17 Stop Date: 07/20/17 Status: Completed albuterol-ipratropium 2.5-0.5 mg inhalation solution 3 mL, Route: NEB, Drug Form: SOLN, Dosing Weight 106.818, kg, PRN, PRN Respirato ry Protocol, Start date: 07/20/17 17:15:00 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, Duration: 30 day, Stop date: 11/29 18:14:00 CDT Notes: (Same as: Duoneb) Start Date: 07/20/17 Stop Date: 07/27/17 Status: Discontinued ALPRAZOLam 0.25 mg oral tablet 0.25 mg, 1 tab, Route: PO, Drug form: TAB, Daily, Dosing Weight 115.909, kg, PRN Anxiety, Start date: 07/20/17 20:45:00 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, Duration: 30 day, Stop date: 20:44:00 CDT Notes: With food or milk(Same as: Xanax) Start Date: 07/20/17 Stop Date: 07/27/17 Status: Discontinued amoxicillin 875 mg oral tablet 875 mg=1 tab, PO, Q12H, 0 Refill(s) Start Date: 07/20/17 Stop Date: 07/27/17 Status: Discontinued azithromycin + Sodium Chloride 0.9% IV 250 mL 500 mg, Route: IVPB, [id number], Dosing Weight 106.818, kg, Start date: 07/21/17 16 :00:00 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, Duration: 3 day, Stop date: 07/23/17 16:00:00 CDT, ABX Indication: P neumonia Notes: (Same As: Zithromax IV) Start Date: 07/21/17 Stop Date: 07/23/17 Status: Completed azithromycin + Sodium Chloride 0.9% IV 250 mL 500 mg, Route: IVPB, ONCE, Dosing Weight 106.818, kg, Priority: STAT, Start date : 07/20/17 14:19:00 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, Stop date: 07/20/17 14:19:00 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, ABX Indication: Pneum onia Notes: (Same As: Zithromax IV) Start Date: 07/20/17 Stop Date: 07/20/17 Status: Completed benzonatate 100 mg oral capsule 100 mg=1 cap, PO, TID, PRN as needed for cough, 0 Refill(s) Start Date: 07/20/17 Status: Ordered Breo Ellipta 100 mcg-25 mcg inhalation powder 1 puff, INHALATION, QPM, 0 Refill(s) Start Date: 07/20/17 Status: Ordered Breo Ellipta 100 mcg-25 mcg inhalation powder 1 inhalation, Route: INHALATION, Drug Form: PWDR, Dosing Weight 115.909, kg, QPM , Start date: 07/21/17 17:00:00 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, Duration: 30 day, Stop date: 08/19/17 21:00 :00 CDT Notes: (Same as: Breo Ellipta) Start Date: 07/21/17 Stop Date: 07/27/17 Status: Discontinued cefTRIAXone + sterile water 10 mL 1 gm, Route: IVP, Drug form: PDR/INJ, [id number], Dosing Weight 106.818, kg, Start date: 07/21/17 16:00:00 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, Duration: 7 day, Stop date: 07/27/17 16:00:00 CDT, ABX Indication: Pneumonia Notes: (Same As: Rocephin).Use with 100 mL NS and infuse over 30 min MEDICA TION WASTE Product Size: 1000 mgProduct Wasted: ___ mg Start Date: 07/21/17 Stop Date: 07/27/17 Status: Completed cefTRIAXone + sterile water 10 mL 1 gm, Route: IVP, ONCE, Dosing Weight 106.818, kg, Priority: STAT, Start date: 0 07/20/17 14:19:00 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, Stop date: 07/20/17 14:19:00 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, ABX Indication: Pneumoni a Notes: (Same As: Rocephin).Use with 100 mL NS and infuse over 30 min MEDICA TION WASTE Product Size: 1000 mgProduct Wasted: ___ mg Start Date: 07/20/17 Stop Date: 07/20/17 Status: Completed celecoxib 200 mg oral capsule 200 mg=1 cap, PO, BID, 0 Refill(s) Start Date: 07/20/17 Status: Ordered cetirizine 10 mg, 2 tab, Route: PO, Drug form: TAB, Daily, PRN Allergies, Start date: 07/25 9:33:00 CDT, Duration: 30 day, Stop date: 08/24/17 9:32:00 CDT Notes: (Same As: Zyrtec) Start Date: 07/25/17 Stop Date: 07/27/17 Status: Discontinued Crestor 5 mg, 1 tab, Route: PO, Drug form: TAB, Daily, Dosing Weight 115.909, kg, Start date: 07/21/17 9:00:00 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, Duration: 30 day, Stop date: 08/19/17 21:00:00 CDT Notes: Same as Crestor Start Date: 07/21/17 Stop Date: 07/27/17 Status: Discontinued Dextrose 50% Syringe 25 gm, 50 mL, Route: IVP, Drug Form: INJ, Dosing Weight 123.364, kg, PRN, PRN Bl ood Glucose Results, Start date: 07/23/17 20:54:00 CDT, Duration: 30 day, Stop d ate: 08/22/17 20:53:00 CDT Start Date: 07/23/17 Stop Date: 07/25/17 Status: Discontinued Dextrose 50% Syringe 12.5 gm, 25 mL, Route: IVP, Drug Form: INJ, Dosing Weight 123.364, kg, PRN, PRN Blood Glucose Results, Start date: 07/23/17 20:54:00 CDT, Duration: 30 day, Stop date: 08/22/17 20:53:00 CDT Start Date: 07/23/17 Stop Date: 07/25/17 Status: Discontinued Dextrose 50% Syringe 12.5 gm, 25 mL, Route: IVP, Drug Form: INJ, Dosing Weight 123.364, kg, PRN, PRN Blood Glucose Results, Start date: 07/25/17 9:05:00 CDT, Duration: 30 day, Stop date: 08/24/17 9:04:00 CDT Start Date: 07/25/17 Stop Date: 07/27/17 Status: Discontinued Dextrose 50% Syringe 25 gm, 50 mL, Route: IVP, Drug Form: INJ, Dosing Weight 123.364, kg, PRN, PRN Bl ood Glucose Results, Start date: 07/25/17 9:05:00 CDT, Duration: 30 day, Stop da te: 08/24/17 9:04:00 CDT Start Date: 07/25/17 Stop Date: 07/27/17 Status: Discontinued Dextrose 50% Syringe 25 gm, 50 mL, Route: IVP, Drug Form: INJ, Dosing Weight 123.364, kg, PRN, PRN Bl ood Glucose Results, Start date: 07/23/17 12:45:00 CDT, Duration: 30 day, Stop d ate: 08/22/17 12:44:00 CDT Start Date: 07/23/17 Stop Date: 07/25/17 Status: Discontinued Dextrose 50% Syringe 12.5 gm, 25 mL, Route: IVP, Drug Form: INJ, Dosing Weight 123.364, kg, PRN, PRN Blood Glucose Results, Start date: 07/23/17 12:45:00 CDT, Duration: 30 day, Stop date: 08/22/17 12:44:00 CDT Start Date: 07/23/17 Stop Date: 07/25/17 Status: Discontinued Diflucan 200 mg, 2 tab, Route: PO, Drug form: TAB, [id number], Dosing Weight 123.364, kg, St art date: 07/25/17 18:00:00 CDT, Duration: 5 day, Stop date: 07/29/17 18:00:00 C DT, ABX Indication: Other (specify in Comments) Notes: (Same as: Diflucan) Start Date: 07/25/17 Stop Date: 07/26/17 Status: Discontinued doxepin 25 mg oral capsule 25 mg, 1 cap, Route: PO, Drug form: CAP, Bedtime, Dosing Weight 115.909, kg, Sta rt date: 07/20/17 21:00:00 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, Duration: 30 day, Stop date: 08/18/17 21:00:00 C DT Notes: (Same as: SINEquan) Start Date: 07/20/17 Stop Date: 07/27/17 Status: Discontinued gabapentin 300 mg oral capsule 300 mg, 1 cap, Route: PO, Drug form: CAP, BID, Dosing Weight 115.909, kg, Start date: 07/21/17 9:00:00 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, Duration: 30 day, Stop date: 08/19/17 17:00:00 CDT Notes: (Same as: Neurontin) Start Date: 07/21/17 Stop Date: 07/27/17 Status: Discontinued glucagon 1 mg, Route: IM, Drug form: PDR/INJ, PRN, Dosing Weight 123.364, kg, PRN Blood G lucose Results, Start date: 07/23/17 20:54:00 CDT, Duration: 30 day, Stop date: 08/22/17 20:53:00 CDT Start Date: 07/23/17 Stop Date: 07/25/17 Status: Discontinued glucagon 1 mg, Route: IM, Drug form: PDR/INJ, PRN, Dosing Weight 123.364, kg, PRN Blood G lucose Results, Start date: 07/25/17 9:05:00 CDT, Duration: 30 day, Stop date: 0 08/24/17 9:04:00 CDT Start Date: 07/25/17 Stop Date: 07/27/17 Status: Discontinued glucagon 1 mg, Route: IM, Drug form: PDR/INJ, PRN, Dosing Weight 123.364, kg, PRN Blood G lucose Results, Start date: 07/23/17 12:45:00 CDT, Duration: 30 day, Stop date: 08/22/17 12:44:00 CDT Start Date: 07/23/17 Stop Date: 07/25/17 Status: Discontinued guaiFENesin 200 mg, 10 mL, Route: PO, Drug form: LIQ, Q4H, Dosing Weight 106.818, kg, PRN Co ugh, Start date: 07/20/17 17:15:00 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, Duration: 30 day, Stop date: 08/19/17 17 :14:00 CDT Notes: (Same as: Chaparro) Start Date: 07/20/17 Stop Date: 07/27/17 Status: Discontinued Incruse Ellipta 62.5 mcg inhalation powder 62.5 microgram, INHALATION, Q24H, 0 Refill(s) Start Date: 07/20/17 Status: Ordered insulin glargine 100 units/mL subcutaneous solution 10 unit, SUB-Q, Bedtime, # 10 mL, 0 Refill(s), Pharmacy: [facility]/pharmacy #[id number] Start Date: 07/27/17 Stop Date: 08/26/17 Status: Ordered insulin lispro 2 unit, 0.02 mL, Route: SUB-Q, Drug form: SOLN, Bedtime, Dosing Weight 123.364, kg, PRN Blood Glucose Results, Start date: 07/23/17 20:54:00 CDT, Duration: 30 d ay, Stop date: 08/22/17 20:53:00 CDT Notes: (Same as: Humalog ) Roll in palms of hands gently; Do not shake `vigorou sly. "Single Patient Use Only " WASTE: F/P - Black; E - [facility] [address] able for 28 days at room temperature.Expires in days from Da te Start Date: 07/23/17 Stop Date: 07/27/17 Status: Discontinued insulin lispro 3 unit, 0.03 mL, Route: SUB-Q, Drug form: SOLN, Bedtime, Dosing Weight 123.364, kg, PRN Blood Glucose Results, Start date: 07/23/17 20:54:00 CDT, Duration: 30 d ay, Stop date: 08/22/17 20:53:00 CDT Notes: (Same as: Humalog ) Roll in palms of hands gently; Do not shake `vigorou sly. "Single Patient Use Only " WASTE: F/P - Black; E - [facility] [address] able for 28 days at room temperature.Expires in days from Da te Start Date: 07/23/17 Stop Date: 07/27/17 Status: Discontinued insulin lispro 1 unit, 0.01 mL, Route: SUB-Q, Drug form: SOLN, Bedtime, Dosing Weight 123.364, kg, PRN Blood Glucose Results, Start date: 07/23/17 20:54:00 CDT, Duration: 30 d ay, Stop date: 08/22/17 20:53:00 CDT Notes: (Same as: Humalog ) Roll in palms of hands gently; Do not shake `vigorou sly. "Single Patient Use Only " WASTE: F/P - Black; E - [facility] [address] able for 28 days at room temperature.Expires in days from Da te Start Date: 07/23/17 Stop Date: 07/27/17 Status: Discontinued insulin lispro 4 unit, 0.04 mL, Route: SUB-Q, Drug form: SOLN, Bedtime, Dosing Weight 123.364, kg, PRN Blood Glucose Results, Start date: 07/23/17 20:54:00 CDT, Duration: 30 d ay, Stop date: 08/22/17 20:53:00 CDT Notes: (Same as: Humalog ) Roll in palms of hands gently; Do not shake `vigorou sly. "Single Patient Use Only " WASTE: F/P - Black; E - [facility] [address] able for 28 days at room temperature.Expires in days from Da te Start Date: 07/23/17 Stop Date: 07/27/17 Status: Discontinued insulin lispro 10 unit, 0.1 mL, Route: SUB-Q, Drug form: SOLN, TID-Before Meals, Dosing Weight 123.364, kg, PRN Blood Glucose Results, Start date: 07/25/17 9:05:00 CDT, Durati on: 30 day, Stop date: 08/24/17 9:04:00 CDT Notes: (Same as: Humalog ) Roll in palms of hands gently; Do not shake `vigorou sly. "Single Patient Use Only " WASTE: F/P - Black; E - [facility] [address] able for 28 days at room temperature.Expires in days from Da te Start Date: 07/25/17 Stop Date: 07/27/17 Status: Discontinued insulin lispro 2 unit, 0.02 mL, Route: SUB-Q, Drug form: SOLN, TID-Before Meals, Dosing Weight 123.364, kg, PRN Blood Glucose Results, Start date: 07/25/17 9:05:00 CDT, Durati on: 30 day, Stop date: 08/24/17 9:04:00 CDT Notes: (Same as: Humalog ) Roll in palms of hands gently; Do not shake `vigorou sly. "Single Patient Use Only " WASTE: F/P - Black; E - [facility] able for 28 days at room temperature.Expires in days from Da te Start Date: 07/25/17 Stop Date: 07/27/17 Status: Discontinued insulin lispro 8 unit, 0.08 mL, Route: SUB-Q, Drug form: SOLN, TID-Before Meals, Dosing Weight 123.364, kg, PRN Blood Glucose Results, Start date: 07/25/17 9:05:00 CDT, Durati on: 30 day, Stop date: 08/24/17 9:04:00 CDT Notes: (Same as: Humalog ) Roll in palms of hands gently; Do not shake `vigorou sly. "Single Patient Use Only " WASTE: F/P - Black; E - [facility] able for 28 days at room temperature.Expires in days from Da te Start Date: 07/25/17 Stop Date: 07/27/17 Status: Discontinued insulin lispro 4 unit, 0.04 mL, Route: SUB-Q, Drug form: SOLN, TID-Before Meals, Dosing Weight 123.364, kg, PRN Blood Glucose Results, Start date: 07/25/17 9:05:00 CDT, Durati on: 30 day, Stop date: 08/24/17 9:04:00 CDT Notes: (Same as: Humalog ) Roll in palms of hands gently; Do not shake `vigorou sly. "Single Patient Use Only " WASTE: F/P - Black; E - [facility] able for 28 days at room temperature.Expires in days from Da te Start Date: 07/25/17 Stop Date: 07/27/17 Status: Discontinued insulin lispro 6 unit, 0.06 mL, Route: SUB-Q, Drug form: SOLN, TID-Before Meals, Dosing Weight 123.364, kg, PRN Blood Glucose Results, Start date: 07/25/17 9:05:00 CDT, Durati on: 30 day, Stop date: 08/24/17 9:04:00 CDT Notes: (Same as: Humalog ) Roll in palms of hands gently; Do not shake `vigorou sly. "Single Patient Use Only " WASTE: F/P - Black; E - [facility] [address] able for 28 days at room temperature.Expires in days from Da te Start Date: 07/25/17 Stop Date: 07/27/17 Status: Discontinued insulin lispro 2 unit, 0.02 mL, Route: SUB-Q, Drug form: SOLN, TID-Before Meals, Dosing Weight 123.364, kg, PRN Blood Glucose Results, Start date: 07/23/17 12:45:00 CDT, Durat ion: 30 day, Stop date: 08/22/17 12:44:00 CDT Notes: (Same as: Humalog ) Roll in palms of hands gently; Do not shake `vigorou sly. "Single Patient Use Only " WASTE: F/P - Black; E - [facility] [address] able for 28 days at room temperature.Expires in days from Da te Start Date: 07/23/17 Stop Date: 07/25/17 Status: Discontinued insulin lispro 3 unit, 0.03 mL, Route: SUB-Q, Drug form: SOLN, TID-Before Meals, Dosing Weight 123.364, kg, PRN Blood Glucose Results, Start date: 07/23/17 12:45:00 CDT, Durat ion: 30 day, Stop date: 08/22/17 12:44:00 CDT Notes: (Same as: Humalog ) Roll in palms of hands gently; Do not shake `vigorou sly. "Single Patient Use Only " WASTE: F/P - Black; E - [facility] [address] able for 28 days at room temperature.Expires in days from Da te Start Date: 07/23/17 Stop Date: 07/25/17 Status: Discontinued insulin lispro 4 unit, 0.04 mL, Route: SUB-Q, Drug form: SOLN, TID-Before Meals, Dosing Weight 123.364, kg, PRN Blood Glucose Results, Start date: 07/23/17 12:45:00 CDT, Durat ion: 30 day, Stop date: 08/22/17 12:44:00 CDT Notes: (Same as: Humalog ) Roll in palms of hands gently; Do not shake `vigorou sly. "Single Patient Use Only " WASTE: F/P - Black; E - [facility] [address] able for 28 days at room temperature.Expires in days from Da te Start Date: 07/23/17 Stop Date: 07/25/17 Status: Discontinued insulin lispro 5 unit, 0.05 mL, Route: SUB-Q, Drug form: SOLN, TID-Before Meals, Dosing Weight 123.364, kg, PRN Blood Glucose Results, Start date: 07/23/17 12:45:00 CDT, Durat ion: 30 day, Stop date: 08/22/17 12:44:00 CDT Notes: (Same as: Humalog ) Roll in palms of hands gently; Do not shake `vigorou sly. "Single Patient Use Only " WASTE: F/P - Black; E - [facility] [address] able for 28 days at room temperature.Expires in days from Da te Start Date: 07/23/17 Stop Date: 07/25/17 Status: Discontinued insulin lispro 1 unit, 0.01 mL, Route: SUB-Q, Drug form: SOLN, TID-Before Meals, Dosing Weight 123.364, kg, PRN Blood Glucose Results, Start date: 07/23/17 12:45:00 CDT, Durat ion: 30 day, Stop date: 08/22/17 12:44:00 CDT Notes: (Same as: Humalog ) Roll in palms of hands gently; Do not shake `shelbyorou sly. "Single Patient Use Only " WASTE: F/P - Black; E - [facility] [address] able for 28 days at room temperature.Expires in days from Da te Start Date: 07/23/17 Stop Date: 07/25/17 Status: Discontinued Insulin Syringes (U 100) 1 syr, SUB-Q, TID, # 100 syr, 0 Refill(s) Start Date: 07/27/17 Status: Ordered Lantus 100 units/mL 25 unit, 0.25 mL, Route: SUB-Q, Drug form: SOLN, Bedtime, Dosing Weight 123.364, kg, Start date: 07/25/17 21:00:00 CDT, Duration: 30 day, Stop date: 08/23/17 21 :00:00 CDT Notes: (Same as: Lantus)Do not hold insulin without contacting prescriberWASTE: F/P - Black; E - [facility] Trash [facility] "single patient use only" Start Date: 07/25/17 Stop Date: 07/27/17 Status: Discontinued Lantus 100 units/mL 10 unit, 0.1 mL, Route: SUB-Q, Drug form: SOLN, Bedtime, Dosing Weight 123.364, kg, Start date: 07/23/17 21:00:00 CDT, Duration: 30 day, Stop date: 08/21/17 21: 00:00 CDT Notes: (Same as: Lantus)Do not hold insulin without contacting prescriberWASTE: F/P - Black; E - [facility] Tr[facility] "single patient use only" Start Date: 07/23/17 Stop Date: 07/25/17 Status: Discontinued Lantus 100 units/mL 10 unit, 0.1 mL, Route: SUB-Q, Drug form: SOLN, Bedtime, Dosing Weight 123.364, kg, Start date: 07/27/17 21:00:00 CDT, Duration: 30 day, Stop date: 08/25/17 21: 00:00 CDT Notes: (Same as: Lantus)Do not hold insulin without contacting prescriberWASTE: F/P - Black; E - [facility] "single patient use only" Start Date: 07/27/17 Stop Date: 07/27/17 Status: Canceled Lasix 20 mg, 2 mL, Route: IVP, Drug form: INJ, ONCE, Dosing Weight 115.909, kg, Start date: 07/22/17 7:48:00 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, Stop date: 07/22/17 7:48:00 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 Notes: (Same as: Lasix) Start Date: 07/22/17 Stop Date: 07/22/17 Status: Completed Levemir 10 unit, Route: SUB-Q, Bedtime, Dosing Weight 123.364, kg, Start date: 07/27/17 21:00:00 CDT, Duration: 30 day, Stop date: 08/25/17 21:00:00 CDT Start Date: 07/27/17 Stop Date: 07/27/17 Status: Deleted lisinopril 5 mg, 1 tab, Route: PO, Drug form: TAB, Daily, Dosing Weight 115.909, kg, Start date: 07/21/17 9:00:00 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, Duration: 30 day, Stop date: 08/19/17 9:00:00 CDT Notes: (Same as: Prinivil, Zestril) Start Date: 07/21/17 Stop Date: 07/27/17 Status: Discontinued loratadine 10 mg, Route: PO, Drug form: TAB, Daily, Dosing Weight 123.364, kg, PRN Allergie s, Start date: 07/25/17 9:26:00 CDT, Duration: 30 day, Stop date: 08/24/17 9:25: 00 CDT Start Date: 07/25/17 Stop Date: 07/25/17 Status: Deleted Lovenox 40 mg, 0.4 mL, Route: SUB-Q, Drug form: INJ, [id number], Dosing Weight 115.909, kg , Start date: 07/21/17 16:00:00 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, Duration: 30 day, Stop date: 08/19/17 16:00 :00 CDT Notes: (Same as: Lovenox) Start Date: 07/21/17 Stop Date: 07/27/17 Status: Discontinued metFORMIN 1000 mg oral tablet 500 mg=0.5 tab, PO, QPM, 0 Refill(s) Start Date: 07/20/17 Status: Ordered metFORMIN 1000 mg oral tablet 1,000 mg=1 tab, PO, QAM, 0 Refill(s) Start Date: 07/20/17 Status: Ordered [place] for Injection Syringe Misc/Other 1 ea, MISC, Daily, # 30 ea, 11 Refill(s) Start Date: 07/27/17 Stop Date: 07/24/29 Status: Ordered OneTouch Ultra Blue Blood Glucose Test Strip 1 ea, MISC, TID, Use for blood glucose monitoring., # 100 ea, Insulin dependent, Does not use insulin pump, Last DM eval date 07/27/17, 11 Refill(s) Start Date: 07/27/17 Stop Date: 07/24/29 Status: Ordered OneTouch Ultra2 Blood Glucose Meter 1 ea, MISC, ONCE, Use for blood glucose monitoring, # 1 ea, Insulin dependent, D oes not use insulin pump, Last DM eval date 07/27/17, 0 Refill(s) Start Date: 07/27/17 Status: Ordered pneumococcal 23-valent vaccine 0.5 mL, Route: IM, Drug Form: INJ, Daily, Start date: 07/21/17 9:00:00 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, Dura tion: 1 doses or times, Stop date: 07/21/17 9:00:00 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 Notes: (Same as: Pneumovax 23) Refrigerate Start Date: 07/21/17 Stop Date: 07/21/17 Status: Completed predniSONE 40 mg, 2 tab, Route: PO, Drug form: TAB, Daily, Dosing Weight 123.364, kg, Start date: 07/26/17 9:00:00 CDT, Duration: 30 day, Stop date: 08/24/17 9:00:00 CDT Notes: Take with food. Start Date: 07/26/17 Stop Date: 07/27/17 Status: Discontinued predniSONE 20 mg oral tablet 40 mg=2 tab, PO, Daily, X 14 day, # 28 tab, 0 Refill(s), Pharmacy: [facility]/pharmacy #[id number] Start Date: 07/27/17 Stop Date: 08/10/17 Status: Completed Saline Flush 0.9% 10 ml, Route: IVP, Drug Form: INJ, Dosing Weight 106.818, kg, PRN, PRN Line Flus h, Start date: 07/20/17 17:15:00 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, Duration: 30 day, Stop date: 08/19/17 18:1 4:00 CDT Notes: (Same as: BD Posiflush) Start Date: 07/20/17 Stop Date: 07/27/17 Status: Discontinued Singulair 10 mg, 1 tab, Route: PO, Drug form: TAB, QPM, Dosing Weight 115.909, kg, Start d ate: 07/21/17 17:00:00 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, Duration: 30 day, Stop date: 08/19/17 17:00:00 CDT Notes: (Same as:Singulair) Start Date: 07/21/17 Stop Date: 07/27/17 Status: Discontinued Singulair 10 mg oral tablet 10 mg=1 tab, PO, QPM, 0 Refill(s) Start Date: 07/20/17 Status: Ordered Sodium Chloride 0.9% IV 1,000 mL 1,000 mL, Rate: 100 ml/hr, Infuse over: 10 hr, Route: IV, Dosing Weight 106.818 kg, Total Volume: 1,000, Start date: 07/20/17 17:15:00 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, Duration: 30 day, St op date: 08/19/17 17:14:00 CDT, 2.17, m2 Start Date: 07/20/17 Stop Date: 07/21/17 Status: Discontinued Solu-MEDROL 40 mg, 1 mL, Route: IVP, Drug form: INJ, Daily, Dosing Weight 115.909, kg, Start date: 07/26/17 9:00:00 CDT, Duration: 30 day, Stop date: 08/24/17 9:00:00 CDT Notes: (Same as:Solu-MEDROL, A-Methapred) Start Date: 07/26/17 Stop Date: 07/25/17 Status: Canceled Solu-MEDROL 40 mg, 1 mL, Route: IVP, Drug form: INJ, Q12H, Dosing Weight 115.909, kg, Start date: 07/24/17 21:00:00 CDT, Duration: 30 day, Stop date: 08/23/17 9:00:00 CDT Notes: (Same as:Solu-MEDROL, A-Methapred) Start Date: 07/24/17 Stop Date: 07/25/17 Status: Discontinued Solu-MEDROL 40 mg, 1 mL, Route: IVP, Drug form: INJ, Q8H, Dosing Weight 115.909, kg, Start d ate: 07/22/17 8:00:00 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, Duration: 30 day, Stop date: 08/21/17 0:00:00 CDT Notes: (Same as:Solu-MEDROL, A-Methapred) Start Date: 07/22/17 Stop Date: 07/24/17 Status: Discontinued Symbicort 80/4.5 inhalation aerosol with adapter 2 puff, INHALATION, Daily, PRN Shortness of breath, 0 Refill(s) Start Date: 07/20/17 Status: Ordered Symbicort 80/4.5 inhalation aerosol with adapter 2 inhalation, Route: INHALATION, Drug Form: AERO/A, Dosing Weight 115.909, kg, D aily, PRN Shortness of breath, Start date: 07/20/17 20:45:00 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, Duration: 30 d ay, Stop date: 08/19/17 20:44:00 CDT Notes: (Same as: Symbicort)WASTE: Aerosol - Return to Pharmacy Start Date: 07/20/17 Stop Date: 07/27/17 Status: Discontinued tramadol 50 mg oral tablet 50 mg=1 tab, PO, Q12H, 0 Refill(s) Start Date: 07/20/17 Status: Ordered tramadol 50 mg oral tablet 50 mg, 1 tab, Route: PO, Drug form: TAB, Q12H, Dosing Weight 115.909, kg, Start date: 07/20/17 21:00:00 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, Duration: 30 day, Stop date: 08/19/17 9:00:00 CDT Notes: Not to exceed 400mg/day. (Same As: Ultram) Start Date: 07/20/17 Stop Date: 07/27/17 Status: Discontinued Tylenol 650 mg, 20.3 mL, Route: PO, Drug form: LIQ, Q4H, Dosing Weight 115.909, kg, PRN Headache 7-10, Start date: 07/20/17 18:17:00 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, Duration: 30 day, Stop date: 0 08/19/17 18:16:00 CDT Notes: Max ynlyunfxuvklf=4059so/day (4 gm/day). (Same as: Tylenol) Start Date: 07/20/17 Stop Date: 07/27/17 Status: Discontinued Results ELECTROLYTES 1 2 3 Most recent to oldest [Reference Range]: 138 mEq/L (07/26/17 6:29 AM) 137 mEq/L (07/23/17 6:09 AM) 138 mEq/L (07/21/17 10:47 AM) Sodium Lvl [135-145 mEq/L] 4.1 mEq/L (07/26/17 6:29 AM) 4.4 mEq/L (07/23/17 6:09 AM) 5.1 mEq/L (07/21/17 10:47 AM) Potassium Lvl [3.5-5.1 mEq/L] 101 mEq/L (07/26/17 6:29 AM) 103 mEq/L (07/23/17 6:09 AM) 102 mEq/L (07/21/17 10:47 AM) Chloride Lvl [95-109 mEq/L] 29 mEq/L (07/26/17 6:29 AM) 23 mEq/L *LOW* (07/23/17 6:09 AM) 28 mEq/L (07/21/17 10:47 AM) CO2 [24-32 mEq/L] 12.1 mEq/L (07/26/17 6:29 AM) 15.4 mEq/L (07/23/17 6:09 AM) 13.1 mEq/L (07/21/17 10:47 AM) AGAP [10.0-20.0 mEq/L] CHEM PANEL 1 2 3 Most recent to oldest [Reference Range]: 0.73 mg/dL (07/26/17 6:29 AM) 0.66 mg/dL (07/23/17 6:09 AM) 0.71 mg/dL (07/21/17 10:47 AM) Creatinine Lvl [0.50-1.40 mg/dL] 90 mL/min/1.73m2 1 *NA* (07/26/17 6:29 AM) 97 mL/min/1.73m2 2 *NA* (07/23/17 6:09 AM) 93 mL/min/1.73m2 3 *NA* (07/21/17 10:47 AM) eGFR 28 mg/dL *HI* (07/26/17 6:29 AM) 18 mg/dL (07/23/17 6:09 AM) 12 mg/dL (07/21/17 10:47 AM) BUN [7-22 mg/dL] 27 *HI* (07/23/17 6:09 AM) 17 (07/21/17 10:47 AM) 21 (07/20/17 5:46 PM) B/C Ratio [6-25] 106 mg/dL *HI* (07/26/17 6:29 AM) 219 mg/dL *HI* (07/23/17 6:09 AM) 116 mg/dL *HI* (07/21/17 10:47 AM) Glucose Lvl [70-99 mg/dL] 0.7 mg/dL (07/20/17 12:05 PM) POC Creatinine [0.5-1.4 mg/dL] 8.1 g/dL (07/23/17 6:09 AM) 7.6 g/dL (07/21/17 10:47 AM) 7.9 g/dL (07/20/17 5:46 PM) Total Protein [6.4-8.4 g/dL] 3.3 g/dL *LOW* (07/23/17 6:09 AM) 3.1 g/dL *LOW* (07/21/17 10:47 AM) 3.5 g/dL (07/20/17 5:46 PM) Albumin Lvl [3.5-5.0 g/dL] 4.8 g/dL *HI* (07/23/17 6:09 AM) 4.5 g/dL *HI* (07/21/17 10:47 AM) 4.4 g/dL *HI* (07/20/17 5:46 PM) Globulin [2.7-4.2 g/dL] 0.7 (07/23/17 6:09 AM) 0.7 (07/21/17 10:47 AM) 0.8 (07/20/17 5:46 PM) A/G Ratio [0.7-1.6] 8.0 mg/dL *LOW* (07/26/17 6:29 AM) 8.9 mg/dL (07/23/17 6:09 AM) 8.7 mg/dL (07/21/17 10:47 AM) Calcium Lvl [8.5-10.5 mg/dL] 1.7 mg/dL *LOW* (07/20/17 12:12 PM) Magnesium Lvl [1.8-2.4 mg/dL] 28 unit/L (07/23/17 6:09 AM) 27 unit/L (07/21/17 10:47 AM) 24 unit/L (07/20/17 5:46 PM) ALT [0-65 unit/L] 24 unit/L (07/23/17 6:09 AM) 33 unit/L (07/21/17 10:47 AM) 35 unit/L (07/20/17 5:46 PM) AST [0-37 unit/L] 87 unit/L (07/23/17 6:09 AM) 82 unit/L (07/21/17 10:47 AM) 89 unit/L (07/20/17 5:46 PM) Alk Phos [39-136 unit/L] 0.5 mg/dL (07/23/17 6:09 AM) 0.8 mg/dL (07/21/17 10:47 AM) 1.0 mg/dL (07/20/17 5:46 PM) Bili Total [0.2-1.3 mg/dL] 1.3 mMol/L (07/20/17 3:29 PM) 2.2 mMol/L (07/20/17 12:12 PM) Lactic Acid Lvl [0.5-2.2 mMol/L] <0.05 ng/mL (07/20/17 5:46 PM) Procalcitonin Lvl [0.00-0.10 ng/mL] 1Result Comment: The eGFR is calculated using [...] be mul tiplied by the estimated BMI. CARDIAC ENZYMES 1 2 3 Most recent to oldest [Reference Range]: 91 unit/L (07/20/17 12:12 PM) Total CK [12-191 unit/L] 1.8 ng/mL (07/20/17 12:12 PM) CK MB [0.5-3.6 ng/mL] 2.0 (07/20/17 12:12 PM) CK MB Index [0.0-2.5] <0.02 ng/mL (07/20/17 12:12 PM) Troponin-I [0.00-0.40 ng/mL] 40 pg/mL (07/23/17 6:09 AM) 12 pg/mL (07/20/17 12:12 PM) BNP [<=100 pg/mL] SPECIAL CHEMISTRY 1 2 3 Most recent to oldest [Reference Range]: 6.7 % *HI* (07/21/17 10:47 AM) Hgb A1C [<=5.6 %] URINE AND STOOL 1 2 3 Most recent to oldest [Reference Range]: Slight *ABN* (07/20/17 3:24 PM) UA Turbidity [Clear] Yellow *NA* (07/20/17 3:24 PM) UA Color [Yellow] 5.0 (07/20/17 3:24 PM) UA pH [5.0-8.0] >=1.050 *ABN* (07/20/17 3:24 PM) UA Spec Grav [<=1.030] Negative mg/dL *NA* (07/20/17 3:24 PM) UA Glucose [Negative mg/dL] Negative (07/20/17 3:24 PM) UA Blood [Negative] Negative mg/dL *NA* (07/20/17 3:24 PM) UA Ketones [Negative mg/dL] Negative mg/dL (07/20/17 3:24 PM) UA Protein [Negative mg/dL] <=1.0 mg/dL *NA* (07/20/17 3:24 PM) UA Urobilinogen [0.1-1.0 mg/dL] Negative *NA* (07/20/17 3:24 PM) UA Bili [Negative] Small *ABN* (07/20/17 3:24 PM) UA Leuk Est [Negative] Negative (07/20/17 3:24 PM) UA Nitrite [Negative] 29 /HPF *HI* (07/20/17 3:24 PM) UA WBC [0-5 /HPF] 4 /HPF *HI* (07/20/17 3:24 PM) UA RBC [0-2 /HPF] Occasional /HPF *NA* (07/20/17 3:24 PM) UA Bacteria [None Seen /HPF] Occasional /LPF *NA* (07/20/17 3:24 PM) UA Sq Epi [Few /LPF] Few /LPF *NA* (07/20/17 3:24 PM) UA Mucus [None Seen /LPF] IMMUNOLOGY 1 2 3 Most recent to oldest [Reference Range]: Negative (07/22/17 8:42 AM) SIMONE [Negative] 18.3 mg/L *HI* (07/22/17 8:42 AM) CRP [<=2.9 mg/L] HEMATOLOGY 1 2 3 Most recent to oldest [Reference Range]: 8.2 K/CMM (07/26/17 6:29 AM) 6.3 K/CMM (07/21/17 10:47 AM) 7.8 K/CMM (07/20/17 12:12 PM) WBC [3.7-10.4 K/CMM] 5.22 M/CMM (07/26/17 6:29 AM) 5.04 M/CMM (07/21/17 10:47 AM) 5.36 M/CMM (07/20/17 12:12 PM) RBC [4.20-5.40 M/CMM] 14.1 g/dL (07/26/17 6:29 AM) 13.6 g/dL (07/21/17 10:47 AM) 14.7 g/dL (07/20/17 12:12 PM) Hgb [12.0-16.0 g/dL] 43.3 % (07/26/17 6:29 AM) 41.7 % (07/21/17 10:47 AM) 45.0 % (07/20/17 12:12 PM) Hct [36.0-48.0 %] 82.9 fL (07/26/17 6:29 AM) 82.8 fL (07/21/17 10:47 AM) 84.0 fL (07/20/17 12:12 PM) MCV [80.0-98.0 fL] 27.1 pg (07/26/17 6:29 AM) 26.9 pg *LOW* (07/21/17 10:47 AM) 27.5 pg (07/20/17 12:12 PM) MCH [27.0-31.0 pg] 32.7 g/dL (3/14/18 6:29 AM) 32.6 g/dL (07/21/17 10:47 AM) 32.7 g/dL (07/20/17 12:12 PM) MCHC [32.0-36.0 g/dL] 15.1 % *HI* (07/26/17 6:29 AM) 15.2 % *HI* (07/21/17 10:47 AM) 15.0 % *HI* (07/20/17 12:12 PM) RDW [11.5-14.5 %] 9.1 fL (07/26/17 6:29 AM) 8.7 fL (07/21/17 10:47 AM) 9.2 fL (07/20/17 12:12 PM) MPV [7.4-10.4 fL] 198 K/CMM (07/26/17 6:29 AM) 183 K/CMM (07/21/17 10:47 AM) 215 K/CMM (07/20/17 12:12 PM) Platelet [133-450 K/CMM] 73.5 % (07/26/17 6:29 AM) 74.4 % (07/21/17 10:47 AM) 74.1 % (07/20/17 12:12 PM) Segs [45.0-75.0 %] 16.2 % *LOW* (07/26/17 6:29 AM) 12.4 % *LOW* (07/21/17 10:47 AM) 13.7 % *LOW* (07/20/17 12:12 PM) Lymphocytes [20.0-40.0 %] 10.0 % (07/26/17 6:29 AM) 7.0 % (07/21/17 10:47 AM) 6.8 % (07/20/17 12:12 PM) Monocytes [2.0-12.0 %] 0.2 % (07/26/17 6:29 AM) 5.3 % *HI* (07/21/17 10:47 AM) 4.4 % *HI* (07/20/17 12:12 PM) Eosinophils [0.0-4.0 %] 0.1 % (07/26/17 6:29 AM) 0.9 % (07/21/17 10:47 AM) 1.0 % (07/20/17 12:12 PM) Basophils [0.0-1.0 %] 6.1 K/CMM (07/26/17 6:29 AM) 4.7 K/CMM (07/21/17 10:47 AM) 5.8 K/CMM (07/20/17 12:12 PM) Segs-Bands # [1.5-8.1 K/CMM] 1.3 K/CMM (07/26/17 6:29 AM) 0.8 K/CMM *LOW* (07/21/17 10:47 AM) 1.1 K/CMM (07/20/17 12:12 PM) Lymphocytes # [1.0-5.5 K/CMM] 0.8 K/CMM (07/26/17 6:29 AM) 0.4 K/CMM (07/21/17 10:47 AM) 0.5 K/CMM (07/20/17 12:12 PM) Monocytes # [0.0-0.8 K/CMM] 0.3 K/CMM (07/21/17 10:47 AM) 0.3 K/CMM (07/20/17 12:12 PM) Eosinophils # [0.0-0.5 K/CMM] 0.1 K/CMM (07/21/17 10:47 AM) 0.1 K/CMM (07/20/17 12:12 PM) Basophils # [0.0-0.2 K/CMM] 25 mm/hr *HI* (07/22/17 8:42 AM) Sed Rate [0-20 mm/hr] 13.7 seconds (07/20/17 12:12 PM) PT [12.0-14.7 seconds] 1.05 (07/20/17 12:12 PM) INR [0.85-1.17] VIRAL - SEROLOGY 1 2 3 Most recent to oldest [Reference Range]: Negative (07/20/17 9:10 PM) Influ A [Negative] Negative (07/20/17 9:10 PM) Influ B [Negative] Immunizations Given and Recorded Vaccine Date Status Refusal Reason pneumococcal 23-valent vaccine 07/21/17 Given Procedures Procedure Date Related Diagnosis Body Site Status Abdominal hysterectomy 05/15/89 Completed Reposition of lens of eye 05/15/89 Completed Breast lumpectomy Completed Lobectomy1 Completed 16321 Social History Social History Type Response Smoking Status Former smoker; Type: Cigarettes; Exposure to Tobacco Smoke None; Cigarette Smoking Last 365 Days No; Reg Smoking Cessation Counseling No entered on: 07/20/17 Assessment and Plan Extracted from: Title: Infectious Disease Author: Wojciech Colin MD Date: 07/27/17 [facility] INFECTIOUS DISEASE PROGRESS NOTE Tahir Felix M.D. Syed W. Hasan, M.D. [phone] REASON FOR CONSULTATION & FOLLOW-UP: UTI Pneumonia SUBJECTIVE: INTERVAL HISTORY: No acute events. Feeling well. ROS: CONST: No fever or chills RESP: No cough or SOB GI: No abdominal pain or diarrhea OBJECTIVE: PHYSICAL EXAMINATION: VitalsTmp(F)[id number] 07/27 08:56 1696--- 07/27 08:55 96 2.0L/m 07/27 07:[id number]/240411--- 07/27 05:0398.060198/6018------ 07/27 00:0898.493300/7618------ 24 Hr Tmax: 98.6F (37.00c) at 07/27 00:08Vital Signs are the last 5 in the past 48 hours. GEN: No acute distress HEENT: Anicteric sclerae; No oral thrush or erythema; Moist membranes LUNG: Clear to auscultation bilaterally; No wheeze, rhonchi, or crackles HEART: RRR; +S1/S2; No murmurs, rubs, or gallops Lines, Tubes, and Drains: 07/20/2017 17:30 Peripheral Lines: Antecubital Right Over the needle catheter MEDICATIONS: Scheduled Meds (11): 07/21/17 cefTRIAXone + sterile water 10 mL 1 gm IVP [id number] 120 ml/hr 03/08/18 doxepin (doxepin 25 mg oral capsule) 25 mg PO Bedtime 07/21/17 enoxaparin (Lovenox) 40 mg SUB-Q [id number] 07/21/17 fluticasone-vilanterol (Breo Ellipta 100 mcg-25 mcg inhalation powder) 1 inhalation INHALATION QPM 07/21/17 gabapentin (gabapentin 300 mg oral capsule) 300 mg PO BID 07/25/17 insulin glargine (Lantus 100 units/mL) 25 unit SUB-Q Bedtime 0 ml/hr 07/21/17 lisinopril 5 mg PO Daily 07/21/17 montelukast (Singulair) 10 mg PO QPM 07/26/17 predniSONE 40 mg PO Daily 07/21/17 rosuvastatin (Crestor) 5 mg PO Daily 07/20/17 tramadol (tramadol 50 mg oral tablet) 50 mg PO Q12H Allergies (2) ActiveReaction Surgical TapeNone documented sulfa drugsNone documented LABORATORY (All labs have been reviewed.): Labs (Last four charted values) WBC 8.2(JUL 26)6.3(JUL 21)7.8(JUL 20) Hgb 14.1(JUL 26)13.6(JUL 21)14.7(JUL 08) Hct 43.3(JUL 26)41.7(JUL 21)45.0(JUL 08) Plt 198(JUL 26)183(JUL 09)215(JUL 08) Na 138(JUL 26)137(JUL 23)138(JUL 21)136(JUL 08) K 4.1(JUL 26)4.4(JUL 23)5.1(JUL 21)4.7(JUL 08) CO2 29(JUL 26)L 23(JUL 23)28(JUL 21)26(JUL 08) Cl 101(JUL 26)103(JUL 23)102(JUL 09)101(JUL 08) Cr 0.73(JUL 26)0.66(JUL 23)0.71(JUL 21)0.75(JUL 08) BUN H 28(JUL 26)18(JUL 23)12(JUL 09)16(JUL 08) Glucose Random H 106(JUL 26)H 219(JUL 11)H 116(JUL 21)99(JUL 08) Mg L 1.7(JUL 20) Ca L 8.0(MAR 14)8.9(JUL 23)8.7(JUL 21)8.8(JUL 20) PT 13.7(JUL 20) INR 1.05(JUL 20) Troponin <0.02(JUL 20) CK MB 1.8(JUL 20) Total CK 91(JUL 20) Alk Phos: 87 unit/L (07/23/17 07:20:40) A/G Ratio: 0.7 (07/23/17 07:20:40) ALT: 28 unit/L (07/23/17 07:20:40) Albumin Lvl: 3.3 g/dL Low (07/23/17 07:20:40) Bili Total: 0.5 mg/dL (07/23/17 07:20:40) Total Protein: 8.1 g/dL (07/23/17 07:20:40) Globulin: 4.8 g/dL High (07/23/17 07:20:40) AST: 24 unit/L (07/23/17 07:20:40) Sed Rate: 25 mm/hr High (07/22/17 10:24:33)No qualifying data available. MICROBIOLOGY: All cultures have been reviewed. IMAGING/TESTS: Recent studies have been reviewed. ASSESSMENT & PLAN: 62 yo F presents with: * Right Lobar Pneumonia vs. Pneumonitis * Asymptomatic Bacteriuria * Non Small Cell Lung Cancer * T2DM - Afebrile. - Continue ceftriaxone. - OK to give last dose today early if plan for discharge. - Discussed with IM. CURRENT ANTIMICROBIALS: Ceftriaxone # 7 / 7 Extracted from: Title: Infectious Disease Author: Wojciech Colin MD Date: 07/24/17 [facility] INFECTIOUS DISEASE CONSULTATION NOTE Tahir Felix M.D. Syed W. Hasan, M.D. [phone] REQUESTING PHYSICIAN: Dr. Henrry Weeks REASON FOR CONSULTATION: UTI CHIEF COMPLAINT: Shortness of breath HISTORY OF PRESENT ILLNESS: Ms. Jazmine London is a 62 year old lady, with history of non small cell lung cancer s/p right middle lobectomy and radiation therapy, who presents with increasing shortness of breath and dry cough for the past month that has been worsening. Upon admission, she had low oxygen saturation. She denies productive cough or sputum. She denies fever or chills. She had some frequent UTIs inteh recent past but denies any dysuria or flank pain. She had possible right lobar pneumonia and was started empirically on antibiotics and steroids. She is currently doing better. REVIEW OF SYSTEMS: CONSTITUTIONAL: Denies fever, chills, or night sweats. EYES: Denies blurry vision or eye pain. ENT: No sore throat or neck pain. RESPIRATORY: + shortness of breath or cough. CARDIOVASCULAR: + chest pain or palpitations. GASTROINTESTINAL: Denied nausea, vomiting, diarrhea, or abdominal pain. GENITOURINARY: Denies dysuria, frequency, or urgency. MUSCULOSKELETAL: No joint pain, muscle aches, or swelling. NEUROLOGIC: No headaches or focal weakness. SKIN: No rashes or lesions. ENDOCRINE: Denies history of polyuria, polydipsia, heat or cold intolerance. HEME/LYMPH: Denies bleeding, bruising, or swollen glands. PSYCH: No depression or anxiety. PAST MEDICAL/SURGICAL HISTORY: Biopsy of lung using computed tomography (CT) guidance Hard of hearing Heart palpitations GERD (gastroesophageal reflux disease) Acute rheumatic arthritis Back pain Hand numbness Benign lipomatous tumor Reposition of lens of eye: 05/15/89 Abdominal hysterectomy: 05/15/89 Breast lumpectomy Lobectomy SOCIAL HISTORY: Tobacco Details: Use: Former smoker. Type: Cigarettes. Tobacco smoke exposure: None. Did the Patient Smoke Cigarettes Anytime During the Last 365 Days? No. Cessation Counseling Provided? No. FAMILY HISTORY: Mother: High blood pressure; Type 2 diabetes mellitus Sister: Irritable bowel syndrome PHYSICAL EXAMINATION: VitalsTmp(F)[id number] 07/24 15:52 97--- 07/24 15:51 88--- 07/24 15:50 87--- 07/24 15:[id number]--- 07/24 11:[id number]/[id number]--- 24 Hr Tmax: 98.4F (36.89c) at 07/23 23:39Vital Signs are the last 5 in the past 48 hours. GEN: No acute distress, conversant HEENT: Sclera white; No thrush or erythema; Moist membranes LUNG: Clear to auscultation bilaterally; No wheeze, rhonchi, or crackles HEART: RRR; +S1/S2; No murmurs, rubs, or gallops ABD: +BS; Soft; Non-distended; Non-tender EXT: No clubbing, cyanosis, or edema NEURO: Alert and oriented; PERRL; No gross focal deficits SKIN: No rashes, ecchymosis, or lesions PSYCH: Appropriate affect Lines, Tubes, and Drains: 07/20/2017 17:30 Peripheral Lines: Antecubital Right Over the needle catheter MEDICATIONS: Scheduled Meds (11): 07/21/17 cefTRIAXone + sterile water 10 mL 1 gm IVP [id number] 120 ml/hr 07/20/17 doxepin (doxepin 25 mg oral capsule) 25 mg PO Bedtime 07/21/17 enoxaparin (Lovenox) 40 mg SUB-Q [id number] 07/21/17 fluticasone-vilanterol (Breo Ellipta 100 mcg-25 mcg inhalation powder) 1 inhalation INHALATION QPM 07/21/17 gabapentin (gabapentin 300 mg oral capsule) 300 mg PO BID 07/23/17 insulin glargine (Lantus 100 units/mL) 10 unit SUB-Q Bedtime 0 ml/hr 07/21/17 lisinopril 5 mg PO Daily 07/24/17 methylPREDNISolone (Solu-MEDROL) 40 mg IVP Q12H 07/21/17 montelukast (Singulair) 10 mg PO QPM 07/21/17 rosuvastatin (Crestor) 5 mg PO Daily 07/20/17 tramadol (tramadol 50 mg oral tablet) 50 mg PO Q12H ALLERGIES: Allergies (2) ActiveReaction Surgical TapeNone documented sulfa drugsNone documented LABORATORY (Reviewed): Labs (Last four charted values) WBC 6.3(JUL 21)7.8(JUL 20) Hgb 13.6(JUL 21)14.7(JUL 20) Hct 41.7(JUL 21)45.0(JUL 20) Plt 183(JUL 21)215(JUL 20) Na 137(JUL 23)138(JUL 21)136(JUL 20)137(JUL 08) K 4.4(JUL 23)5.1(JUL 21)4.7(JUL 20)4.2(JUL 20) CO2 L 23(JUL 23)28(JUL 21)26(JUL 20)26(JUL 20) Cl 103(JUL 23)102(JUL 21)101(JUL 20)100(JUL 20) Cr 0.66(JUL 23)0.71(JUL 21)0.75(JUL 20)0.84(JUL 20) BUN 18(JUL 23)12(JUL 21)16(JUL 20)19(JUL 20) Glucose Random H 219(JUL 23)H 116(JUL 21)99(JUL 20)H 142(JUL 20) Mg L 1.7(JUL 20) Ca 8.9(JUL 23)8.7(JUL 21)8.8(JUL 20)8.7(JUL 20) PT 13.7(JUL 20) INR 1.05(JUL 20) Troponin <0.02(JUL 20) CK MB 1.8(JUL 20) Total CK 91(JUL 20) Alk Phos: 87 unit/L (07/23/17 07:20:40) A/G Ratio: 0.7 (07/23/17 07:20:40) ALT: 28 unit/L (07/23/17 07:20:40) Albumin Lvl: 3.3 g/dL Low (07/23/17 07:20:40) Bili Total: 0.5 mg/dL (07/23/17 07:20:40) Total Protein: 8.1 g/dL (07/23/17 07:20:40) Globulin: 4.8 g/dL High (07/23/17 07:20:40) AST: 24 unit/L (07/23/17 07:20:40) Sed Rate: 25 mm/hr High (07/22/17 10:24:33)No qualifying data available. MICROBIOLOGY (Reviewed): Urine: E.coli, Klebsiella IMAGING (Reviewed): CXR: Interval resolution of vascular congestion. Right mid to lower lung zone opacity, unchanged. ASSESSMENT & PLAN: 62 yo F presents with: * Right Lobar Pneumonia vs. Pneumonitis * Asymptomatic Bacteriuria * Non Small Cell Lung Cancer * T2DM - Patient presents with SOB and cough with possible underlying pneumonia for pneumonitis from previous lung cancer treatment. She appears asymptomatic from urinary standpoint, may be bacteriuria. Continue ceftriaxone. Transition to cefpodoxime 200mg PO BID to complete 7 day course, currently day 4. Will continue to follow. Extracted from: Title: Admission H&P Author: Henrry Weeks MD Date: 07/20/17 Impression and Plan 62 years old obese female with past medical history of COPD diabetes mellitus and hyperlipidemia and lung cancer(reported to be in remission), presented to emergency department with chief complaint of exertional dyspnea for two months duration, worsening in the last two days, admitted to medical floor with following impression. Assessment and plan: 1. Exertional Dyspnea: reported history of worsening shortness of breath and exertion; and oxygen saturation of 85%. CT chest is consistent with medial lobe infiltrates; not especially bilateral air trapping; and ruled out pulmonary embolism. Patient has given history of lung cancer; status post one-time lobectomy; and multiple aperture of radiation therapy. Patient also reports to have diagnosis of COPD. Patient is morbidly obese. BNP is low 59. Her shortness of breath at exertion could be secondary to multiple factors. We continue oxygen supplement, antibiotics, nebulization. Will get pulmonology consult in the morning. Her WBC is normal; Lactic acid is 1.3; will get procalcitonin and ABG 2. Diabetes mellitus: continue insulin sliding scale 3: hyperlipidemia: we continue home medication once available 4. COPD: not in excess elevation; we continue nebulization; will monitor clinically 5. Lung cancer: to follow-up with primary oncologists as an outpatient upon discharge 5. DVT prophylaxis with SCD for now 6. UTI- follow up with urine culture Problems: exertional shortness of breath community acquired pneumonia COPD lung cancer diabetes mellitus hyperlipidemia Urinary tract infection Obesity Discussed with the patient/family member(s) about the plan of care. The above note is created using voice recognization software. There may still be errors in spellings/word inspite of careful proof-reading. Pleae interprete accordingly. [facility] Hospitalist/Internal Medicine Henrry Weeks MD
--- OUTSIDE RECORDS SUMMARY | 2018-03-09 11:23 | XMS REPORT ---
Author Author Barron De Jesus Organization [employer] Address Unknown Phone Unavailable Care Team Providers Care Fairing Worker Name Role Phone Barron De Jesus CP Unavailable Allergies No Known Allergies Problems Problem Type Condition Code Onset Dates Condition Status Problem Pure hyperglyceridemia 272.1 Active Problem Benign hypertensive heart disease without heart failure 402.10 Active Problem Malignant neoplasm of middle lobe, bronchus, or lung 162.4 Active Problem Obesity, unspecified 278.00 Active Problem Body mass index (BMI) 38.0-38.9, adult Z68.38 Active Problem Type 2 diabetes mellitus with diabetic neuropathy, unspecified E11.40 Active Problem Screening for cardiovascular disorders Z13.6 Active Problem Obesity, unspecified E66.9 Active Problem Malignant neoplasm of middle lobe, bronchus or lung C34.2 Active Problem Hypertensive heart disease without heart failure I11.9 Active Problem Pure hyperglyceridemia E78.1 Active Medications No Known Medications Results No Known Results Summary Purpose [employer] Submission
--- OUTSIDE RECORDS SUMMARY | 2018-03-09 11:23 | XMS REPORT | Summary of Care ---
Author Author [facility] [place] Organization [facility] [place] Address Unknown Phone Unavailable Encounter HQ David_jaquan(FIN) [id number] Date(s): 03/28/16 - 03/28/16 [facility] [place] [address] [place] [phone] Discharge Disposition: Home or Self Care Attending Physician: Laurita Gilbert MD Vital Signs [...] sulfa drugs Active Surgical Tape Active Medications No data available for this section Results No data available for this section Immunizations No data available for this section Procedures Procedure Date Related Diagnosis Body Site Abdominal hysterectomy 05/15/89 Reposition of lens of eye 05/15/89 Breast lumpectomy Lobectomy1 73322 Social History Social History Type Response Smoking Status Former smoker; Type: Cigarettes; Exposure to Tobacco Smoke None; Cigarette Smoking Last 365 Days No; Reg Smoking Cessation Counseling No Assessment and Plan No data available for this section
--- OUTSIDE RECORDS SUMMARY | 2018-03-09 11:23 | XMS REPORT ---
Author Author Barron De Jesus Organization [employer] Address Unknown Phone Unavailable Care Team Providers Care Business Intelligence Director Name Role Phone Barron De Jesus CP Unavailable Encounters Encounter Location Date Unknown [place] Feb 23, 2015 Refill [place] Apr 17, 2015 Problems Problem Type Condition ICD-9 Code Onset Dates Condition Status Problem Obesity, unspecified 278.00 Active Problem Pure hyperglyceridemia E78.1 Active Problem Obesity, unspecified E66.9 Active Problem Hypertensive heart disease without heart failure I11.9 Active Problem Malignant neoplasm of middle lobe, bronchus, or lung 162.4 Active Problem Pure hyperglyceridemia 272.1 Active Problem Malignant neoplasm of middle lobe, bronchus or lung C34.2 Active Problem Benign hypertensive heart disease without heart failure 402.10 Active Medications Medication Code System Code Instructions Start Date End Date Status Dosage Doxepin HCl [facility] [address]-22 25 MG Orally Once a day Active 1 capsule at bedtime Social History Social History Element Qualifiers Date Reported Tobacco Use: . Are you a: former smoker quit in 05/2012 (with Chantix help) Feb 25, 2015 Marital Status: . Feb 25, 2015 Do you drink alcohol? . Status: No Feb 25, 2015 Summary Purpose eClinicalWorks Submission
--- OUTSIDE RECORDS SUMMARY | 2018-03-09 11:23 | XMS REPORT ---
Author Author Barron De Jesus Organization [employer] Address Unknown Phone Unavailable Care Team Providers Care Architectural Technician Name Role Phone Barron De Jesus CP Unavailable Allergies, Adverse Reactions, Alerts Substance Reaction Event Type sulfa Info Not Available Drug Allergy Problems Problem Type Condition Code Onset Dates Condition Status Problem Pure hyperglyceridemia 272.1 Active Problem Benign hypertensive heart disease without heart failure 402.10 Active Problem Malignant neoplasm of middle lobe, bronchus, or lung 162.4 Active Problem Body mass index (BMI) 38.0-38.9, adult Z68.38 Active Problem Type 2 diabetes mellitus with diabetic neuropathy, unspecified E11.40 Active Problem Screening for cardiovascular disorders Z13.6 Active Problem Obesity, unspecified E66.9 Active Problem Malignant neoplasm of middle lobe, bronchus or lung C34.2 Active Problem Hypertensive heart disease without heart failure I11.9 Active Problem Pure hyperglyceridemia E78.1 Active Assessment Body mass index (BMI) 38.0-38.9, adult Z68.38 Active Assessment Obesity, unspecified E66.9 Active Assessment Malignant neoplasm of middle lobe, bronchus or lung C34.2 Active Assessment Pure hyperglyceridemia E78.1 Active Assessment Screening for cardiovascular disorders Z13.6 Active Assessment Hypertensive heart disease without heart failure I11.9 Active Assessment Type 2 diabetes mellitus with diabetic neuropathy, unspecified E11.40 Active Problem Obesity, unspecified 278.00 Active Medications Medication Code System Code Instructions Start Date End Date Status Dosage Alprazolam [facility] [address]-10 0.5 MG Orally Active 1 tablet Metformin HCl [facility] [address]-32 1000 mg Orally daily Active 1 tablet with meals Lisinopril [facility] [address]-22 5 MG Orally Once a day Active 1 tablet Invokana [facility] [address]-96 100 MG Orally Once a day Active 1 tablet Doxepin HCl [facility] [address]-65 25 MG Orally Once a day Active 1 capsule at bedtime Crestor [facility] [address]-82 5 MG Orally Once a day Active 1 tablet Farxiga [facility] [address]-05 5 MG Orally Once a day Active 1 tablet Tramadol HCl [facility] [address]-37 50 mg Orally Active 1/2 half tablet Vital Signs Date/Time: Jan 23, 2017 BMI 38.37 Index Weight 245 lbs Height 5ft 7in in Cardiac Monitoring Heart Rate 94 /min Blood Pressure Diastolic 80 mm Hg Blood Pressure Systolic 135 mm Hg Results No Known Results Summary Purpose [employer]ClinicalWorks Submission
--- OUTSIDE RECORDS SUMMARY | 2018-03-09 11:23 | XMS REPORT | Summary of Care ---
Author Author [facility] Organization [facility] Address Unknown Phone Unavailable Encounter HQ David_jaquan(FIN) [id number] Date(s): 08/29/17 - 08/29/17 [facility] [address] [place] [address]- [phone] Discharge Disposition: Home or Self Care Attending Physician: Myke Mckay MD Referring Physician: Myke Mckay MD Vital Signs No data available for [...] No data available for this section Immunizations Given and Recorded Vaccine Date Status Refusal Reason pneumococcal 23-valent vaccine 07/21/17 Given Procedures Procedure Date Related Diagnosis Body Site Status Abdominal hysterectomy 05/15/89 Completed Reposition of lens of eye 05/15/89 Completed Breast lumpectomy Completed Lobectomy1 Completed 44872 Social History Social History Type Response Smoking Status Former smoker; Type: Cigarettes; Exposure to Tobacco Smoke None; Cigarette Smoking Last 365 Days No; Reg Smoking Cessation Counseling No entered on: 07/20/17 Assessment and Plan No data available for this section
--- OUTSIDE RECORDS SUMMARY | 2018-03-09 11:23 | XMS REPORT ---
Author Author Barron De Jesus Organization [employer] Address Unknown Phone Unavailable Care Team Providers Care Certified Technician Name Role Phone Barron De Jesus CP Unavailable Allergies No Known Allergies Problems Problem Type Condition Code Onset Dates Condition Status Problem Obesity, unspecified 278.00 Active Problem Malignant neoplasm of middle lobe, bronchus, or lung 162.4 Active Problem Pure hyperglyceridemia 272.1 Active Problem Benign hypertensive heart disease without heart failure 402.10 Active Problem Screening for cardiovascular disorders Z13.6 Active Problem Type 2 diabetes mellitus with diabetic neuropathy, unspecified E11.40 Active Problem Body mass index (BMI) 38.0-38.9, adult Z68.38 Active Problem Hypertensive heart disease without heart failure I11.9 Active Problem Malignant neoplasm of middle lobe, bronchus or lung C34.2 Active Problem Obesity, unspecified E66.9 Active Problem Pure hyperglyceridemia E78.1 Active Medications Medication Code System Code Instructions Start Date End Date Status Dosage Crestor [facility] 26025363980 5 MG Orally Once a day Active 1 tablet Results No Known Results Summary Purpose [employer]Works Submission
--- OUTSIDE RECORDS SUMMARY | 2018-03-09 11:23 | XMS REPORT ---
Author Author Barron De Jesus Organization [employer] Address Unknown Phone Unavailable Care Team Providers Care Under Water Assistant Name Role Phone Barron De Jesus CP [...] Instructions Start Date End Date Status Dosage Tramadol HCl [facility] 79129092286 50 mg Orally Active 1/2 half tablet Alprazolam ND 10758728462 0.5 MG Orally Active 1 tablet Lisinopril ND 22358517957 5 MG Orally Once a day Active 1 tablet Metformin HCl ND 09369242976 1000 mg Orally daily Active 1 tablet with meals Doxepin HCl ND 06797131481 25 MG Orally Once a day Active 1 capsule at bedtime Crestor ND 76728243647 5 MG Orally Once a day Active 1 tablet Celebrex ND 53701725476 200 MG Orally Once a day Active 1 capsule with food Results No Known Results Summary Purpose [employer] Submission
--- OUTSIDE RECORDS SUMMARY | 2018-03-09 11:23 | XMS REPORT ---
Author Author Barron De Jesus Organization [employer] Address Unknown Phone Unavailable Care Team Providers Care Manager Protein Name Role Phone Barron De Jesus CP Unavailable Encounters Encounter Location Date Unknown [place] Feb 23, 2015 Refill [place] Apr 17, 2015 Refill [place] August 26, 2015 Problems Problem Type Condition ICD-9 Code [...] Instructions Start Date End Date Status Dosage Lisinopril [facility] [address]-21 5 MG Orally Once a day Active 1 tablet Crestor [facility] [address]-20 5 MG Orally Once a day Active 1 tablet Social History Social History Element Qualifiers Date Reported Tobacco Use: . Are you a: former smoker quit in 05/2012 (with Ch[employer]ix help) August 26, 2015 Marital Status: . August 26, 2015 Do you drink alcohol? . Status: No August 26, 2015 Summary Purpose [employer] Submission
--- OUTSIDE RECORDS SUMMARY | 2018-03-09 11:23 | XMS REPORT ---
Author Author Barron De Jesus Organization [employer] Address Unknown Phone Unavailable Care Team Providers Care Dealership Manager Name Role Phone Braron De Jesus CP Unavailable Encounters Encounter Location Date Follow-Up [place] August 26, 2015 echo/carotid/arterial dopplers [place] September 03, 2015 Unknown Bar[place] Feb [...] heart disease without heart failure 402.10 Active Social History Social History Element Qualifiers Date Reported Tobacco Use: . Are you a: former smoker quit in 05/2012 (with Chantix help) August 28, 2015 Marital Status: . August 28, 2015 Do you drink alcohol? . Status: No August 28, 2015 Summary Purpose [employer] Submission
--- OUTSIDE RECORDS SUMMARY | 2018-03-09 11:23 | XMS REPORT ---
Author Author Barron De Jesus Organization [employer] Address Unknown Phone Unavailable Care Team Providers Care Ocean Biologist Name Role Phone Barron De Jesus CP [...] Start Date End Date Status Dosage Crestor [facility] 95194469717 5 MG Orally Once a day Active 1 tablet Results No Known Results Summary Purpose [employer]ClinicalWorks Submission
--- OUTSIDE RECORDS SUMMARY | 2018-03-09 11:23 | XMS REPORT | Summary of Care ---
Author Author [facility] Organization [facility] Address Unknown Phone Unavailable Encounter MUNDO Walker(YOMAIRA) [id number] Date(s): 09/07/16 - 09/07/16 [facility] [address] [place] [address]- Discharge Diagnosis: Acute low back pain with left-sided sciatica Discharge Disposition: Home or Self Care Attending Physician: Dmitry Marvin MD Vital Signs Most recent to 1 2 oldest [Reference Range]: Height 170.18 cm (09/07/16 7:21 AM) Temperature Oral 97.7 DegF [96.4-99.1 DegF] (09/07/16 7:21 AM) Blood Pressure 130/60 mmHg 136/83 mmHg [90-140/60-90 mmHg] (09/07/16 9:25 AM) (09/07/16 7:21 AM) Respiratory Rate 18 BRMIN 18 BRMIN [14-20 BRMIN] (09/07/16 9:25 AM) (09/07/16 7:21 AM) Peripheral Pulse 66 bpm 78 bpm Rate [60-100 bpm] (09/07/16 9:25 AM) (09/07/16 7:21 AM) Weight 106.818 kg (09/07/16 7:21 AM) Body Mass Index 36.88 m2 (09/07/16 7:21 AM) Problem List Condition Effective Dates Status Health [...] sulfa drugs Active Surgical Tape Active Medications dexamethasone 10 mg, 2.5 mL, Route: IM, Drug form: INJ, ONCE, Dosing Weight 106.818, kg, Prior ity: STAT, Start date: 09/07/16 7:47:00 CDT, Stop date: 09/07/16 7:47:00 CDT Start Date: 09/07/16 Stop Date: 09/07/16 Status: Completed ketOROLAC 60 mg, 2 mL, Route: IM, Drug form: INJ, ONCE, Dosing Weight 106.818, kg, Priorit y: STAT, Start date: 09/07/16 7:34:00 CDT, Stop date: 09/07/16 7:34:00 CDT Notes: (Same as:Toradol) IV bolus must be given >15 seconds. Give IM administration slowly and deeply into the muscle.Not for use > 4 days MEDICATION WASTE Product Size: 60 mgProduct Wasted: ___ mg Start Date: 09/07/16 Stop Date: 09/07/16 Status: Completed [place] 10/325 oral tablet 1 tab, Route: PO, Drug Form: TAB, Dosing Weight 106.818, kg, ONCE, STAT, Start d ate: 09/07/16 7:36:00 CDT, Stop date: 09/07/16 7:36:00 CDT Notes: Do not exceed 4gm/day of acetaminophen. (Same as: [place] 325/10) Start Date: 09/07/16 Stop Date: 09/07/16 Status: Completed Tylenol with Codeine #3 oral tablet 1 - 2 tab, PO, Q4H, PRN Pain, X 2 day, # 20 tab, 0 Refill(s) Start Date: 09/07/16 Stop Date: 09/09/16 Status: Completed Valium 5 mg, 1 tab, Route: PO, Drug form: TAB, ONCE, Dosing Weight 106.818, kg, Priorit y: STAT, Start date: 09/07/16 7:37:00 CDT, Stop date: 09/07/16 7:37:00 CDT Notes: (Same as: Valium) Start Date: 09/07/16 Stop Date: 09/07/16 Status: Completed Valium 5 mg oral tablet 5 mg, PO, Q8-12H, PRN Anxiety / dizziness, X 7 day, # 20 tab, 0 Refill(s) Start Date: 09/07/16 Stop Date: 09/14/16 Status: Ordered Results URINE AND STOOL Most recent to 1 oldest [Reference Range]: UA Turbidity [Clear] Slight Cloudy (09/07/16 8:14 AM) UA Color [Yellow] Yellow *NA* (09/07/16 8:14 AM) UA pH [5.0-8.0] 5.5 (09/07/16 8:14 AM) UA Spec Grav 1.020 [<=1.030] (09/07/16 8:14 AM) UA Glucose [Negative >=1000 mg/dL mg/dL] *ABN* (09/07/16 8:14 AM) UA Blood [Negative] Negative (09/07/16 8:14 AM) UA Ketones Negative [Negative] *NA* (09/07/16 8:14 AM) UA Protein Negative [Negative] (09/07/16 8:14 AM) UA Urobilinogen 0.2 EU/dL [0.1-1.0 EU/dL] (09/07/16 8:14 AM) UA Bili [Negative] Negative *NA* (09/07/16 8:14 AM) UA Leuk Est Negative [Negative] (09/07/16 8:14 AM) UA Nitrite Positive [Negative] *ABN* (09/07/16 8:14 AM) UA Bacteria [None Few /HPF Seen /HPF] (09/07/16 8:14 AM) UA Sq Epi [Few /LPF] Occasional /LPF (09/07/16 8:14 AM) Immunizations No data available for this section Procedures Procedure Date Related Diagnosis Body Site Abdominal hysterectomy 05/15/89 Reposition of lens of eye 05/15/89 Breast lumpectomy Lobectomy1 19927 Social History Social History Type Response Smoking Status Former smoker; Type: Cigarettes; Exposure to Tobacco Smoke None; Cigarette Smoking Last 365 Days No; Reg Smoking Cessation Counseling No Assessment and Plan No data available for this section
--- OUTSIDE RECORDS SUMMARY | 2018-03-09 11:23 | XMS REPORT | Summary of Care ---
Author Author [facility] Organization [facility] Address Unknown Phone Unavailable Encounter HQ David_jaquan(FIN) [id number] Date(s): 03/16/17 - 03/16/17 [facility] [address] [place] [address]- [phone] Discharge Disposition: Home or Self Care Attending [...] lens of eye 05/15/89 Breast lumpectomy Lobectomy1 41359 Social History Social History Type Response Smoking Status Former smoker; Type: Cigarettes; Exposure to Tobacco Smoke None; Cigarette Smoking Last 365 Days No; Reg Smoking Cessation Counseling No Assessment and Plan No data available for this section
--- OUTSIDE RECORDS SUMMARY | 2018-03-09 11:23 | XMS REPORT ---
Author Author Barron De Jesus Organization [employer] Address Unknown Phone Unavailable Care Team Providers Care Freight Loader Name Role Phone Barron De Jesus CP Unavailable Allergies, Adverse Reactions, Alerts Substance Reaction Event Type sulfa Info Not Available Drug Allergy Problems Problem Type Condition Code Onset Dates Condition Status Problem Obesity, unspecified 278.00 Active Problem Malignant neoplasm of middle lobe, bronchus, or lung 162.4 Active Problem Pure hyperglyceridemia 272.1 Active Problem Screening for cardiovascular disorders Z13.6 Active Problem Type 2 diabetes mellitus with diabetic neuropathy, unspecified E11.40 Active Problem Body mass index (BMI) 38.0-38.9, adult Z68.38 Active Problem Hypertensive heart disease without heart failure I11.9 Active Problem Malignant neoplasm of middle lobe, bronchus or lung C34.2 Active Problem Obesity, unspecified E66.9 Active Problem Pure hyperglyceridemia E78.1 Active Assessment Body mass index (BMI) 38.0-38.9, adult Z68.38 Active Assessment Malignant neoplasm of middle lobe, [...] Instructions Start Date End Date Status Dosage Celebrex [facility] 74664451329 200 MG Orally Once a day Active 1 capsule with food Doxepin HCl [facility] 67004609568 25 MG Orally Once a day Active 1 capsule at bedtime Lisinopril ND 32959291891 5 MG Orally Once a day Active 1 tablet Crestor ND 85907495074 5 MG Orally Once a day Active 1 tablet Tramadol HCl ND 93513086788 50 mg Orally Active 1/2 half tablet Farxiga ND 60014824316 5 MG Orally Once a day Active 1 tablet Alprazolam ND 47834201828 0.5 MG Orally Active 1 tablet Metformin HCl [facility] 94876657774 1000 mg Orally daily Active 1 tablet with meals Vital Signs Date/Time: Jan 31, 2018 BMI 39.78 Index Weight 254 lbs Height 5ft 7in in Cardiac Monitoring Heart Rate 85 /min Blood Pressure Diastolic 80 mm Hg Blood Pressure Systolic 120 mm Hg Results No Known Results Summary Purpose eClinicalWorks Submission
--- OUTSIDE RECORDS SUMMARY | 2018-03-09 11:23 | XMS REPORT | Summary of Care ---
Author Author [facility] Organization [facility] Address Unknown Phone Unavailable Encounter HQ Denise(YOMAIRA) [id number] Date(s): 10/07/15 - 10/07/15 [facility] [address] [place] [address]- [phone] Discharge Disposition: Home Attending Physician: Shayy Lobo MD Vital Signs No data available for [...] lens of eye 05/15/89 Breast lumpectomy Lobectomy1 97856 Social History Social History Type Response Smoking Status Former smoker; Type: Cigarettes; Exposure to Tobacco Smoke None; Cigarette Smoking Last 365 Days No; Reg Smoking Cessation Counseling No Assessment and Plan No data available for this section
--- OUTSIDE RECORDS SUMMARY | 2018-03-09 11:23 | XMS REPORT | Summary of Care ---
Author Author [facility] Organization [facility] Address Unknown Phone Unavailable Encounter HQ Denise(YOMAIRA) [id number] Date(s): 10/02/15 - 10/02/15 [facility] [address] [place] [address]- Discharge Disposition: Home Attending Physician: Ramakrishna Bailey MD Referring Physician: Shayy Lobo MD Vital Signs No [...] lens of eye 05/15/89 Breast lumpectomy Lobectomy1 79336 Social History Social History Type Response Smoking Status Former smoker; Type: Cigarettes; Exposure to Tobacco Smoke None; Cigarette Smoking Last 365 Days No; Reg Smoking Cessation Counseling No Assessment and Plan No data available for this section
--- OUTSIDE RECORDS SUMMARY | 2018-03-09 11:24 | XMS REPORT ---
Author Author Barron De Jesus Organization [employer] Address Unknown Phone Unavailable Care Team Providers Care News Producer Name Role Phone Barron De Jesus Unavailable Allergies, Adverse Reactions, Alerts Substance Reaction Event Type sulfa Info Not Available Drug Allergy Encounters Encounter Location Date Follow-Up [place] August 26, 2015 echo/carotid/arterial dopplers [place] September 03, 2015 Follow-Up Barron [place] Jan 28, 2016 Unknown Barron [place] Feb 23, 2015 Refill Barron [place] Apr 17, 2015 Refill Barron De Jesus [place], [place] August 26, 2015 Problems Problem Type Condition ICD-9 Code Onset Dates Condition Status Assessment Hypertensive heart disease without heart failure I11.9 Active Problem Pure hyperglyceridemia 272.1 Active Problem Obesity, [...] lobe, bronchus or lung C34.2 Active Assessment Type 2 diabetes mellitus with diabetic neuropathy, unspecified E11.40 Active Assessment Malignant neoplasm of middle lobe, bronchus or lung C34.2 Active Assessment Obesity, unspecified E66.9 Active Assessment Pure hyperglyceridemia E78.1 Active Medications Medication Code System Code Instructions Start Date End Date Status Dosage Lisinopril [facility] [address]-86 5 MG Orally Once a day Active 1 tablet Lyrica [facility] [address]-08 50 MG Orally Three times a day Active 1 capsule Alprazolam [facility] [address]-19 0.5 MG Orally Active 1 tablet Crestor [facility] [address]-02 5 MG Orally Once a day Active 1 tablet Metformin HCl [facility] [address]-18 1000 mg Orally daily Active 1 tablet with meals Tramadol HCl [facility] [address]-39 50 mg Orally Active 1/2 half tablet Cymbalta [facility] [address]-93 30 MG Orally Twice a day Active 1 capsule Doxepin HCl [facility] [address]-83 25 MG Orally Once a day Active 1 capsule at bedtime Invokana [facility] [address]-73 100 MG Orally Once a day Active 1 tablet Social History Social History Element Qualifiers Date Reported Tobacco Use: . Are you a: former smoker quit in 05/2012 (with [employer] help) Jan 28, 2016 Marital Status: . Jan 28, 2016 Do you drink alcohol? . Status: No Jan 28, 2016 Vital Signs Date/Time: Jan 28, 2016 Weight 240 lbs Cardiac Monitoring Heart Rate 82 /min Blood Pressure Diastolic 70 mm Hg Blood Pressure Systolic 138 mm Hg Summary Purpose eClinicalWorks Submission
--- OUTSIDE RECORDS SUMMARY | 2018-03-09 11:24 | XMS REPORT ---
Author Author Barron De Jesus Organization [employer] Address Unknown Phone Unavailable Care Team Providers Care Wired Music Operator Name Role Phone Barron De Jesus CP Unavailable Encounters Encounter Location Date Follow-Up [place] August 26, 2015 echo/carotid/arterial dopplers [place] September 03, 2015 Follow-Up Barron [place], [place] Jan 28, 2016 refill Barron De [place], [place] Mar 02, 2016 Unknown Barron [place] Feb 23, 2015 Refill Barron De [place], [place] Apr 17, 2015 Refill Barron De Jesus [place], [place] August 26, 2015 Refill Barron De Jesus [place], [place] May 10, 2016 Problems Problem Type Condition ICD-9 Code Onset Dates Condition Status Problem Pure [...] Start Date End Date Status Dosage Crestor [facility] [address]-83 5 MG Orally Once a day Active 1 tablet Social History Social History Element Qualifiers Date Reported Tobacco Use: . Are you a: former smoker quit in 05/2012 (with Chantix help) Jan 28, 2016 Marital Status: . Jan 28, 2016 Do you drink alcohol? . Status: No Jan 28, 2016 Summary Purpose eClinicalWorks Submission
--- OUTSIDE RECORDS SUMMARY | 2018-03-09 11:24 | XMS REPORT ---
Author Author Barron De Jesus Organization [employer] Address Unknown Phone Unavailable Care Team Providers Care Wildlife Biostation Research Ecologist Name Role Phone Barron De Jesus CP [...] Instructions Start Date End Date [facility] D[facility] [address]-37 5 MG Orally Once a day Active 1 tablet Social History Social History Element Qualifiers Date Reported Tobacco Use: . Are you a: former smoker quit in 05/2012 (with Chantix help) Jan 28, 2016 Marital Status: . Jan 28, 2016 Do you drink alcohol? . Status: No Jan 28, 2016 Summary Purpose eClinicalWorks Submission
--- OUTSIDE RECORDS SUMMARY | 2018-03-09 11:24 | XMS REPORT ---
Author Author Barron De Jesus Organization [employer] Address Unknown Phone Unavailable Care Team Providers Care Human Service Worker Name Role Phone Barron De Jesus Unavailable Allergies, Adverse Reactions, Alerts Substance Reaction Event Type sulfa Info Not Available Drug Allergy Encounters Encounter Location Date Follow-Up Barron De Jesus [place], [place] August 26, 2015 Unknown Barron De [place], [place] Feb 23, 2015 Refill Barron De Jesus [place], [place] Apr 17, 2015 Refill Barron De Jesus [place], [place] August 26, 2015 Problems Problem Type Condition ICD-9 Code Onset Dates Condition Status Assessment Pure hyperglyceridemia E78.1 Active Problem Obesity, unspecified 278.00 Active Assessment Hypertensive heart disease without heart failure I11.9 Active Assessment Malignant neoplasm of middle lobe, bronchus or lung C34.2 Active Assessment Obesity, unspecified E66.9 Active Problem Pure hyperglyceridemia E78.1 Active Problem [...] Instructions Start Date End Date Status Dosage Cymbalta [facility] [address]-53 30 MG Orally Twice a day Active 1 capsule Alprazolam [facility] [address]-71 0.5 MG Orally Active 1 tablet Lisinopril [facility] [address]-28 5 MG Orally Once a day Active 1 tablet Doxepin HCl [facility] [address]-68 25 MG Orally Once a day Active 1 capsule at bedtime Invokana [facility] [address]-12 100 MG Orally Once a day Active 1 tablet Lyrica [facility] [address]-31 50 MG Orally Three times a day Active 1 capsule Metformin HCl [facility] [address]-58 1000 mg Orally daily Active 1 tablet with meals [facility] [address]-56 5 MG Orally Once a day Active 1 tablet Social History Social History Element Qualifiers Date Reported Tobacco Use: . Are you a: former smoker quit in 05/2012 (with Chantix help) August 28, 2015 Marital Status: . August 28, 2015 Do you drink alcohol? . Status: No August 28, 2015 Vital Signs Date/Time: August 26, 2015 Weight 240 lbs Cardiac Monitoring Heart Rate 81 /min Blood Pressure Diastolic 70 mm Hg Blood Pressure Systolic 103 mm Hg Summary Purpose eClinicalWorks Submission
[2018-03-09] MEDS ORDERED: METHYLPREDNISOLONE SOD SUCC 40 MG/ML VIAL IV ONE (11:45)
[2018-03-09] MEDS ORDERED: ALBUTEROL SULF 0.083% NEB SOLN 3 ML NEB NEB ONE ×2 (11:45→13:30)
--- NOTE | 2018-03-09 13:24 | Diagnostic Imaging Report ---
EXAM: CT Chest WITH contrast COMPARISON: None TECHNIQUE: Chest was scanned utilizing a multidetector helical scanner from the lung apex through the level of the diaphragm after administration of IV contrast. Thin section reconstructions were obtained with special concentration on the pulmonary arteries. Coronal and sagittal reformations were obtained. Pulmonary embolism protocol was performed. IV CONTRAST: 100 cc of Isovue 370 RADIATION DOSE: Total DLP: 524.9 mGy*cm Estimated effective dose: (DLP x 0.014 x size factor) mSv COMPLICATIONS: None FINDINGS: LINES/ TUBES: None. LUNGS AND AIRWAYS: No filling defect is identified within the pulmonary arteries to the segmental level. The central airways are patent. There are post surgical changes related to wedge resection involving right middle lobe, There is linear soft tissue along the surgical site. Mild paraseptal and centrilobular emphysematous changes of lungs. Bilateral mosaic attenuation is noted. There is biapical pleural-parenchymal opacity. Multiple bilateral groundglass opacities are noted, examples include a 7 mm groundglass nodular opacity in the left upper lobe on series 109, image 24; an 8 mm ground glass nodular opacity in the right upper lobe on image 20; patchy ground glass opacity in the right upper lobe on image 33; and patchy ground glass opacity in the right lower lobe on image 67. PLEURA: No pleural effusion or pneumothorax. HEART AND MEDIASTINUM: The thyroid gland is normal. No mediastinal, hilar or axillary lymphadenopathy. The heart is normal in size. Atherosclerotic coronary and aortic calcifications. There is no pericardial effusion. Main pulmonary artery measures 3.5 cm in diameter. UPPER ABDOMEN: Limited non-contrast views of the upper abdomen show no abnormality within the visualized spleen, pancreas, or kidneys. The adrenal glands are normal. Diffuse fatty liver. BONES: No acute bony abnormality. Old right seventh and eighth posterolateral rib fractures. SOFT TISSUES: Unremarkable. IMPRESSION: No evidence of pulmonary embolism to the segmental level. Enlarged main pulmonary artery suggestive of pulmonary arterial hypertension. Aortic and coronary atherosclerosis. Emphysematous changes of the lungs. Bilateral ground glass nodular and patchy ground glass opacities, which may be infectious or inflammatory. Follow-up chest CT in 3-6 months is suggested to assess for resolution. Status post right middle lobe wedge resection. Soft tissue along the surgical site may reflect post surgical or treatment changes, and can be further assessed on follow-up chest CT. Mosaic attenuation of the lungs which could represent small airways disease or occlusive vascular disease. Diffuse fatty liver. Signed by: Dr. Arely Morrow MD on 03/09/2018 1:21 PM
== END 2018-03-09 17:15 | disposition short-term general hospital (02) ==
LOC: FSED 11:18
DX: R06.00 Dyspnea, unspecified (principal); R05 Cough; J44.1 Chronic obstructive pulmonary disease with (acute) exacerbation; R09.02 Hypoxemia; Z87.891 Personal history of nicotine dependence; E11.9 Type 2 diabetes mellitus without complications; Z85.118 Personal history of other malignant neoplasm of bronchus and lung
CPT/HCPCS: 71275; 80053; 80076; 81003; 82553; 83880; 84484; 85025; 85379; 85610; 87400; 93005; 99284; J2920

== ENCOUNTER 2020-08-08 09:54 | Emergency (ER) | payer BC ==
[~2020-08-08] VITALS: Ht 170.2 cm; Wt 113.4 kg
[2020-08-08] MEDS ORDERED: ASPIRIN 81 MG CHEW TAB PO ONE (10:15)
[2020-08-08] MEDS ORDERED: ASPIRIN 81 MG CHEW TAB ONE (10:52)
[2020-08-08] MEDS ORDERED: SODIUM CHLORIDE 0.9% 50ML 50 ML ONE (11:12)
[2020-08-08] MEDS ORDERED: IOPAMIDOL 370 MG/ML 200 ML INFUS..BTL INJ ONE (11:12)
[2020-08-08 13:16] VITALS: BP 147/88
== END 2020-08-08 13:24 | disposition home or self-care (01) ==
LOC: FSED 10:30
DX: R06.00 Dyspnea, unspecified (principal); R05 Cough; E11.9 Type 2 diabetes mellitus without complications; Z85.118 Personal history of other malignant neoplasm of bronchus and lung; Z20.822 Contact with and (suspected) exposure to COVID-19
CPT/HCPCS: 71045; 71260; 80053; 82553; 84484; 85025; 85379; 85610; 99284; Q9967; U0002